=== PATIENT | female | born 1965 | race Caucasian/White ===

== ENCOUNTER → 2017-11-06 09:36 | Outpatient (CLI) | payer OTHER, MEDICAID, SELFPAY ==
--- NOTE | 2017-11-06 09:37 | DI.RAD.S_ITS ---
PROCEDURE: XR HIP W PEL IF DONE LT 2V INDICATIONS: left hip pain TECHNIQUE: 2 views of the hip were acquired. COMPARISON: None. FINDINGS: Bones: No fractures or dislocations. No suspicious bony lesions. The visualized pelvic ring appears intact. Soft tissues: No suspicious soft tissue calcifications or masses. IMPRESSION: Normal for age, source of current symptoms is not seen. Dictated by: Alfie Meza M.D. on 11/06/2017 at 9:53 Approved by: Alfie Meza M.D. on 11/06/2017 at 9:53
== END ==
PROVIDERS: PCP Physician Assistant; Visit Provider Physician Assistant
DX: M25.552 Pain in left hip (principal)
CPT/HCPCS: 73502

== ENCOUNTER → 2017-12-07 09:32 | Outpatient (CLI) | payer OTHER, MEDICAID, SELFPAY ==
--- NOTE | 2017-12-07 09:37 | DI.MRI.S_ITS ---
PROCEDURE: MR LUMBAR SPINE WO CON INDICATIONS: BACK PAIN RADICULAR PAIN OF LEFT LEG TECHNIQUE: Noncontrast sagittal T1 spin echo and T2 fast echo, sagittal STIR, axial T1 and T2 fast spin echo through the lumbar spine. In cases with scoliosis, additional coronal T2 fast spin echo may be performed. COMPARISON: [facility], , L-SPINE 2-3 VIEWS, 08/10/2017, 16:25. FINDINGS: Image quality: Excellent. Alignment and Curvature: There is normal bony alignment. Bone Marrow: Marrow is of normal overall signal. Minimal reactive endplate changes are present at T12-L1. No acute vertebral body compression fractures. Spinal Cord: Conus medullaris terminates at the L1-2 level. Visualized cord demonstrates normal signal and size. Paraspinous Soft Tissues: No paravertebral masses. Discs: Mild desiccation is present at L3-4, minimal throughout the remainder of the lumbar spine. L1-L2: No disc bulge, spinal stenosis or foraminal narrowing. Minimal epidural lipomatosis. Minimal facet and ligamentum flavum hypertrophy. L2-L3: Minimal disc bulge without spinal stenosis or foraminal narrowing. Minimal epidural lipomatosis as well as minimal to mild facet/ligamentum flavum hypertrophy. L3-L4: Mild disc bulge with minimal spinal stenosis. Mild epidural lipmatosis. Mild facet and ligamentum flavum hypertrophy. Moderate left and mild right foraminal narrowing. L4-L5: Mild disc bulge with minimal canal narrowing. [id number] left and mild right foraminal narrowing with mild facet and ligamentum flavum hypertrophy. Minimal epidural lipomatosis is present. L5-S1: Minimal disc bulge without spinal stenosis. Minimal to mild bilateral foraminal narrowing with facet and ligamentum flavum hypertrophy. IMPRESSION: 1. Multilevel disc bulges. 2. Minimal spinal stenosis predominantly secondary to disc bulges with contributing facet/ligamentum flavum arthropathy. 3. Mild to moderate multilevel foraminal narrowing predominantly secondary to facet/ligamentum flavum arthropathy. Most prominent levels are identified at L3-4 and L4-5. Dictated by: Lisa Dupree M.D. on 12/07/2017 at 13:49 Approved by: Lisa Dupree M.D. on 12/07/2017 at 15:26
== END ==
PROVIDERS: Family Provider Physician Assistant; PCP Physician Assistant; Visit Provider Physician Assistant
DX: M54.9 Dorsalgia, unspecified (principal); M79.605 Pain in left leg; M51.26 Other intervertebral disc displacement, lumbar region; M48.061 Spinal stenosis, lumbar region without neurogenic claudication
CPT/HCPCS: 72148

== ENCOUNTER → 2017-12-14 14:58 | Outpatient (CLI) | payer OTHER, MEDICAID, SELFPAY ==
--- NOTE | 2017-12-14 | DI.MG.S_ITS ---
BILATERAL DIGITAL SCREENING MAMMOGRAM 3D/2D WITH CAD: 12/14/2017 CLINICAL: Routine screening. Family history of breast cancer. Comparison is made to exam dated: 12/28/2007 mammogram - [facility]. There are scattered fibroglandular elements in both breasts. Current study was also evaluated with a Computer Aided Detection (CAD) system. There is a focal asymmetry in the left breast middle depth lateral region seen on the craniocaudal view only. No other significant masses, calcifications, or other findings are seen in either breast. IMPRESSION: INCOMPLETE: NEEDS ADDITIONAL IMAGING EVALUATION The focal asymmetry in the left breast is indeterminate. Additional views with possible ultrasound are recommended. This exam was interpreted at Station ID: [id number]. NOTE: For mammograms, a report in lay terms will be sent to the patient. Approximately 15% of breast malignancies will not be visualized mammographically. In the management of a palpable breast mass, a negative mammogram must not discourage biopsy of a clinically suspicious lesion. Electronically Signed By: Jose Martin cali/oli:12/14/2017 17:27:13 letter sent: Additional Imaging Needed ACR BI-RADS Category 0: Incomplete 3340F
== END ==
PROVIDERS: Family Provider Physician Assistant; PCP Physician Assistant; Visit Provider Physician Assistant
DX: Z12.31 Encounter for screening mammogram for malignant neoplasm of breast (principal); Z80.3 Family history of malignant neoplasm of breast
CPT/HCPCS: 77063; 77067

== ENCOUNTER → 2018-01-15 09:24 | Outpatient (CLI) | payer OTHER, MEDICAID, SELFPAY ==
--- NOTE | 2018-01-15 09:26 | DI.MG.S_ITS ---
UNILATERAL LEFT DIGITAL DIAGNOSTIC MAMMOGRAM 3D/2D WITH ADDITIONAL VIEWS: 01/15/2018 CLINICAL: Additional evaluation requested from prior study. Comparison is made to exams dated: 12/14/2017 mammogram - [facility] and 12/28/2007 mammogram - [facility]. There are scattered fibroglandular elements in the left breast. The benign focal asymmetry in the left breast middle depth lateral region seen on the craniocaudal view only is not seen in additional views. No other significant masses or calcifications are seen in the breast. IMPRESSION: BENIGN There is no mammographic evidence of malignancy. A 1 year screening mammogram is recommended. This exam was interpreted at Station ID: [id number]. NOTE: For mammograms, a report in lay terms will be sent to the patient. Approximately 15% of breast malignancies will not be visualized mammographically. In the management of a palpable breast mass, a negative mammogram must not discourage biopsy of a clinically suspicious lesion. Electronically Signed By: Collette Murphy M.D. lk/:01/15/2018 10:12:12 letter sent: Normal Exam ACR BI-RADS Category 2: Benign Finding(s) 3342F
== END ==
PROVIDERS: Family Provider Physician Assistant; PCP Physician Assistant; Visit Provider Physician Assistant
DX: R92.8 Other abnormal and inconclusive findings on diagnostic imaging of breast (principal)
CPT/HCPCS: 77065; G0279

== ENCOUNTER → 2018-03-15 11:37 | Outpatient (CLI) | payer OTHER, MEDICAID, SELFPAY ==
[2018-03-15 12:55] LABS: Alanine Aminotransferase 34 IU/L (9-52); Albumin 4.9 g/dL (3.5-5.0); Albumin Globulin Ratio 1.5 (1.0-2.8); Alkaline Phosphatase 48 U/L (38-126); Aspartate Aminotransferase 32 IU/L (14-36); Bilirubin Total 0.8 mg/dL (0.2-1.3); Blood Urea Nitrogen 15 mg/dL (7-17); Calcium 10.3 mg/dL (8.4-10.2); Carbon Dioxide 29 mmol/L (22-32); Chloride 100 mmol/L (98-107); Cholesterol 263 mg/dL (140-199); Estimated Glomerular Filt Rate > 60.0 mL/min (>60); Globulin 3.3 g/dL (1.7-4.1); Glucose 104 mg/dL (70-100); HDL Cholesterol 84 mg/dL (40-60); HEMOLYSIS < 15 (0-50); LDL Cholesterol Calculated 146 mg/dL (<100); Potassium 4.1 mmol/L (3.4-5.1); Sodium 140 mmol/L (137-145); Total Protein 8.2 g/dL (6.3-8.2); Triglycerides 166 mg/dL (35-150)
[2018-03-15 13:23] LABS: Free T4, Direct Thyroxine 0.89 ng/dL (0.78-2.19)
== END ==
PROVIDERS: PCP Physician Assistant; Visit Provider Physician Assistant
DX: E78.2 Mixed hyperlipidemia (principal); M25.552 Pain in left hip; Z83.49 Family history of other endocrine, nutritional and metabolic diseases
CPT/HCPCS: 36415; 80053; 80061; 84439; 84443; 84481

== ENCOUNTER 2018-06-13 11:05 | Emergency (ER) | payer OTHER, MEDICAID, SELFPAY ==
[2018-06-13 11:27] VITALS: BP 157/87; PULSE 79; RESP 18; TEMP 36.9; O2SAT 98; BMI 27.4
--- NOTE | 2018-06-13 12:17 | ED.URI ---
HPI - URI/Sore Throat <CASSANDRA Castellanos - Last Filed: 06/13/18 22:06> General Chief Complaint: Upper Respiratory Symptoms Stated Complaint: CHEST COLD FOR A WEEK Time Seen by Provider: 06/13/18 12:06 Source: patient Mode of arrival: ambulatory Limitations: no limitations History of Present Illness HPI Narrative: 52-year-old healthy female that is a nonsmoker here for complaint of having a cold-like symptoms for the past week. She states she has had a productive cough. No known fever. Positive p.o. intake. She has been using guaifenesin to help with her congestion. She also reports she has had anterior chest pain over the past couple days she thinks is most likely due to cough. She does state that a couple days ago she felt like she was short of breath but she has no shortness of breath at this time. She reports increased pain to the chest with cough. She denies any relievers of her discomfort. No nausea vomiting. No diaphoresis. MD Complaint: cough Related Data Previous Rx's Medication Instructions Recorded diazepam 5 mg PO TID PRN #15 tab 08/04/17 lorazepam 1 mg tablet 1 mg PO ONCE PRN #1 tab 11/06/17 Allergies Allergy/AdvReac Type Severity Reaction Status Date / Time codeine [CODEINE] Allergy Unknown jittery,hea Verified 06/13/18 11:35 dache pain killers Allergy Unknown severe Uncoded 06/13/18 11:35 headache SULFA Allergy Unknown RASH, DALE, Uncoded 06/13/18 11:35 NAUSEA Review of Systems <CASSANDRA Castellanos - Last Filed: 06/13/18 22:06> Constitutional Denies chills, Denies fatigue, Denies fever(s), Denies lethargy and Denies weakness Eyes Denies change in vision, Denies eye discharge, Denies irritation and Denies loss of vision ENT Ears, Nose, Mouth, and Throat: Denies change in voice, Denies neck pain, Denies sore throat and Denies throat swelling Cardiovascular Reports chest pain Respiratory Reports cough and Denies wheezing Gastrointestinal Gastrointestinal: Denies abdominal pain, Denies change in bowel habits, Denies diarrhea, Denies nausea and Denies vomiting Genitourinary Denies hematuria, Denies flank pain, Denies urinary incontinence and Denies urinary urgency Musculoskeletal Denies neck pain Integumentary/Breasts Denies pruritus, Denies erythema, Denies rash and Denies wounds Neurologic Denies confusion, Denies loss of vision and Denies weakness Psychiatric Denies anxiety, Denies confusion, Denies depression, Denies homicidal ideation and Denies suicidal ideation Endocrine Denies fatigue and Denies flushing Hematologic/Lymphatic Denies easy bruising Allergic/Immunologic Denies urticaria, Denies throat swelling and Denies wheezing Exam <CASSANDRA Castellanos - Last Filed: 06/13/18 22:06> Initial Vital Signs Initial Vital Signs: Vital Signs Temperature 98.4 F 06/13/18 11:27 Pulse Rate 79 06/13/18 11:27 Respiratory Rate 18 06/13/18 11:27 Blood Pressure 157/87 H 06/13/18 11:27 Pulse Oximetry 98 06/13/18 11:27 Const General: cooperative and well developed Nutritional Appearance: well nourished Orientation: alert, awake, oriented x3 and not confused HENMT Mouth: oral mucosae normal and mucous membranes abnormal Eyes Conjunctivae: conjunctivae normal Sclera: sclerae normal Pupils: PERRL EOM: EOM intact bilaterally Chest Chest: normal inspection of the chest Other: Tenderness with palpation to the left anterior chest Resp Effort & Inspection: normal respiratory effort, able to speak in complete sentences, no respiratory distress and no use of accessory muscles Auscultation: clear to auscultation bilaterally, no rales, no rhonchi and no wheezes Cardio Rate: regular rate Rhythm: regular rhythm Heart Sounds: no click, no gallops, no murmurs and no rubs Skin General: no rashes or lesions noted, No jaundice and No petechiae Neuro General: alert, oriented x3, gait normal and no focal motor deficits Speech: speech normal <Danny Ireland DO - Last Filed: 06/16/18 08:35> Initial Vital Signs Initial Vital Signs: Vital Signs Temperature 98.4 F 06/13/18 11:27 Pulse Rate 79 06/13/18 11:27 Respiratory Rate 18 06/13/18 11:27 Blood Pressure 157/87 H 06/13/18 11:27 Pulse Oximetry 98 06/13/18 11:27 Scores <CASSANDRA Castellanos - Last Filed: 06/13/18 22:06> HEART Score Heart Score history: Slightly Suspicious Heart Score EKG: Normal Heart Score Age: 45-64 years old Heart Score risk factors: No known risk factors Heart Score troponin: < or = to normal limit Heart Score Total: 1 Course <CASSANDRA Castellanos - Last Filed: 06/13/18 22:06> Orders Ordered: ED Orders 06/13/18 11:37 EKG-12 Lead Stat 06/13/18 12:24 XR chest 2V Stat 06/13/18 12:38 Complete Blood Count AUTO DIFF Stat Comprehensive Metabolic Panel Stat Lipase Stat Troponin & CK Cardiac Panel Stat Vital Signs - 8 hr 06/13/18 14:41 Pulse Rate 79 Respiratory Rate 18 Blood Pressure [Left Arm] 106/87 Pulse Oximetry 96 <Danny Ireland DO - Last Filed: 06/16/18 08:35> Orders Ordered: ED Orders 06/13/18 11:37 EKG-12 Lead Stat 06/13/18 12:24 XR chest 2V Stat 06/13/18 12:38 Complete Blood Count AUTO DIFF Stat Comprehensive Metabolic Panel Stat Lipase Stat Troponin & CK Cardiac Panel Stat Vital Signs - 8 hr 06/13/18 14:41 Pulse Rate 79 Respiratory Rate 18 Blood Pressure [Left Arm] 106/87 Pulse Oximetry 96 MDM - URI/Sore Throat <CASSANDRA Castellanos - Last Filed: 06/13/18 22:06> Lab Data Result diagrams: 06/13/18 12:38 06/13/18 12:38 Lab Results 06/13/18 06/13/18 Range/Units 12:38 12:38 WBC 6.2 (4.5-11.0) X10^3/uL RBC 3.97 L (4.0-5.2) X10^6/uL Hgb 13.7 (12.0-16.0) g/dL Hct 39.7 (36-46) % MCV 100.2 H (80-100) fL MCH 34.5 H (26-34) PG MCHC 34.4 (30-36) % RDW 13.4 (11.6-14.8) % Plt Count 253 (150-400) X10^3/uL Neut % (Auto) 60.2 (50-75) % Lymph % (Auto) 25.8 (25-40) % Fountain % (Auto) 12.0 (3-14) % Eos % (Auto) 1.4 L (2-4) % Baso % (Auto) 0.6 (0-2) % Neut # (Auto) 3700 (8742-5567) /uL Sodium 137 (137-145) mmol/L Potassium 4.5 (3.4-5.1) mmol/L Chloride 101 (98-107) mmol/L Carbon Dioxide 25 (22-32) mmol/L BUN 17 (7-17) mg/dL Creatinine 0.60 (0.52-1.04) mg/dL Estimated GFR > 60.0 (>60) mL/min BUN/Creatinine Ratio 28.3 H (6-22) Glucose 97 (70-100) mg/dL Calcium 9.9 (8.4-10.2) mg/dL Total Bilirubin 0.5 (0.2-1.3) mg/dL AST 36 (14-36) IU/L ALT 39 (9-52) IU/L Alkaline Phosphatase 49 (38-126) U/L Total Creatine Kinase 52 (30-135) U/L CK-MB (CK-2) TNP CK-MB (CK-2) Rel Index TNP Troponin I < 0.012 (0.01-0.034) ng/mL Total Protein 8.1 (6.3-8.2) g/dL Albumin 4.9 (3.5-5.0) g/dL Globulin 3.2 (1.7-4.1) g/dL Albumin/Globulin Ratio 1.5 (1.0-2.8) Lipase 66 (23-300) U/L Imaging Data Chest x-ray: Radiologist's impression: Launch Image View Report History Print [address] [address] XRay Report Signed Patient: Paige Lamebrt MR#: [id number] : 1965 Acct:[id number] Age/Sex: 52 / F Date of Service: 06/13/18 Loc: ED Accession Number: [id number] Procedure: XR chest 2V Ordering Provider: Chuy Martinez PROCEDURE: XR CHEST 2V INDICATIONS: Cough for the last week with chest pain last couple days TECHNIQUE: 2 views of the chest were acquired. COMPARISON: [facility], CR, CHEST 2 VIEW, 10/19/2011, 19:06. FINDINGS: Surgical changes and devices: None. Lungs and pleura: No pleural effusions or pneumothorax. Lungs are clear. Mediastinum: Mediastinal contours are normal. Heart size is normal. Bones and chest wall: No suspicious bony abnormalities. Soft tissues appear unremarkable. IMPRESSION: No acute cardiopulmonary disease. Dictated by: Andrey Moise M.D. on 06/13/2018 at 14:45 Approved by: Andrey Moise M.D. on 06/13/2018 at 14:46 ECG Data Interpretation: EKG shows normal sinus rhythm with no ST elevation or depression. No ectopy. Ventricular rate is 73. Pr interval of 170. QRS duration 92. QTC of 410 MDM Narrative Medical decision making narrative: EKG shows normal sinus rhythm no ST elevation or depression. No ectopy. CBC and Chem panel were obtained were unremarkable. Cardiac enzymes were obtained and were negative. Chest x-ray shows no acute cardiopulmonary disease. Sinus symptoms presents as a viral upper respiratory infection with anterior chest wall pain secondary to cough. Enit-yfw-qiowpti Tylenol or Motrin as needed for any discomfort. Plenty of fluids. For any worsening symptoms return emergency room. <Danny Ireland, DO - Last Filed: 06/16/18 08:35> Lab Data Lab Results 06/13/18 06/13/18 Range/Units 12:38 12:38 WBC 6.2 (4.5-11.0) X10^3/uL RBC 3.97 L (4.0-5.2) X10^6/uL Hgb 13.7 (12.0-16.0) g/dL Hct 39.7 (36-46) % MCV 100.2 H (80-100) fL MCH 34.5 H (26-34) PG MCHC 34.4 (30-36) % RDW 13.4 (11.6-14.8) % Plt Count 253 (150-400) X10^3/uL Neut % (Auto) 60.2 (50-75) % Lymph % (Auto) 25.8 (25-40) % Fountain % (Auto) 12.0 (3-14) % Eos % (Auto) 1.4 L (2-4) % Baso % (Auto) 0.6 (0-2) % Neut # (Auto) 3700 (9861-3771) /uL Sodium 137 (137-145) mmol/L Potassium 4.5 (3.4-5.1) mmol/L Chloride 101 (98-107) mmol/L Carbon Dioxide 25 (22-32) mmol/L BUN 17 (7-17) mg/dL Creatinine 0.60 (0.52-1.04) mg/dL Estimated GFR > 60.0 (>60) mL/min BUN/Creatinine Ratio 28.3 H (6-22) Glucose 97 (70-100) mg/dL Calcium 9.9 (8.4-10.2) mg/dL Total Bilirubin 0.5 (0.2-1.3) mg/dL AST 36 (14-36) IU/L ALT 39 (9-52) IU/L Alkaline Phosphatase 49 (38-126) U/L Total Creatine Kinase 52 (30-135) U/L CK-MB (CK-2) TNP CK-MB (CK-2) Rel Index TNP Troponin I < 0.012 (0.01-0.034) ng/mL Total Protein 8.1 (6.3-8.2) g/dL Albumin 4.9 (3.5-5.0) g/dL Globulin 3.2 (1.7-4.1) g/dL Albumin/Globulin Ratio 1.5 (1.0-2.8) Lipase 66 (23-300) U/L Discharge Plan Departure Patient Disposition: Home Clinical Impression: Upper respiratory infection Discharge Date/Time: 06/13/18 15:07 Interventions: ED Discharge Assessment Last Done: 06/13/18 15:07 Instructions: DI for Viral Upper Respiratory Infection -- Adult Activity Restrictions/Additional Instructions: EKG today was unremarkable. Chest x-ray was negative for any acute findings. Laboratory results were negative. Cardiac enzymes were negative. Sinus symptoms presents as a viral upper respiratory infection with secondary chest wall pain due to cough. Plenty of fluids and rest. [id number]-dcywihu Tylenol or Motrin as needed for discomfort. Follow up with primary care provider. Return emergency room for any worsening symptoms. Prescriptions: No Action lorazepam 1 mg tablet 1 mg PO ONCE PRN (Reason: pre med for MRI) Qty: 1 RF: 0 diazepam 5 MG tablet 5 mg PO TID PRNQty: 15 RF: 0 Referrals: Yessi Degroot PA-C [Primary Care Provider] - <Danny Ireland DO - Last Filed: 06/16/18 08:35> Cosign ED Attending Steph Attestation: I was available for consultation during this patient's emergency department encounter
--- NOTE | 2018-06-13 12:24 | DI.RAD.S_ITS ---
PROCEDURE: XR CHEST 2V INDICATIONS: Cough for the last week with chest pain last couple days TECHNIQUE: 2 views of the chest were acquired. COMPARISON: [facility], , CHEST 2 VIEW, 10/19/2011, 19:06. FINDINGS: Surgical changes and devices: None. Lungs and pleura: No pleural effusions or pneumothorax. Lungs are clear. Mediastinum: Mediastinal contours are normal. Heart size is normal. Bones and chest wall: No suspicious bony abnormalities. Soft tissues appear unremarkable. IMPRESSION: No acute cardiopulmonary disease. Dictated by: Andrey Moise M.D. on 06/13/2018 at 14:45 Approved by: Andrey Moise M.D. on 06/13/2018 at 14:46
--- NOTE | 2018-06-13 12:41 | ED_ITS ---
HPI - URI/Sore Throat <CASSANDRA Castellanos - Last Filed: 06/13/18 22:06> General Chief Complaint: Upper Respiratory Symptoms Stated Complaint: CHEST COLD FOR A WEEK Time Seen by Provider: 06/13/18 12:06 Source: patient Mode of arrival: ambulatory Limitations: no limitations History of Present Illness HPI Narrative: 52-year-old healthy female that is a nonsmoker here for complaint of having a cold-like symptoms for the past week. She states she has had a productive cough. No known fever. Positive p.o. intake. She has been using guaifenesin to help with her congestion. She also reports she has had anterior chest pain over the past couple days she thinks is most likely due to cough. She does state that a couple days ago she felt like she was short of breath but she has no shortness of breath at this time. She reports increased pain to the chest with cough. She denies any relievers of her discomfort. No nausea vomiting. No diaphoresis. MD Complaint: cough Related Data Previous Rx's Medication Instructions Recorded diazepam 5 mg PO TID PRN #15 tab 08/04/17 lorazepam 1 mg tablet 1 mg PO ONCE PRN #1 tab 11/06/17 Allergies Allergy/AdvReac Type Severity Reaction Status Date / Time codeine [CODEINE] Allergy Unknown jittery,hea Verified 06/13/18 11:35 dache pain killers Allergy Unknown severe Uncoded 06/13/18 11:35 headache SULFA Allergy Unknown RASH, DALE, Uncoded 06/13/18 11:35 NAUSEA Review of Systems <CASSANDRA Castellanos - Last Filed: 06/13/18 22:06> Constitutional Denies chills, Denies fatigue, Denies fever(s), Denies lethargy and Denies weakness Eyes Denies change in vision, Denies eye discharge, Denies irritation and Denies loss of vision ENT Ears, Nose, Mouth, and Throat: Denies change in voice, Denies neck pain, Denies sore throat and Denies throat swelling Cardiovascular Reports chest pain Respiratory Reports cough and Denies wheezing Gastrointestinal Gastrointestinal: Denies abdominal pain, Denies change in bowel habits, Denies diarrhea, Denies nausea and Denies vomiting Genitourinary Denies hematuria, Denies flank pain, Denies urinary incontinence and Denies urinary urgency Musculoskeletal Denies neck pain Integumentary/Breasts Denies pruritus, Denies erythema, Denies rash and Denies wounds Neurologic Denies confusion, Denies loss of vision and Denies weakness Psychiatric Denies anxiety, Denies confusion, Denies depression, Denies homicidal ideation and Denies suicidal ideation Endocrine Denies fatigue and Denies flushing Hematologic/Lymphatic Denies easy bruising Allergic/Immunologic Denies urticaria, Denies throat swelling and Denies wheezing Exam <CASSANDRA Castellanos - Last Filed: 06/13/18 22:06> Initial Vital Signs Initial Vital Signs: Vital Signs Temperature 98.4 F 06/13/18 11:27 Pulse Rate 79 06/13/18 11:27 Respiratory Rate 18 06/13/18 11:27 Blood Pressure 157/87 H 06/13/18 11:27 Pulse Oximetry 98 06/13/18 11:27 Const General: cooperative and well developed Nutritional Appearance: well nourished Orientation: alert, awake, oriented x3 and not confused HENMT Mouth: oral mucosae normal and mucous membranes abnormal Eyes Conjunctivae: conjunctivae normal Sclera: sclerae normal Pupils: PERRL EOM: EOM intact bilaterally Chest Chest: normal inspection of the chest Other: Tenderness with palpation to the left anterior chest Resp Effort & Inspection: normal respiratory effort, able to speak in complete sentences, no respiratory distress and no use of accessory muscles Auscultation: clear to auscultation bilaterally, no rales, no rhonchi and no wheezes Cardio Rate: regular rate Rhythm: regular rhythm Heart Sounds: no click, no gallops, no murmurs and no rubs Skin General: no rashes or lesions noted, No jaundice and No petechiae Neuro General: alert, oriented x3, gait normal and no focal motor deficits Speech: speech normal <Danny Ireland DO - Last Filed: 06/16/18 08:35> Initial Vital Signs Initial Vital Signs: Vital Signs Temperature 98.4 F 06/13/18 11:27 Pulse Rate 79 06/13/18 11:27 Respiratory Rate 18 06/13/18 11:27 Blood Pressure 157/87 H 06/13/18 11:27 Pulse Oximetry 98 06/13/18 11:27 Scores <CASSANDRA Castellanos - Last Filed: 06/13/18 22:06> HEART Score Heart Score history: Slightly Suspicious Heart Score EKG: Normal Heart Score Age: 45-64 years old Heart Score risk factors: No known risk factors Heart Score troponin: < or = to normal limit Heart Score Total: 1 Course <CASSANDRA Castellanos - Last Filed: 06/13/18 22:06> Orders Ordered: ED Orders 06/13/18 11:37 EKG-12 Lead Stat 06/13/18 12:24 XR chest 2V Stat 06/13/18 12:38 Complete Blood Count AUTO DIFF Stat Comprehensive Metabolic Panel Stat Lipase Stat Troponin & CK Cardiac Panel Stat Vital Signs - 8 hr 06/13/18 14:41 Pulse Rate 79 Respiratory Rate 18 Blood Pressure [Left Arm] 106/87 Pulse Oximetry 96 <Danny Ireland DO - Last Filed: 06/16/18 08:35> Orders Ordered: ED Orders 06/13/18 11:37 EKG-12 Lead Stat 06/13/18 12:24 XR chest 2V Stat 06/13/18 12:38 Complete Blood Count AUTO DIFF Stat Comprehensive Metabolic Panel Stat Lipase Stat Troponin & CK Cardiac Panel Stat Vital Signs - 8 hr 06/13/18 14:41 Pulse Rate 79 Respiratory Rate 18 Blood Pressure [Left Arm] 106/87 Pulse Oximetry 96 MDM - URI/Sore Throat <CASSANDRA Castellanos - Last Filed: 06/13/18 22:06> Lab Data Result diagrams: 06/13/18 12:38 06/13/18 12:38 Lab Results 06/13/18 06/13/18 Range/Units 12:38 12:38 WBC 6.2 (4.5-11.0) X10^3/uL RBC 3.97 L (4.0-5.2) X10^6/uL Hgb 13.7 (12.0-16.0) g/dL Hct 39.7 (36-46) % MCV 100.2 H (80-100) fL MCH 34.5 H (26-34) PG MCHC 34.4 (30-36) % RDW 13.4 (11.6-14.8) % Plt Count 253 (150-400) X10^3/uL Neut % (Auto) 60.2 (50-75) % Lymph % (Auto) 25.8 (25-40) % [place] % (Auto) 12.0 (3-14) % Eos % (Auto) 1.4 L (2-4) % Baso % (Auto) 0.6 (0-2) % Neut # (Auto) 3700 (7141-6256) /uL Sodium 137 (137-145) mmol/L Potassium 4.5 (3.4-5.1) mmol/L Chloride 101 (98-107) mmol/L Carbon Dioxide 25 (22-32) mmol/L BUN 17 (7-17) mg/dL Creatinine 0.60 (0.52-1.04) mg/dL Estimated GFR > 60.0 (>60) mL/min BUN/Creatinine Ratio 28.3 H (6-22) Glucose 97 (70-100) mg/dL Calcium 9.9 (8.4-10.2) mg/dL Total Bilirubin 0.5 (0.2-1.3) mg/dL AST 36 (14-36) IU/L ALT 39 (9-52) IU/L Alkaline Phosphatase 49 (38-126) U/L Total Creatine Kinase 52 (30-135) U/L CK-MB (CK-2) TNP CK-MB (CK-2) Rel Index TNP Troponin I < 0.012 (0.01-0.034) ng/mL Total Protein 8.1 (6.3-8.2) g/dL Albumin 4.9 (3.5-5.0) g/dL Globulin 3.2 (1.7-4.1) g/dL Albumin/Globulin Ratio 1.5 (1.0-2.8) Lipase 66 (23-300) U/L Imaging Data Chest x-ray: Radiologist's impression: Launch Image View Report History Print [address] [address] XRay Report Signed Patient: Paige Lambert MR#: [id number] : 1965 Acct:[id number] Age/Sex: 52 / F Date of Service: 06/13/18 Loc: ED Accession Number: [id number] Procedure: XR chest 2V Ordering Provider: Chuy Martinez PROCEDURE: XR CHEST 2V INDICATIONS: Cough for the last week with chest pain last couple days TECHNIQUE: 2 views of the chest were acquired. COMPARISON: [facility], CR, CHEST 2 VIEW, 10/19/2011, 19:06. FINDINGS: Surgical changes and devices: None. Lungs and pleura: No pleural effusions or pneumothorax. Lungs are clear. Mediastinum: Mediastinal contours are normal. Heart size is normal. Bones and chest wall: No suspicious bony abnormalities. Soft tissues appear unremarkable. IMPRESSION: No acute cardiopulmonary disease. Dictated by: Andrey Moise M.D. on 06/13/2018 at 14:45 Approved by: Andrey Moise M.D. on 06/13/2018 at 14:46 ECG Data Interpretation: EKG shows normal sinus rhythm with no ST elevation or depression. No ectopy. Ventricular rate is 73. Pr interval of 170. QRS duration 92. QTC of 410 MDM Narrative Medical decision making narrative: EKG shows normal sinus rhythm no ST elevation or depression. No ectopy. CBC and Chem panel were obtained were unremarkable. Cardiac enzymes were obtained and were negative. Chest x-ray shows no acute cardiopulmonary disease. Sinus symptoms presents as a viral upper respiratory infection with anterior chest wall pain secondary to cough. [id number]-hconmis Tylenol or Motrin as needed for any discomfort. Plenty of fluids. For any worsening symptoms return emergency room. <Danny Ireland, DO - Last Filed: 06/16/18 08:35> Lab Data Lab Results 06/13/18 06/13/18 Range/Units 12:38 12:38 WBC 6.2 (4.5-11.0) X10^3/uL RBC 3.97 L (4.0-5.2) X10^6/uL Hgb 13.7 (12.0-16.0) g/dL Hct 39.7 (36-46) % MCV 100.2 H (80-100) fL MCH 34.5 H (26-34) PG MCHC 34.4 (30-36) % RDW 13.4 (11.6-14.8) % Plt Count 253 (150-400) X10^3/uL Neut % (Auto) 60.2 (50-75) % Lymph % (Auto) 25.8 (25-40) % [place] % (Auto) 12.0 (3-14) % Eos % (Auto) 1.4 L (2-4) % Baso % (Auto) 0.6 (0-2) % Neut # (Auto) 3700 (2128-7211) /uL Sodium 137 (137-145) mmol/L Potassium 4.5 (3.4-5.1) mmol/L Chloride 101 (98-107) mmol/L Carbon Dioxide 25 (22-32) mmol/L BUN 17 (7-17) mg/dL Creatinine 0.60 (0.52-1.04) mg/dL Estimated GFR > 60.0 (>60) mL/min BUN/Creatinine Ratio 28.3 H (6-22) Glucose 97 (70-100) mg/dL Calcium 9.9 (8.4-10.2) mg/dL Total Bilirubin 0.5 (0.2-1.3) mg/dL AST 36 (14-36) IU/L ALT 39 (9-52) IU/L Alkaline Phosphatase 49 (38-126) U/L Total Creatine Kinase 52 (30-135) U/L CK-MB (CK-2) TNP CK-MB (CK-2) Rel Index TNP Troponin I < 0.012 (0.01-0.034) ng/mL Total Protein 8.1 (6.3-8.2) g/dL Albumin 4.9 (3.5-5.0) g/dL Globulin 3.2 (1.7-4.1) g/dL Albumin/Globulin Ratio 1.5 (1.0-2.8) Lipase 66 (23-300) U/L Discharge Plan Departure Patient Disposition: Home Clinical Impression: Upper respiratory infection Discharge Date/Time: 06/13/18 15:07 Interventions: ED Discharge Assessment Last Done: 06/13/18 15:07 Instructions: DI for Viral Upper Respiratory Infection -- Adult Activity Restrictions/Additional Instructions: EKG today was unremarkable. Chest x-ray was negative for any acute findings. Laboratory results were negative. Cardiac enzymes were negative. Sinus symptoms presents as a viral upper respiratory infection with secondary chest wall pain due to cough. Plenty of fluids and rest. [id number]-[id number] Tylenol or Motrin as needed for discomfort. Follow up with primary care provider. Return emergency room for any worsening symptoms. Prescriptions: No Action lorazepam 1 mg tablet 1 mg PO ONCE PRN (Reason: pre med for MRI) Qty: 1 RF: 0 diazepam 5 MG tablet 5 mg PO TID PRNQty: 15 RF: 0 Referrals: Yessi Degroot PA-C [Primary Care Provider] - <Danny Ireland DO - Last Filed: 06/16/18 08:35> Cosign ED Attending Steph Attestation: I was available for consultation during this patient's emergency department encounter
[2018-06-13 12:44] VITALS: PULSE 69; RESP 18; O2SAT 99
[2018-06-13 12:46] LABS: Add Manual Diff / Slide Review NO; Basophils Percent Auto 0.6 % (0-2); Eosinophils Percent Auto 1.4 % (2-4); Hematocrit 39.7 % (36-46); Hemoglobin 13.7 g/dL (12.0-16.0); Lymphocytes Percent Auto 25.8 % (25-40); Mean Corpuscular HGB Conc 34.4 % (30-36); Mean Corpuscular Hemoglobin 34.5 PG (26-34); Mean Corpuscular Volume 100.2 fL (80-100); Neutrophils Absolute Auto 3700 /uL (1500-7000); Neutrophils Percent Auto 60.2 % (50-75); Platelet Count 253 X10^3/uL (150-400); Red Blood Cell Count 3.97 X10^6/uL (4.0-5.2); Red Cell Distribution Width 13.4 % (11.6-14.8); White Blood Cell Count 6.2 X10^3/uL (4.5-11.0)
[2018-06-13 12:55] LABS: Alanine Aminotransferase 39 IU/L (9-52); Albumin 4.9 g/dL (3.5-5.0); Albumin Globulin Ratio 1.5 (1.0-2.8); Alkaline Phosphatase 49 U/L (38-126); Aspartate Aminotransferase 36 IU/L (14-36); BUN Creatinine Ratio 28.3 (6-22); Bilirubin Total 0.5 mg/dL (0.2-1.3); Blood Urea Nitrogen 17 mg/dL (7-17); Calcium 9.9 mg/dL (8.4-10.2); Carbon Dioxide 25 mmol/L (22-32); Chloride 101 mmol/L (98-107); Creatine Kinase 52 U/L (30-135); Estimated Glomerular Filt Rate > 60.0 mL/min (>60); Globulin 3.2 g/dL (1.7-4.1); Glucose 97 mg/dL (70-100); HEMOLYSIS < 15 (0-50); Lipase 66 U/L (23-300); Potassium 4.5 mmol/L (3.4-5.1); Sodium 137 mmol/L (137-145); Total Protein 8.1 g/dL (6.3-8.2)
[2018-06-13 13:07] LABS: Troponin I < 0.012 ng/mL (0.01-0.034)
[2018-06-13 13:50] VITALS: BP 152/89; PULSE 82; RESP 18; O2SAT 100
[2018-06-13 14:41] VITALS: BP 106/87; PULSE 79; RESP 18; O2SAT 96
== END 2018-06-13 15:07 | disposition home or self-care (01) ==
PROVIDERS: Emergency Provider Nurse Practitioner Family; PCP Physician Assistant
DX: J06.9 Acute upper respiratory infection, unspecified (principal)
CPT/HCPCS: 71046; 80053; 82550; 83690; 84484; 85025; 93005; 99283; 99285

== ENCOUNTER → 2018-11-22 15:41 | Outpatient (CLI) | payer OTHER, MEDICAID, SELFPAY ==
[2018-11-22 16:08] LABS: Hematocrit 38.5 % (36-46); Hemoglobin 13.2 g/dL (12.0-16.0); Mean Corpuscular HGB Conc 34.2 % (30-36); Mean Corpuscular Hemoglobin 34.5 PG (26-34); Mean Corpuscular Volume 100.7 fL (80-100); Platelet Count 272 X10^3/uL (150-400); Red Blood Cell Count 3.82 X10^6/uL (4.0-5.2); Red Cell Distribution Width 12.4 % (11.6-14.8); White Blood Cell Count 6.3 X10^3/uL (4.5-11.0)
[2018-11-22 16:51] LABS: Erythrocyte Sedimentation Rate 7 MM/HR (0-20)
[2018-11-22 17:16] LABS: HEMOLYSIS < 15 (0-50); Iron 78 ug/dL (37-170)
[2018-11-22 17:19] LABS: Alanine Aminotransferase 53 IU/L (9-52); Albumin Globulin Ratio 1.7 (1.0-2.8); Alkaline Phosphatase 47 U/L (38-126); Aspartate Aminotransferase 50 IU/L (14-36); BUN Creatinine Ratio 23.3 (6-22); Bilirubin Total 0.7 mg/dL (0.2-1.3); Blood Urea Nitrogen 14 mg/dL (7-17); Calcium 10.8 mg/dL (8.4-10.2); Carbon Dioxide 28 mmol/L (22-32); Chloride 101 mmol/L (98-107); Cholesterol 242 mg/dL (140-199); Estimated Glomerular Filt Rate > 60.0 mL/min (>60); Glucose 90 mg/dL (70-100); HDL Cholesterol 56 mg/dL (40-60); HEMOLYSIS < 15 (0-50); LDL Cholesterol Calculated 158 mg/dL (<100); Potassium 4.7 mmol/L (3.4-5.1); Sodium 137 mmol/L (137-145); Triglycerides 139 mg/dL (35-150)
[2018-11-22 17:22] LABS: Rheumatoid Factor 9.9 IU/mL (<12.0)
[2018-11-22 17:27] LABS: Percent Iron Saturation 19 % (15-50); Total Iron Binding Capacity 408 ug/dL (265-497); Transferrin 316 mg/dL (206-381)
[2018-11-22 17:31] LABS: Neutrophils Absolute Manual 3717 /uL (3000-5900); Total Cells Counted 100
[2018-11-22 17:33] LABS: RBC Morphology Normal Morphology
[2018-11-22 17:34] LABS: Vitamin D 25 Hydroxy (D3) 54.2 ng/mL (30.0-100.0)
[2018-11-22 17:50] LABS: TSH w/ Reflex to FT4 1.12 uIU/mL (0.47-4.68)
[2018-11-22 18:10] LABS: Vitamin B12 680 pg/mL (239-931)
== END ==
PROVIDERS: PCP Physician Assistant; Visit Provider Nurse Practitioner
DX: E78.2 Mixed hyperlipidemia (principal); M79.7 Fibromyalgia; Z83.49 Family history of other endocrine, nutritional and metabolic diseases
CPT/HCPCS: 36415; 80053; 80061; 82306; 82607; 83540; 83550; 83735; 84443; 85025; 85651; 86430

== ENCOUNTER → 2018-11-29 15:39 | Outpatient (CLI) | payer OTHER, MEDICAID, SELFPAY ==
[2018-11-29 17:01] LABS: Alanine Aminotransferase 32 IU/L (9-52); Albumin 4.5 g/dL (3.5-5.0); Albumin Globulin Ratio 1.6 (1.0-2.8); Alkaline Phosphatase 50 U/L (38-126); Aspartate Aminotransferase 27 IU/L (14-36); Bilirubin Total 0.6 mg/dL (0.2-1.3); Bilirubin Unconjugated 0.5 mg/dL (0.0-1.1); Calcium 9.9 mg/dL (8.4-10.2); Globulin 2.8 g/dL (1.7-4.1); HEMOLYSIS < 15 (0-50); Total Protein 7.3 g/dL (6.3-8.2)
[2018-12-02 14:55] LABS: Parathyroid Hormone Int 62 pg/mL (14-64)
== END ==
PROVIDERS: PCP Physician Assistant; Visit Provider Nurse Practitioner
DX: E83.52 Hypercalcemia (principal); R74.8 Abnormal levels of other serum enzymes
CPT/HCPCS: 36415; 80076; 82310; 83970

== ENCOUNTER → 2018-12-27 14:01 | Outpatient (CLI) | payer OTHER, MEDICAID, SELFPAY ==
--- NOTE | 2018-12-27 14:05 | DI.US.S_ITS ---
PROCEDURE: US ABDOMEN COMPLETE INDICATIONS: LUQ PAIN TECHNIQUE: Real-time scanning was performed of the abdominal and retroperitoneal organs, with image documentation. COMPARISON: None. FINDINGS: Liver: Liver is normal in size and homogeneous in echotexture. Gallbladder: Gallbladder is sonographically normal. No gallstones. No gallbladder wall thickening. No pericholecystic fluid. No sonographic Herrera sign. Biliary ducts: Intrahepatic bile ducts are non-dilated. Extrahepatic bile duct caliber measures 4.4 mm. Normal is 6-7 mm or less in diameter, or 10 mm or less post-cholecystectomy. Pancreas: Visualized portions of the pancreas are sonographically normal. Spleen: Spleen is normal in size and homogeneous in echotexture. Kidneys: Kidneys are normal in size and echotexture. Right kidney measures 10.1 cm long; left kidney measures 10.7 cm long. No hydronephrosis or nephrolithiasis. No solid masses. Aorta: Visualized aorta is normal in caliber at less than 3 cm. Iliacs: Proximal common iliac arteries are normal in caliber at less than 2.5 cm. IVC: Intrahepatic inferior vena cava is patent. Miscellaneous: No free abdominal fluid. IMPRESSION: Normal abdominal sonogram. Dictated by: Diandra Brown MD, PhD on 12/27/2018 at 17:21 Approved by: Diandra Brown MD, PhD on 12/27/2018 at 17:22
--- NOTE | 2018-12-27 14:05 | DI.MG.S_ITS ---
BILATERAL DIGITAL SCREENING MAMMOGRAM 3D/2D WITH CAD: 12/27/2018 CLINICAL: Routine screening. Family history of breast cancer. Comparison is made to exams dated: 01/15/2018 mammogram, 12/14/2017 mammogram - [facility], and 12/28/2007 mammogram - [facility]. There are scattered fibroglandular elements in both breasts. Current study was also evaluated with a Computer Aided Detection (CAD) system. No significant masses, calcifications, or other findings are seen in either breast. There has been no significant interval change. IMPRESSION: NEGATIVE There is no mammographic evidence of malignancy. A 1 year screening mammogram is recommended. This exam was interpreted at Station ID: [id number]. NOTE: For mammograms, a report in lay terms will be sent to the patient. Approximately 15% of breast malignancies will not be visualized mammographically. In the management of a palpable breast mass, a negative mammogram must not discourage biopsy of a clinically suspicious lesion. Electronically Signed By: Jarrod benedict/oli:12/27/2018 19:25:21 letter sent: Normal Exam ACR BI-RADS Category 1: Negative [id number]
== END ==
PROVIDERS: PCP Nurse Practitioner; Visit Provider Nurse Practitioner
DX: Z12.31 Encounter for screening mammogram for malignant neoplasm of breast (principal); Z80.3 Family history of malignant neoplasm of breast; R10.12 Left upper quadrant pain
CPT/HCPCS: 76700; 77063; 77067

== ENCOUNTER → 2019-06-27 15:56 | Outpatient (CLI) | payer OTHER, MEDICAID, SELFPAY ==
[2019-06-27 17:55] LABS: Add Manual Diff / Slide Review NO; Basophils Absolute Auto 0 /uL (0-100); Basophils Percent Auto 0.5 % (0-2); Eosinophils Absolute Auto 100 /uL (0-450); Eosinophils Percent Auto 1.6 % (2-4); Hematocrit 40.4 % (36-46); Hemoglobin 13.8 g/dL (12.0-16.0); Lymphocytes Absolute Auto 1600 /uL (1100-4500); Lymphocytes Percent Auto 27.4 % (25-40); Mean Corpuscular HGB Conc 34.2 % (30-36); Mean Corpuscular Hemoglobin 34.3 PG (26-34); Mean Corpuscular Volume 100.4 fL (80-100); Monocytes Absolute Auto 600 /uL (0-900); Monocytes Percent Auto 10.1 % (3-14); Neutrophils Absolute Auto 3500 /uL (1500-7000); Neutrophils Percent Auto 60.4 % (50-75); Platelet Count 290 X10^3/uL (150-400); Red Blood Cell Count 4.02 X10^6/uL (4.0-5.2); Red Cell Distribution Width 13.1 % (11.6-14.8); White Blood Cell Count 5.8 X10^3/uL (4.5-11.0)
[2019-06-27 18:06] LABS: Calcium 10.7 mg/dL (8.4-10.2)
== END ==
PROVIDERS: PCP Family Medicine; Visit Provider Family Medicine
DX: E83.52 Hypercalcemia (principal); E03.9 Hypothyroidism, unspecified; N92.0 Excessive and frequent menstruation with regular cycle; N94.6 Dysmenorrhea, unspecified
CPT/HCPCS: 36415; 82310; 83001; 84443; 85025

== ENCOUNTER → 2019-11-16 15:49 | Outpatient (CLI) | payer OTHER, MEDICAID, SELFPAY ==
[2019-11-16 17:25] LABS: Add Manual Diff / Slide Review NO; Basophils Absolute Auto 0 /uL (0-100); Basophils Percent Auto 0.8 % (0-2); Eosinophils Absolute Auto 100 /uL (0-450); Eosinophils Percent Auto 1.9 % (2-4); Hematocrit 39.1 % (36-46); Hemoglobin 13.4 g/dL (12.0-16.0); Lymphocytes Absolute Auto 1600 /uL (1100-4500); Lymphocytes Percent Auto 27.3 % (25-40); Mean Corpuscular HGB Conc 34.3 % (30-36); Mean Corpuscular Hemoglobin 34.5 PG (26-34); Mean Corpuscular Volume 100.8 fL (80-100); Monocytes Absolute Auto 700 /uL (0-900); Monocytes Percent Auto 11.3 % (3-14); Neutrophils Absolute Auto 3500 /uL (1500-7000); Neutrophils Percent Auto 58.7 % (50-75); Platelet Count 259 X10^3/uL (150-400); Red Blood Cell Count 3.88 X10^6/uL (4.0-5.2)
[2019-11-16 18:34] LABS: Calcium 10.7 mg/dL (8.4-10.2)
[2019-11-16 18:45] LABS: Urine N gonorrhoeae NOT DETECTED
[2019-11-16 19:29] LABS: Urine Chlamydia NOT DETECTED
== END ==
PROVIDERS: PCP Family Medicine; Referring Provider Nurse Practitioner Family; Visit Provider Nurse Practitioner Family
DX: R59.0 Localized enlarged lymph nodes (principal); E83.52 Hypercalcemia; Z20.2 Contact with and (suspected) exposure to infections with a predominantly sexual mode of transmission
CPT/HCPCS: 36415; 82310; 85025; 87491; 87591

== ENCOUNTER → 2019-11-17 11:03 | Outpatient (CLI) | payer OTHER, MEDICAID, SELFPAY ==
[2019-11-18 08:44] LABS: Calcium 9.7 mg/dL (8.7-10.2); Parathyroid Hormone, Intact 48 pg/mL (15-65)
== END ==
PROVIDERS: PCP Nurse Practitioner Family; Referring Provider Nurse Practitioner Family; Visit Provider Nurse Practitioner Family
DX: E83.52 Hypercalcemia (principal)
CPT/HCPCS: 36415; 82310; 83970

== ENCOUNTER → 2019-11-23 15:41 | Outpatient (CLI) | payer OTHER, MEDICAID, SELFPAY ==
--- NOTE | 2019-11-23 15:42 | DI.US.S_ITS ---
PROCEDURE: US PELVIC COMPLETE INDICATIONS: HEAVY PERIODS/INGUINAL LYMPHADENOPATHY TECHNIQUE: Real-time scanning was performed of the pelvic organs, with image documentation. Additional endovaginal scanning was necessary due to incomplete visualization of the adnexal and endometrial structures by transabdominal scanning. COMPARISON: None. FINDINGS: Transabdominal scanning: Limited scanning through the kidneys shows no hydronephrosis. No pathologic free abdominal or pelvic fluid. Endovaginal scanning: Uterus: Uterus is normal in size at the 4.9 x 6.1 x 9.7 cm, anteverted. The endometrium measures 7.5 mm in combined thickness. The myometrium is mildly heterogeneous, likely reflecting interspersed uterine fibroids. Several cervical nabothian cysts are incidentally noted. Ovaries and soft tissues: The right ovary measures 2.4 x 1.9 x 2.0 cm and appears normal. The left also is normal with dimensions of 2.9 x 1.7 x 1.6 cm. The patient reported a palpable lump of the right groin, and in this area a lobulated lymph node measuring 9 x 13 x 30 mm is present with increased vascularity. IMPRESSION: No sign of endometrial mass lesion. No ovarian mass is found. Myometrial echotexture is mildly heterogeneous likely representing interspersed near-isoechoic uterine fibroids. The patient reported a tender right groin palpable abnormality and on sonographic evaluation this appears to represent an inflamed mildly lobulated lymph node. Please correlate clinically for this finding to determine whether any additional followup imaging is warranted. Dictated by: Alfie Meza M.D. on 11/23/2019 at 16:57 Approved by: Alfie Meza M.D. on 11/23/2019 at 17:01
== END ==
PROVIDERS: PCP Nurse Practitioner Family; Referring Provider Nurse Practitioner Family; Visit Provider Nurse Practitioner Family
DX: N92.0 Excessive and frequent menstruation with regular cycle (principal); R59.0 Localized enlarged lymph nodes; N88.8 Other specified noninflammatory disorders of cervix uteri
CPT/HCPCS: 76830; 76856

== ENCOUNTER 2019-12-01 17:08 | Emergency (ER) | payer OTHER, MEDICAID, SELFPAY ==
[2019-12-01 17:11] VITALS: BP 176/88; PULSE 88; RESP 16; TEMP 37.2; O2SAT 97
--- NOTE | 2019-12-01 18:22 | ED.ABDPAIN ---
HPI - Abdominal Pain General Chief Complaint: Abdominal Pain Stated Complaint: Pelvic Pressure, Sent From Dr Time Seen by Provider: 12/01/19 17:36 Source: patient Mode of arrival: Ambulatory Limitations: no limitations History of Present Illness HPI narrative: 54-year-old female nonsmoker with history of cervical cancer presents at the request of her primary care provider for more rapid access to advanced imaging given the progression of her pelvic pain, episodes of vaginal bleeding, and painful groing lymph nodes with history of cervical cancer. She had labs and an US a few weeks ago and there is concern about the possibility of a recurrence of a pelvic cancer. She denies any fever chills. She has minimal current pain. Related Data Previous Rx's Medication Instructions Recorded diazepam 10 mg tablet 10 mg PO DAILY PRN #10 tab 06/27/19 Allergies Allergy/AdvReac Type Severity Reaction Status Date / Time codeine [CODEINE] Allergy Unknown jittery,hea Verified 12/01/19 17:17 dache pain killers Allergy Unknown severe Uncoded 12/01/19 17:17 headache SULFA Allergy Unknown RASH, DALE, Uncoded 12/01/19 17:17 NAUSEA Review of Systems Constitutional Constitutional: Denies chills, Denies fatigue, Denies fever(s), Denies frequent falls, Denies lethargy and Denies weakness Eyes Eyes: Denies change in vision, Denies eye discharge, Denies irritation and Denies loss of vision ENT Ears, Nose, Mouth, and Throat: Denies change in voice, Denies dizziness, Denies neck pain, Denies sore throat and Denies throat swelling Cardiovascular Cardiovascular: Denies chest pain, Denies irregular heart rhythm, Denies lightheadedness, Denies palpitations, Denies dyspnea, Denies dyspnea on exertion and Denies orthopnea Respiratory Respiratory: Denies cough, Denies dyspnea, Denies dyspnea on exertion and Denies wheezing Gastrointestinal Gastrointestinal: Reports abdominal pain, Denies change in bowel habits, Denies diarrhea, Denies nausea and Denies vomiting Musculoskeletal Musculoskeletal: Denies neck pain and Denies numbness Integumentary/Breasts Skin/Breast: Denies pruritus, Denies erythema, Denies rash and Denies wounds Neurologic Neurologic: Denies behavioral changes, Denies confusion, Denies dizziness, Denies frequent falls, Denies loss of vision, Denies numbness and Denies weakness Psychiatric Psychiatric: Denies anxiety, Denies behavioral changes, Denies confusion, Denies depression, Denies homicidal ideation and Denies suicidal ideation Endocrine Endocrine: Denies fatigue, Denies flushing and Denies palpitations Hematologic/Lymphatic Hematologic/Lymphatic: Denies easy bruising Allergic/Immunologic Allergic/Immunologic: Denies urticaria, Denies throat swelling and Denies wheezing Patient History Medical History Abnormal pelvic ultrasound (Acute) Anxiety (Acute) Cervical cancer (Resolved 2002) Chickenpox (Resolved 1976) Chronic low back pain (Chronic ~07/2017) History of recurrent ear infection (Chronic 1974) Kidney disease (Chronic 1979) Muscle twitching (Acute) Surgical History History of loop electrical excision procedure (LEEP) (Resolved 2002) History of tonsillectomy (1977) Hx of tubal ligation (Resolved 1996) Family History Brother Age: 42 Gout Rheumatoid arthritis Brother Age: 49 Cancer of blood vessel Child Age: 22 Ulcerative colitis Father Age: 79 Bladder cancer Hypertension Gout IBS (irritable bowel syndrome) Grandfather Heart disease Grandmother Mental health problem Mother Age: 76 Breast cancer Heart disease Hypertension Sister Age: 59 Fibromyalgia Social History Smoking Status: Never smoker Smoking Status: Never smoker alcohol intake frequency: a few times a month Substance Use Type: does not use Exam Narrative Exam Narrative: GENERAL: [54] year old patient appears stated age. Well-nourished, well-developed patient, in mild distress. HEAD: Atraumatic. Normocephalic. EYES: Pupils equal round and reactive. Extraocular motions intact. No scleral icterus. No injection or drainage. ENT: Nose without bleeding, purulent drainage. Throat without erythema, tonsillar hypertrophy or exudate. Airway patent. NECK: Trachea midline. Non tender CARDIOVASCULAR: Regular rate and rhythm without murmurs, gallops, or rubs. RESPIRATORY: Clear to auscultation. Breath sounds equal bilaterally. No wheezes, rales, or rhonchi. GASTROINTESTINAL: Abdomen soft, mild suprapubic pain on exam, nondistended. EXTREMITIES: No edema or joint tenderness. BACK: Nontender without deformity or crepitance. No flank tenderness. NEURO: AOx3. SKIN: No rash or erythema of visible areas Initial Vital Signs Initial Vital Signs: Vital Signs Temperature 98.9 F 12/01/19 17:11 Pulse Rate 88 12/01/19 17:11 Respiratory Rate 16 12/01/19 17:11 Blood Pressure 176/88 H 12/01/19 17:11 Pulse Oximetry 97 12/01/19 17:11 Course Course Course Narrative: no significant findings on exam, imaging, or labs. Mild leuks on urine, but no WBCs or urinary symptoms. Orders Ordered: Discontinued Medications Sodium Chloride (Normal Saline 0.9%) 1,000 mls @ 1,000 mls/hr IV BOLUS ONE Stop: 12/01/19 19:41 Last Infusion: 12/01/19 20:45 Dose: 0 mls/hr Documented by: Admin: 12/01/19 19:18 Dose: 1,000 mls/hr Documented by: CODY Vital Signs Vital signs: Vital Signs - 8 hr 12/01/19 20:45 Pulse Rate 73 Blood Pressure 170/91 H Pulse Oximetry 98 MDM - Abdominal Pain Lab Data Result diagrams: 12/01/19 19:07 12/01/19 19:07 Labs: Lab Results 12/01/19 12/01/19 12/01/19 Range/Units 19:07 19:07 19:07 WBC 5.8 (4.5-11.0) X10^3/uL RBC 3.64 L (4.0-5.2) X10^6/uL Hgb 12.4 (12.0-16.0) g/dL Hct 36.3 (36-46) % MCV 99.6 (80-100) fL MCH 34.1 H (26-34) PG MCHC 34.2 (30-36) % RDW 12.6 (11.6-14.8) % Plt Count 224 (150-400) X10^3/uL Neut % (Auto) 57.1 (50-75) % Lymph % (Auto) 30.6 (25-40) % [place] % (Auto) 9.7 (3-14) % Eos % (Auto) 1.9 L (2-4) % Baso % (Auto) 0.7 (0-2) % Neut # (Auto) 3300 (9506-0398) /uL Lymph # (Auto) 1800 (6402-4194) /uL [place] # (Auto) 600 (0-900) /uL Eos # (Auto) 100 (0-450) /uL Baso # (Auto) 0 (0-100) /uL PT 10.4 (10.1-12.7) SECONDS INR 0.9 (0.9-1.3) APTT 31 (26.4-36.2) SECONDS Sodium 135 L (137-145) mmol/L Potassium 4.0 (3.4-5.1) mmol/L Chloride 104 (98-107) mmol/L Carbon Dioxide 25 (22-32) mmol/L BUN 20 H (7-17) mg/dL Creatinine 0.72 (0.52-1.04) mg/dL Estimated GFR > 60.0 (>60) mL/min BUN/Creatinine Ratio 27.8 H (6-22) Glucose 93 (70-100) mg/dL Calcium 9.8 (8.4-10.2) mg/dL Total Bilirubin 0.5 (0.2-1.3) mg/dL AST 34 (14-36) IU/L ALT 29 (<35) IU/L Alkaline Phosphatase 44 (38-126) U/L Total Protein 7.4 (6.3-8.2) g/dL Albumin 4.5 (3.5-5.0) g/dL Globulin 2.9 (1.7-4.1) g/dL Albumin/Globulin Ratio 1.6 (1.0-2.8) Lipase 94 (23-300) U/L Urine RBC (0-5/HPF) Urine WBC (0-5/HPF) Ur Squamous Epith Cells (0-5/HPF) Urine Bacteria (None) Ur Culture Indicated? 12/01/19 12/01/19 12/01/19 Range/Units 19:07 19:07 20:00 WBC Cancelled (4.5-11.0) X10^3/uL RBC Cancelled (4.0-5.2) X10^6/uL Hgb Cancelled (12.0-16.0) g/dL Hct Cancelled (36-46) % MCV Cancelled (80-100) fL MCH Cancelled (26-34) PG MCHC Cancelled (30-36) % RDW Cancelled (11.6-14.8) % Plt Count Cancelled (150-400) X10^3/uL Neut % (Auto) Cancelled (50-75) % Lymph % (Auto) Cancelled (25-40) % [place] % (Auto) Cancelled (3-14) % Eos % (Auto) Cancelled (2-4) % Baso % (Auto) Cancelled (0-2) % Neut # (Auto) Cancelled (7493-0950) /uL Lymph # (Auto) Cancelled (1044-6117) /uL [place] # (Auto) Cancelled (0-900) /uL Eos # (Auto) Cancelled (0-450) /uL Baso # (Auto) Cancelled (0-100) /uL PT (10.1-12.7) SECONDS INR (0.9-1.3) APTT (26.4-36.2) SECONDS Sodium Cancelled (137-145) mmol/L Potassium Cancelled (3.4-5.1) mmol/L Chloride Cancelled (98-107) mmol/L Carbon Dioxide Cancelled (22-32) mmol/L BUN Cancelled (7-17) mg/dL Creatinine Cancelled (0.52-1.04) mg/dL Estimated GFR Cancelled (>60) mL/min BUN/Creatinine Ratio Cancelled (6-22) Glucose Cancelled (70-100) mg/dL Calcium Cancelled (8.4-10.2) mg/dL Total Bilirubin (0.2-1.3) mg/dL AST (14-36) IU/L ALT (<35) IU/L Alkaline Phosphatase Cancelled (38-126) U/L Total Protein (6.3-8.2) g/dL Albumin (3.5-5.0) g/dL Globulin (1.7-4.1) g/dL Albumin/Globulin Ratio (1.0-2.8) Lipase (23-300) U/L Urine RBC 0-1/hpf (0-5/HPF) Urine WBC 1-5/hpf (0-5/HPF) Ur Squamous Epith Cells 0-1 /hpf (0-5/HPF) Urine Bacteria Many (>30) H (None) Ur Culture Indicated? Specimen cultured Point of care testing: Point of Care Testing Test Results Negative Urine Dip Bedside Urine Glucose Negative Bedside Urine Bilirubin - Negative Bedside Urine Ketone - Negative Urine Specific [place] 1.010 Bedside Urine Occult Blood - Negative Bedside Urine pH 8.0 Bedside Urine Protein - Negative Bedside Urine Urobilinogen - Negative Bedside Urine Nitrite + Positive Bedside Urine Leukocytes - Negative Esterase Imaging Data CT scan - abdomen/pelvis: Radiologist's Impression: [address] [address] [address] Scan Report Signed Patient: Paige Gu DMR#: [id number] : 1965Acct:[id number] Age/Sex: 54 / FDate of Service: 12/01/19 Loc: ED Accession Number: [id number] Procedure: CT abdomen pelvis w con Ordering Provider: Vick Henderson D.O. PROCEDURE: CT ABDOMEN PELVIS W CON INDICATIONS: pelvic pain, bloating, painful lymph nodes, sent by PCP TECHNIQUE: After the administration of intravenous contrast, 5 mm thick sections acquired from the diaphragm to the symphysis. 5 mm coronal and sagittal reformats were acquired. For radiation dose reduction, the following was used: automated exposure control, adjustment of mA and/or kV according to patient size. COMPARISON: [facility], CT, ABDOMEN/PELVIS WITH CONTRAST, 08/14/2015, 11:44. FINDINGS: Image quality: Excellent. ABDOMEN: Lung bases: Lung bases are clear. Heart size is normal. Solid organs: Liver is normal in size and mildly hypodense suggesting fatty infiltration. Gallbladder is unremarkable. Biliary system is non dilated. Pancreas enhances normally. Spleen is normal in size and enhancement. No adrenal nodules. Kidneys demonstrate normal size and enhancement, without hydronephrosis. Peritoneum and bowel: Bowel loops demonstrate normal wall thickness and caliber. The appendix is not visualized; however there is no discrete right lower quadrant fluid or fat stranding to suggest acute appendicitis. No free fluid or air. Nodes and vessels: No retroperitoneal or mesenteric adenopathy by size criteria. Aorta and inferior vena cava are normal in size. Miscellaneous: No ventral hernias. PELVIS: Genitourinary: Bladder wall thickness is normal. Miscellaneous: No inguinal hernias or adenopathy. Bones: No suspicious bony lesions. No vertebral body compression fractures. Anterior wedging at T12 is unchanged from the study dated 08/14/15. IMPRESSION: 1. No acute intra-abdominal findings. The appendix is not visualized; however there are no ancillary findings to suggest acute appendicitis. 2. No inguinal adenopathy. 3. Mild hepatic steatosis. Dictated by: Collette Murphy M.D. on 12/01/2019 at 19:43 Approved by: Collette Murphy M.D. on 12/01/2019 at 19:48 Discharge Plan Departure Patient Disposition: Home Clinical Impression: Abdominal pain Qualifiers: Abdominal location: lower abdomen, unspecified Qualified Code(s): R10.30 - Lower abdominal pain, unspecified Discharge Date/Time: 12/01/19 20:46 Instructions: DI for Abdominal Pain-Adult Activity Restrictions/Additional Instructions: *You have been diagnosed with [ acute on chronic lower abdominal pain. Your labs, exam, and CT are reassuring. ] *What to do: *Take medications as directed *Follow up with your primary care provider in 2-3 days, call for an appointment. Let them know you were seen in the Emergency Department and that we ask that you be seen in follow up. *Return to ER if you should have any new, worsening or concerning symptoms Prescriptions: No Action diazepam [Valium] 10 mg tablet 10 mg PO DAILY PRN (Reason: anxiety) Qty: 10 RF: 0 Referrals: Saray Hamm ARNP [Primary Care Provider] -
--- NOTE | 2019-12-01 18:42 | DI.CT.S_ITS ---
PROCEDURE: CT ABDOMEN PELVIS W CON INDICATIONS: pelvic pain, bloating, painful lymph nodes, sent by PCP TECHNIQUE: After the administration of intravenous contrast, 5 mm thick sections acquired from the diaphragm to the symphysis. 5 mm coronal and sagittal reformats were acquired. For radiation dose reduction, the following was used: automated exposure control, adjustment of mA and/or kV according to patient size. COMPARISON: [facility], CT, ABDOMEN/PELVIS WITH CONTRAST, 08/14/2015, 11:44. FINDINGS: Image quality: Excellent. ABDOMEN: Lung bases: Lung bases are clear. Heart size is normal. Solid organs: Liver is normal in size and mildly hypodense suggesting fatty infiltration. Gallbladder is unremarkable. Biliary system is non dilated. Pancreas enhances normally. Spleen is normal in size and enhancement. No adrenal nodules. Kidneys demonstrate normal size and enhancement, without hydronephrosis. Peritoneum and bowel: Bowel loops demonstrate normal wall thickness and caliber. The appendix is not visualized; however there is no discrete right lower quadrant fluid or fat stranding to suggest acute appendicitis. No free fluid or air. Nodes and vessels: No retroperitoneal or mesenteric adenopathy by size criteria. Aorta and inferior vena cava are normal in size. Miscellaneous: No ventral hernias. PELVIS: Genitourinary: Bladder wall thickness is normal. Miscellaneous: No inguinal hernias or adenopathy. Bones: No suspicious bony lesions. No vertebral body compression fractures. Anterior wedging at T12 is unchanged from the study dated 08/14/15. IMPRESSION: 1. No acute intra-abdominal findings. The appendix is not visualized; however there are no ancillary findings to suggest acute appendicitis. 2. No inguinal adenopathy. 3. Mild hepatic steatosis. Dictated by: Collette Murphy M.D. on 12/01/2019 at 19:43 Approved by: Collette Murphy M.D. on 12/01/2019 at 19:48
[2019-12-01 19:18] LABS: Add Manual Diff / Slide Review NO; Basophils Absolute Auto 0 /uL (0-100); Basophils Percent Auto 0.7 % (0-2); Eosinophils Absolute Auto 100 /uL (0-450); Eosinophils Percent Auto 1.9 % (2-4); Hematocrit 36.3 % (36-46); Hemoglobin 12.4 g/dL (12.0-16.0); Lymphocytes Absolute Auto 1800 /uL (1100-4500); Lymphocytes Percent Auto 30.6 % (25-40); Mean Corpuscular HGB Conc 34.2 % (30-36); Mean Corpuscular Hemoglobin 34.1 PG (26-34); Mean Corpuscular Volume 99.6 fL (80-100); Monocytes Absolute Auto 600 /uL (0-900); Monocytes Percent Auto 9.7 % (3-14); Neutrophils Absolute Auto 3300 /uL (1500-7000); Neutrophils Percent Auto 57.1 % (50-75); Platelet Count 224 X10^3/uL (150-400); Red Blood Cell Count 3.64 X10^6/uL (4.0-5.2); Red Cell Distribution Width 12.6 % (11.6-14.8); White Blood Cell Count 5.8 X10^3/uL (4.5-11.0)
[2019-12-01] MEDS: SODIUM CHLORIDE 0.9% 1,000 ML 1000 ML IV (19:18)
[2019-12-01 19:25] LABS: INR 0.9 (0.9-1.3); Prothrombin Time 10.4 SECONDS (10.1-12.7)
[2019-12-01 19:28] LABS: PTT Partial Thromboplastin Tim 31 SECONDS (26.4-36.2)
[2019-12-01 19:30] LABS: Alanine Aminotransferase 29 IU/L (<35); Albumin 4.5 g/dL (3.5-5.0); Albumin Globulin Ratio 1.6 (1.0-2.8); Alkaline Phosphatase 44 U/L (38-126); Aspartate Aminotransferase 34 IU/L (14-36); BUN Creatinine Ratio 27.8 (6-22); Bilirubin Total 0.5 mg/dL (0.2-1.3); Blood Urea Nitrogen 20 mg/dL (7-17); Calcium 9.8 mg/dL (8.4-10.2); Carbon Dioxide 25 mmol/L (22-32); Chloride 104 mmol/L (98-107); Estimated Glomerular Filt Rate > 60.0 mL/min (>60); Globulin 2.9 g/dL (1.7-4.1); Glucose 93 mg/dL (70-100); HEMOLYSIS < 15 (0-50); Lipase 94 U/L (23-300); Sodium 135 mmol/L (137-145); Total Protein 7.4 g/dL (6.3-8.2)
[2019-12-01 20:44] LABS: Bacteria Urine Many (>30); Culture Indicated Urine Specimen Cultured; RBC Urine 0-1/HPF (0-5/HPF); Squamous Epithelial Cell Urine 0-1 /HPF (0-5/HPF); WBC Urine 1-5/HPF (0-5/HPF)
[2019-12-01 20:45] VITALS: BP 170/91; PULSE 73; O2SAT 98
== END 2019-12-01 20:46 | disposition home or self-care (01) ==
PROVIDERS: Emergency Medicine; Emergency Provider Emergency Medicine; PCP Nurse Practitioner Family
DX: R10.30 Lower abdominal pain, unspecified (principal); R10.2 Pelvic and perineal pain
CPT/HCPCS: 36415; 74177; 80053; 81003; 81015; 81025; 83690; 85025; 85610; 85730; 87077; 87086; 87186; 96360; 99284

== ENCOUNTER → 2019-12-17 11:27 | Outpatient (CLI) | payer OTHER, MEDICAID, SELFPAY ==
[2019-12-18 08:10] LABS: COVID19 Sendout Not Detected (Not Detect)
== END ==
PROVIDERS: PCP Nurse Practitioner Family; Visit Provider Nurse Practitioner
DX: Z01.812 Encounter for preprocedural laboratory examination (principal)
CPT/HCPCS: 87635

== ENCOUNTER 2019-12-20 12:39 | Day surgery (SDC) | payer OTHER, MEDICAID, SELFPAY ==
[2019-12-13 15:25] VITALS: BMI 29.0
[2019-12-20] VITALS (9 sets, daily range): BP systolic 139–163; BP diastolic 82–99; PULSE 68–81; RESP 12–19; TEMP 36.1–36.7; O2SAT 93–100; BMI 28.7
--- NOTE | 2019-12-20 | PATH_ITS ---
[facility] Accession Number: [id number] . 01 Material submitted: . lymph node - RIGHT GROIN LYMPH NODE , IN FORMALIN . 01 Clinical history: . LYMPHADENOPATHY, RIGHT GROIN- RULE OUT LYMPHOMA, METS . 01 Diagnosis: Right Groin Lymph Node, Excision: Benign, reactive lymph node, see microscopic description. Negative for hematolymphoid malignancy and carcinoma. [facility] 12/27/2019 161 Local . 01 Comment: As part of ongoing quality assurance manager, this case is also reviewed by hematopathologist, Dr. Adelaide Dunne, who agrees with the interpretation. . 01 Electronically signed: . Yong Gentile MD, Pathologist NPI- [id number] . 01 Gross description: . Specimen is received in formalin, labeled with patient identification and right groin lymph node. It consists of two yellow-springer to light brown irregular soft tissue pieces measuring 2.1 x 2.0 x 0.8 cm in aggregate. There are two lymph nodes ranging from 1.5 to 2.0 cm in greatest dimension. Sectioning reveals homogeneously yellow-springer and smooth cut surfaces. The entire lymph nodes are submitted in two cassettes. . Summary of sections: A1 - entire sectioned lymph node #1, four pieces. A2 - the entire sectioned lymph node #2, six pieces. ([id number]) (PK:[id number]) /V 12/27/20191611 Local . 01 Microscopic: . Microscopic examination of the lymph node reveals reactive follicular hyperplasia. The shawn architecture is largely maintained with areas of fibrosis (often seen in inguinal lymph nodes). There is normal distribution of B and T lymphocytes (see below immunohistochemistry) without aberrant antigen expression and without light chain restriction. Plasma cells appear focally increased within the areas of fibrosis, favor a reactive process (polyclonal plasma cells, by kappa and lambda light chain immunostains, see below immunohistochemistry). . To better evaluate the lymphocytes, a panel of immunostains is performed with the following results: . CD3 - T lymphocytes positive. CD5 - T lymphocytes positive (negative for aberrant B lymphocyte co-expression). CD20 and PAX-5 - B lymphocytes positive. CD10 and BCL6 - B lymphocytes positive within the follicles. CD23 - follicular dendritic cells positive within the follicles. Ki-67 - germinal centers positive. BCL2 - T lymphocytes positive (germinal centers negative). Cyclin-D1 - B lymphocytes negative. Fielding light chain immunostain - no restriction on the B lymphocytes and subset of plasma cells positive. Lambda light chain immunostain - no restriction on the B lymphocytes and subset of plasma cells positive. CD15 - granulocytes and histiocytes positive; negative for Hodgkin cells. CD30 - activated lymphocytes positive; negative for Hodgkin cells. . In summary, the morphology and immunohistochemistry support a benign lymph node with reactive changes, including reactive follicular hyperplasia, fibrosis and reactive plasmacytosis. . Concurrent flow cytometry, performed on the lymph node (see report [id number]) showed elevated CD4:CD8 ratio with an otherwise normal immunophenotype on the T lymphocytes, and no evidence of B cell nonHodgkin lymphoma. . Clinical correlation and correlation with imaging studies is recommended. . * This test was developed and its performance characteristics determined by [employer]. It has not been cleared or approved by the U.S. Food and Drug Administration. The FDA has determined that such clearance or approval is not necessary. This test is used for clinical purposes. It should not be regarded as investigational or for research. . 01 Pathologist provided ICD-10: R59.0 . 01 CPT . 264766, L24510, X67652 Performed at: 01 [facility] [address], [place], [place] [id number] MD Jacky Thao MD Phone: [phone]
[2019-12-20] MEDS: LACTATED RINGERS 1,000 ML 100 ML IV (13:27)
--- NOTE | 2019-12-20 14:08 | PM.PREOP ---
Pre-operative Note COVID-19 COVID-19 status: Negative Result date/Date tested (Pos, Neg/Pending): 12/17/19 Interval Note History & Physical reviewed/Exam performed by Physician: Yes Changes to H&P: No
[2019-12-20] MEDS: CEFAZOLIN 2 GM/100 ML FROZ.PIGGY IV (14:15)
--- NOTE | 2019-12-20 14:36 | SUR.OPER ---
Supine on padded OR bed, head on pillow, arms secured on padded arm boards at <90 degrees abduction, legs uncrossed, safety belt at thigh, tape over blanket over lower legs.
[2019-12-20] MEDS: BUPIVACAINE 0.25% W/ EPI 30 ML VIAL INJ (14:41)
--- NOTE | 2019-12-20 15:20 | PM.OP.1 ---
Operative Date/Time/Diagnoses Date of procedure: 12/20/19 Time of procedure: 15:21 Pre-op diagnosis: right groin lymphadenopathy Post-op diagnosis: other (Enlarged right groin lymph node) Procedure & Clinicians Procedure: excisional biopsy of deep right inguinal lymph node Same procedure as scheduled: Yes Indications: enlarged painful right groin mass, consistent with enlarged lymph node on US Surgeon: Theresa Tavera Anesthesia Type: General Operative Notes Findings: 3cm x 1cm x 2cm right inguinal lymph node Specimen(s): other (lymph node sent for permanent and flow cytometry) Estimated Blood Loss (mL): 1 Blood products transfused: none Procedure in detail: The patient was brought into the OR, placed supine on the OR table, and appropriate preoperative antibiotics were given. Sequential compression devices were placed on both legs and turned on. General anesthesia was induced and the patient was intubated with an LMA by the anesthesiologist. The right groin was prepped and draped in sterile fashion for inguinal incision. A surgical time out was conducted. Local anesthetic was infiltrated into the skin and a 15 blade was used to make an oblique 10cm incision overlying the palpable mass in the right groin. Dissection was carried down to through the dermis and subcutaneous fat. A large palpable lymph node was identified, and dissected out carefully from the surrounding structures. I tied off several vessels and lymphatic channels attached to the lymph node. Once lymph node was finally dissected free was passed off the table. I cut into 4 pieces, and put each into an appropriate container for pathology and flow cytometry. The subcutaneous tissue was then closed in layers using 3 0 Vicryl suture. The skin was then closed with a running subcuticular 4 Monocryl suture, and sealed with Dermabond. The patient was awakened from anesthesia and extubated. She tolerated the procedure well. Needle, sponge and instrument counts were correct x 2. The patient was transferred to PACU in stable condition. Complications: none Post-operative Condition: stable Disposition: PACU
[2019-12-20] MEDS: fentaNYL 100 MCG/2 ML INJ IV (15:38)
[2019-12-20] MEDS: HYDROCODONE/ACET 5/325 TABLET 1 TAB PO (16:08)
== END 2019-12-20 16:31 | disposition home or self-care (01) ==
PROVIDERS: PCP Nurse Practitioner Family; Referring Provider Surgery; Visit Provider Surgery
PROC: (CPT 38531; principal; 2019-12-20 13:45)
DX: R59.0 Localized enlarged lymph nodes (principal); F41.9 Anxiety disorder, unspecified
CPT/HCPCS: 38531; J0690; J1100; J2250; J2405; J2704; J3010

== ENCOUNTER → 2020-08-24 17:59 | Outpatient (CLI) | payer OTHER, MEDICAID, SELFPAY ==
--- NOTE | 2020-08-24 18:03 | DI.RAD.S_ITS ---
PROCEDURE: XR ANKLE LT MIN 3V INDICATIONS: contusion w/ hematoma medial ankle x5 wks r/o fx TECHNIQUE: 3 views of the ankle were acquired. COMPARISON: None. FINDINGS: Bones: No fractures or dislocations. Ankle mortise is normally aligned. No suspicious bony lesions. Soft tissues: No tibiotalar joint effusion. Achilles tendon appears normal. IMPRESSION: No visualized acute fracture or dislocation. However, if clinical concern and/or pain persist, short interval imaging followup in 7-10 days is recommended, as occult injury cannot be definitively excluded. Dictated by: Lisa Dupree M.D. on 08/24/2020 at 18:55 Approved by: Lisa Dupree M.D. on 08/24/2020 at 18:56
== END ==
PROVIDERS: PCP Nurse Practitioner Family; Referring Provider Nurse Practitioner Family; Visit Provider Nurse Practitioner Family
DX: S90.02XA Contusion of left ankle, initial encounter (principal); X58.XXXA Exposure to other specified factors, initial encounter
CPT/HCPCS: 73610

== ENCOUNTER → 2020-10-11 15:29 | Outpatient (CLI) | payer OTHER, MEDICAID, SELFPAY ==
[2020-10-11 16:14] LABS: COVID19 -Nasal RAPID Negative (Negative)
== END ==
PROVIDERS: PCP Nurse Practitioner Family; Visit Provider Obstetrics & Gynecology
DX: Z01.812 Encounter for preprocedural laboratory examination (principal); Z20.822 Contact with and (suspected) exposure to COVID-19
CPT/HCPCS: 87635

== ENCOUNTER 2020-10-12 07:58 | Day surgery (SDC) | payer OTHER, MEDICAID, SELFPAY ==
[2020-10-10 12:43] VITALS: BMI 30.2
[2020-10-12] VITALS (14 sets, daily range): BP systolic 104–146; BP diastolic 56–84; PULSE 60–73; RESP 12–18; TEMP 36.6–37.1; O2SAT 91–98; BMI 29.5
[2020-10-12] MEDS: GABAPENTIN 300 MG CAPSULE PO (08:21)
[2020-10-12] MEDS: SCOPOLAMINE 1 PATCH TOP (08:21)
[2020-10-12] MEDS: ACETAMINOPHEN 325 MG TABLET 975 MG PO (08:21)
[2020-10-12] MEDS: LACTATED RINGERS 1,000 ML 42 ML IV (08:21)
--- NOTE | 2020-10-12 08:54 | PM.PREOP ---
Pre-operative Note COVID-19 COVID-19 status: Negative Result date/Date tested (Pos, Neg/Pending): 10/11/20 Interval Note History & Physical reviewed/Exam performed by Physician: Yes Changes to H&P: No
--- NOTE | 2020-10-12 09:13 | SUR.OPER ---
Lithotomy on padded OR bed, head on pillow, arms secured on padded arm boards at <90 degrees abduction. Legs secured in padded yellow fins stirrups.
--- NOTE | 2020-10-12 15:53 | SUR.OPER ---
Lithotomy on padded OR bed, head on pillow, arms secured on padded arm boards at <90 degrees abduction. Legs secured in padded yellow fins stirrups.
[2020-10-12] MEDS: fentaNYL 100 MCG/2 ML INJ IV ×2 (16:28→16:34)
[2020-10-12] MEDS: ONDANSETRON 4 MG/2 ML INJ IV (16:31)
--- NOTE | 2020-10-12 17:18 | PM.OP.1 ---
Operative Date/Time/Diagnoses Date of procedure: 10/12/20 Time of procedure: 15:30 Pre-op diagnosis: Abnormal uterine bleeding Post-op diagnosis: same Procedure & Clinicians Procedure: IUD removal, endometrial ablation Same procedure as scheduled: Yes Indications: Desire for more definitive management of abnormal uterine bleeding Surgeon: Radha Greenberg Air Antisubmarine Officer: Bonnie Mcallister Anesthesia Type: Sedation Operative Notes Findings: Normal vulva, vagina. Uterus measuring 9.5 cm by sound. Uterus mildly anteverted. Specimen(s): none sent Estimated Blood Loss (mL): 0 Procedure in detail: After informed consent was obtained, the patient was transferred to the operating room. She was placed under IV sedation and prepped and draped in the usual sterile fashion in the dorsal lithotomy position, including straight catheterization of the bladder. A speculum was placed in the patient's vagina, the cervix easily visualized. IUD strings were visible, grasped with a ring forceps, and the IUD was removed with gentle traction. A single-tooth tenaculum was used to grasp the anterior lip of the cervix, and the cervix was measured with the sound and the uterus then measured with the sound for a cavity length of 5 cm. The cervix was dilated to 8 [place] with serial Hegar dilators. The NovaSure device was gently entered the fundus, withdrawn, and the device deployed and rotated to properly seat. The cavity width was noted to be 4.5 cm. A cavity assessment was performed and was passed, the NovaSure device was used to ablate the endometrium. Power was 124 w, time was 105 seconds. The patient tolerated the procedure well. The NovaSure device was removed from the uterus, the speculum and tenaculum removed, and the patient transferred to PACU. IVF 600ccs. Complications: none Post-operative Condition: stable Disposition: PACU Plan for aftercare: Routine postoperative care. Precautions discussed with patient and spouse prior to and after procedure.
== END 2020-10-12 17:12 | disposition home or self-care (01) ==
PROVIDERS: PCP Nurse Practitioner Family; Referring Provider Obstetrics & Gynecology; Visit Provider Obstetrics & Gynecology
PROC: 0U5B8ZZ Destruction of Endometrium, Via Natural or Artificial Opening Endoscopic (ICD-10-PCS; CPT 58563; principal; 2020-10-12 09:15)
DX: N93.9 Abnormal uterine and vaginal bleeding, unspecified (principal); Z30.432 Encounter for removal of intrauterine contraceptive device; F41.9 Anxiety disorder, unspecified; E66.9 Obesity, unspecified; Z68.30 Body mass index [BMI] 30.0-30.9, adult
CPT/HCPCS: 58353; 58301; 81025; 82962; J1885; J2405; J2704; J3010

== ENCOUNTER → 2020-11-09 10:05 | Outpatient (CLI) | payer OTHER, MEDICAID, SELFPAY | PROVIDERS: PCP Nurse Practitioner Family; Referring Provider Obstetrics & Gynecology; Visit Provider Obstetrics & Gynecology | DX: N92.0 Excessive and frequent menstruation with regular cycle (principal); N95.1 Menopausal and female climacteric states | CPT/HCPCS: 36415; 83001 ==

== ENCOUNTER → 2020-11-20 08:30 | Outpatient (CLI) | payer OTHER, MEDICAID, SELFPAY ==
[2020-11-20 11:24] LABS: Cortisol AM (Before 10AM) 21.6 ug/dL (4.46-22.7)
== END ==
PROVIDERS: PCP Nurse Practitioner Family; Referring Provider Obstetrics & Gynecology; Visit Provider Obstetrics & Gynecology
DX: N92.0 Excessive and frequent menstruation with regular cycle (principal); N95.1 Menopausal and female climacteric states
CPT/HCPCS: 36415; 82533

== ENCOUNTER → 2021-01-11 09:36 | Outpatient (CLI) | payer OTHER, MEDICAID, SELFPAY ==
[2021-01-11 10:47] LABS: Add Manual Diff / Slide Review NO; Basophils Absolute Auto 0 /uL (0-100); Basophils Percent Auto 0.5 % (0-2); Eosinophils Absolute Auto 100 /uL (0-450); Eosinophils Percent Auto 1.5 % (2-4); Hematocrit 42.2 % (36-46); Hemoglobin 13.8 g/dL (12.0-16.0); Lymphocytes Absolute Auto 1300 /uL (1100-4500); Lymphocytes Percent Auto 23.3 % (25-40); Mean Corpuscular HGB Conc 32.6 % (30-36); Mean Corpuscular Volume 101.2 fL (80-100); Monocytes Absolute Auto 600 /uL (0-900); Monocytes Percent Auto 10.7 % (3-14); Neutrophils Absolute Auto 3500 /uL (1500-7000); Platelet Count 232 X10^3/uL (150-400); Red Blood Cell Count 4.17 X10^6/uL (4.0-5.2); Red Cell Distribution Width 14.2 % (11.6-14.8); White Blood Cell Count 5.5 X10^3/uL (4.5-11.0)
[2021-01-11 10:51] LABS: Alanine Aminotransferase 40 IU/L (<35); Albumin 4.7 g/dL (3.5-5.0); Albumin Globulin Ratio 1.4 (1.0-2.8); Alkaline Phosphatase 46 U/L (38-126); Aspartate Aminotransferase 45 IU/L (14-36); BUN Creatinine Ratio 29.9 (6-22); Bilirubin Total 0.5 mg/dL (0.2-1.3); Blood Urea Nitrogen 20 mg/dL (7-17); Calcium 10.3 mg/dL (8.4-10.2); Carbon Dioxide 23 mmol/L (22-32); Chloride 106 mmol/L (98-107); Cholesterol 260 mg/dL (140-199); Estimated Glomerular Filt Rate > 60.0 mL/min (>60); Globulin 3.4 g/dL (1.7-4.1); Glucose 109 mg/dL (70-100); HDL Cholesterol 67 mg/dL (40-60); HEMOLYSIS < 15 (0-50); LDL Cholesterol Calculated 168 mg/dL (<100); Potassium 4.7 mmol/L (3.4-5.1); Sodium 138 mmol/L (137-145); Total Protein 8.1 g/dL (6.3-8.2); Triglycerides 127 mg/dL (35-150)
[2021-01-11 11:07] LABS: Vitamin D 25 Hydroxy (D3) 63.8 ng/mL (30.0-100.0)
[2021-01-11 11:56] LABS: Folate 7.4 ng/mL (2.76-20.0); Vitamin B12 591 pg/mL (239-931)
[2021-01-11 11:57] LABS: TSH w/ Reflex to FT4 1.14 uIU/mL (0.47-4.68)
[2021-01-12 11:21] LABS: Calcium 9.8 mg/dL (8.7-10.2); Insulin Level Total 20.5 uIU/mL (2.6-24.9); Parathyroid Hormone, Intact 57 pg/mL (15-65); SARS CoV19 IgG Negative (Negative)
== END ==
PROVIDERS: PCP Registered Nurse Diabetes Educator; Referring Provider Registered Nurse Diabetes Educator; Visit Provider Registered Nurse Diabetes Educator
DX: D75.89 Other specified diseases of blood and blood-forming organs (principal); E78.5 Hyperlipidemia, unspecified; E83.52 Hypercalcemia; R74.8 Abnormal levels of other serum enzymes; Z68.29 Body mass index [BMI] 29.0-29.9, adult; Z20.822 Contact with and (suspected) exposure to COVID-19
CPT/HCPCS: 36415; 80053; 80061; 82306; 82310; 82607; 82746; 83036; 83525; 83970; 84443; 85025; 86769

== ENCOUNTER → 2021-02-22 09:03 | Outpatient (CLI) | payer OTHER, MEDICAID, SELFPAY ==
--- NOTE | 2021-02-22 09:04 | DI.US.S_ITS ---
PROCEDURE: US ABDOMEN LIMITED INDICATIONS: ELEVATED LIVER ENZYMES TECHNIQUE: Real-time focused scanning was performed of the abdomen, with image documentation. COMPARISON: [facility], [place], US ABDOMEN COMPLETE, 12/27/2018, 14:44. FINDINGS: The liver is normal in size and demonstrates no focal lesions. The main portal vein demonstrates normal size and demonstrates normal appearing, hepatopetal flow. No findings of gallstones or sludge are seen. The gallbladder wall is not thickened, measuring 3 mm or less. No specific pericholecystic fluid is seen. The sonographic Herrera sign is negative. There is no biliary dilatation, the common bile duct measures 4 mm. No significant pancreatic abnormality is seen on these images. IMPRESSION: Normal appearing liver by ultrasound. The gallbladder demonstrates a normal sonographic appearance. No biliary dilatation is seen. Dictated by: Andrés Rothman M.D. on 02/22/2021 at 8:42 Approved by: Andrés Rothman M.D. on 02/22/2021 at 8:43
== END ==
PROVIDERS: PCP Registered Nurse Diabetes Educator; Referring Provider Registered Nurse Diabetes Educator; Visit Provider Registered Nurse Diabetes Educator
DX: D75.89 Other specified diseases of blood and blood-forming organs (principal); R74.8 Abnormal levels of other serum enzymes
CPT/HCPCS: 76705

== ENCOUNTER → 2021-04-22 16:53 | Outpatient (CLI) | payer OTHER, MEDICAID, SELFPAY ==
--- NOTE | 2021-04-22 | DI.MG.S_ITS ---
BILATERAL DIGITAL SCREENING MAMMOGRAM 3D/2D WITH CAD: 04/22/2021 CLINICAL: Routine screening. Family history of breast cancer. Comparison is made to exams dated: 12/27/2018 mammogram, 01/15/2018 mammogram, and 12/14/2017 mammogram - [facility]. There are scattered fibroglandular elements in both breasts. Current study was also evaluated with a Computer Aided Detection (CAD) system. There is an oval equal density focal asymmetry with a circumscribed margin in the right breast at 8 o'clock anterior depth. No other significant masses, calcifications, or other findings are seen in either breast. IMPRESSION: INCOMPLETE: NEEDS ADDITIONAL IMAGING EVALUATION The oval equal density focal asymmetry in the right breast is indeterminate. Mediolateral and spot compression views as well as additional views with possible ultrasound are recommended. This exam was interpreted at Station ID: [id number]. NOTE: For mammograms, a report in lay terms will be sent to the patient. Approximately 15% of breast malignancies will not be visualized mammographically. In the management of a palpable breast mass, a negative mammogram must not discourage biopsy of a clinically suspicious lesion. Electronically Signed By: Jacky hidalgo/oli:04/23/2021 08:30:18 letter sent: Additional Imaging Needed ACR BI-RADS Category 0: Incomplete 3340F
== END ==
PROVIDERS: PCP Registered Nurse Diabetes Educator; Referring Provider Registered Nurse Diabetes Educator; Visit Provider Registered Nurse Diabetes Educator
DX: Z12.31 Encounter for screening mammogram for malignant neoplasm of breast (principal); Z80.3 Family history of malignant neoplasm of breast
CPT/HCPCS: 77063; 77067

== ENCOUNTER → 2021-05-25 11:12 | Outpatient (CLI) | payer OTHER, MEDICAID, SELFPAY ==
[2021-05-25 12:51] LABS: Ferritin 111 ng/mL (11-264)
[2021-05-27 00:40] LABS: Hepatitis B Core AB w/Reflex Negative (Negative)
[2021-05-27 18:50] LABS: Hepatitis B Surface Antigen NEGATIVE s/c (NEGATIVE)
[2021-05-27 18:53] LABS: Hep C Virus Ab w/Reflex Quant NEGATIVE s/c (NEGATIVE)
[2021-05-28 08:11] LABS: Alanine Aminotransferase 27 IU/L (<35); Albumin 4.8 g/dL (3.5-5.0); Albumin Globulin Ratio 1.5 (1.0-2.8); Alkaline Phosphatase 50 U/L (38-126); Aspartate Aminotransferase 41 IU/L (14-36); Bilirubin Total 0.8 mg/dL (0.2-1.3); Bilirubin Unconjugated 0.6 mg/dL (0.0-1.1); Globulin 3.2 g/dL (1.7-4.1); HEMOLYSIS 33 (0-50)
== END ==
PROVIDERS: PCP Registered Nurse Diabetes Educator; Referring Provider Registered Nurse Diabetes Educator; Visit Provider Registered Nurse Diabetes Educator
DX: D75.89 Other specified diseases of blood and blood-forming organs (principal); R74.8 Abnormal levels of other serum enzymes
CPT/HCPCS: 36415; 80076; 82728; 86704; 86803; 87340

== ENCOUNTER → 2021-05-28 08:58 | Outpatient (CLI) | payer OTHER, MEDICAID, SELFPAY ==
--- NOTE | 2021-05-28 | DI.US.S_ITS ---
LIMITED ULTRASOUND OF RIGHT BREAST: 05/28/2021 CLINICAL: Patient returns today to evaluate a focal asymmetry in the right breast. Comparison is made to exams dated: 05/28/2021 mammogram, 04/22/2021 mammogram, and 12/27/2018 mammogram - [facility]. Real-time ultrasound of the right breast 9 o'clock region was performed. Blackman scale images of the real-time examination were reviewed. There is an area of fibrocystic tissue in the right breast at 9 o'clock anterior depth. This correlates with mammography findings and probably accounts for the focal round 0.3 cm asymmetry seen on mammogram. Color flow imaging demonstrates that there is no vascularity present. IMPRESSION: PROBABLY BENIGN The area of fibrocystic tissue in the right breast probably accounts for the mammographic finding, and is probably benign. No other abnormalities were seen sonographically. A follow-up right mammogram and an ultrasound in 6 months is recommended to demonstrate stability. Findings and recommendations were conveyed to the patient at time of exam. This exam was interpreted at Station ID: [id number]. Electronically Signed By: Flores resendez/:05/28/2021 10:05:53 letter sent: Followup Recommended Ultrasound BI-RADS: 3 Probably benign
--- NOTE | 2021-05-28 | DI.MG.S_ITS ---
UNILATERAL RIGHT DIGITAL DIAGNOSTIC MAMMOGRAM 3D/2D WITH ADDITIONAL VIEWS: 05/28/2021 CLINICAL: Additional evaluation requested from prior study. Comparison is made to exams dated: 04/22/2021 mammogram, 12/27/2018 mammogram, and 01/15/2018 mammogram - [facility]. There are scattered fibroglandular elements in right breast. There is a 3 mm oval low density focal asymmetry with a circumscribed margin in the right breast at 9 o'clock anterior depth. This is seen in additional views. No other significant masses or calcifications are seen in the breast. IMPRESSION: INCOMPLETE: NEEDS ADDITIONAL IMAGING EVALUATION The 3 mm oval low density focal asymmetry in the right breast is indeterminate. An ultrasound is recommended. This was performed immediately following this exam. This exam was interpreted at Station ID: [id number]. NOTE: For mammograms, a report in lay terms will be sent to the patient. Approximately 15% of breast malignancies will not be visualized mammographically. In the management of a palpable breast mass, a negative mammogram must not discourage biopsy of a clinically suspicious lesion. Electronically Signed By: Flores resendez/:05/28/2021 09:47:41 ACR BI-RADS Category 0: Incomplete 3340F
== END ==
PROVIDERS: PCP Registered Nurse Diabetes Educator; Referring Provider Registered Nurse Diabetes Educator; Visit Provider Registered Nurse Diabetes Educator
DX: R92.8 Other abnormal and inconclusive findings on diagnostic imaging of breast (principal); N64.89 Other specified disorders of breast
CPT/HCPCS: 76642; 77065; G0279

== ENCOUNTER → 2021-06-28 09:16 | Outpatient (CLI) | payer OTHER, MEDICAID, SELFPAY ==
[2021-06-28 11:36] LABS: COVID19 -Nasal RAPID Negative (Negative)
== END ==
PROVIDERS: PCP Registered Nurse Diabetes Educator; Visit Provider Surgery
DX: Z01.812 Encounter for preprocedural laboratory examination (principal); Z20.822 Contact with and (suspected) exposure to COVID-19
CPT/HCPCS: 87635; C9803

== ENCOUNTER 2021-07-01 08:18 | Day surgery (SDC) | payer OTHER, MEDICAID, SELFPAY ==
[2021-07-01] VITALS (10 sets, daily range): BP systolic 84–118; BP diastolic 54–77; PULSE 60–75; RESP 10–19; TEMP 36.4–37; O2SAT 96–100; BMI 28.3
--- NOTE | 2021-07-01 09:16 | PM.HP.1 ---
History of Present Illness History of Present Illness Date Patient Seen: 07/01/21 Time Patient Seen: 09:16 Chief complaint: SDC Narrative: The patient presents for colorectal sreening. They have never had any previous examination for such. No personal or family history of colon cancer. On further history denies any recent gastrointestinal symptoms. No nausea, vomiting, abdominal pain, loss of appetite, unexplained weight loss, change in bowel habits, diarrhea, constipation, melena, hematochezia, or bright red blood per rectum. Patient History Medical History Abnormal pelvic ultrasound Adjustment disorder with anxiety Anxiety Arthritis Cervical cancer (2002) Chickenpox (1976) Chronic low back pain (~07/2017) Eczema Family history of hypothyroidism History of recurrent ear infection (1974) HTN (hypertension) Kidney disease (1979) Left ankle injury Muscle twitching Sinus drainage Walking pneumonia Surgical History History of loop electrical excision procedure (LEEP) (2002) History of tonsillectomy (1977) Hx of lymph node biopsy (12/20/19) Hx of tubal ligation (1996) Family & Social History Family History Brother Age: 44 Gout Rheumatoid arthritis Brother Age: 51 Cancer of blood vessel Child Age: 24 Ulcerative colitis Father Age: 81 Bladder cancer Hypertension Gout IBS (irritable bowel syndrome) Grandfather Heart disease Grandmother Mental health problem Mother Age: 78 Breast cancer Heart disease Hypertension Sister Age: 61 Fibromyalgia Social History: household members spouse Tobacco & Substance use: Smoking Status Never smoker alcohol intake current alcohol intake frequency a few times a week Substance Use Type does not use Meds Home Medications and Allergies Allergies Allergy/AdvReac Type Severity Reaction Status Date / Time codeine [CODEINE] Allergy Unknown jittery,hea Verified 07/01/21 08:43 dache Sulfa (Sulfonamide Allergy Unknown Rash Verified 07/01/21 08:43 Antibiotics) pain killers Allergy Unknown severe Uncoded 05/28/21 13:28 headache Exam Vital Signs (past 8 hours): - 07/01/21 09:08 Temperature 98.6 F Pulse Rate 73 Respiratory Rate 16 Blood Pressure 118/76 Pulse Oximetry 100 Oxygen Delivery Method Room Air Narrative Exam Narrative: GENERAL: Adult woman in no apparent distress HEENT: No scleral icterus CV: Regular rate, no peripheral edema LUNGS: No increased work of breathing. Patient speaks in full sentences without oxygen support. ABDOMEN: Soft, non-tender, non-distended NEURO: Nonfocal, normal strength throughout SKIN: Warm and dry Assessment & Plan Assessment and plan (1) Screening for colon cancer: Status: Acute Assessment & Plan narrative: The patient requires colorectal screening and colonoscopy is recommended. Technical details were discussed. Risks, benefits, alternatives explained. Risks including but not limited to myocardial infarction, aspiration, bleeding, pain, missed lesion, incomplete examination, need for further radiographic studies, colonic perforation, and need for major abdominal surgery were discussed. All questions were answered to their satisfaction, and they are in agreement with this plan. Time Spent With Patient Critical Care time: I spent a total of [] minutes of critical care time on this patient's care today; this time is exclusive of procedural time.
[2021-07-01] MEDS: LACTATED RINGERS 1,000 ML 42 ML IV (09:18)
[2021-07-01] MEDS: fentaNYL 250 MCG/5 ML INJ IV (09:36)
[2021-07-01] MEDS: MIDAZOLAM 5 MG/5 ML VIAL IV (09:44)
--- NOTE | 2021-07-01 09:54 | PM.OP.COLON ---
Operative Date/Time/Diagnoses Date of procedure: 07/01/21 Time of procedure: 09:54 Pre-op diagnosis: Screening colonoscopy Post-op diagnosis: same Procedure & Clinicians Study performed: Colonoscopy Same procedure as scheduled: Yes Indications: Screening Surgeon: Ben Mcgarry Procedure Notes Procedure in detail: Medications: Conscious sedation using 6 mg IV midazolam and 150 mcg IV of fentanyl The history and physical was performed/updated and the patient is ASA class is 2. The procedure was discussed in detail with the patient. Potential risks complications including infection, bleeding, missed diagnosis, perforation, need for surgery, and were explained. Their questions were answered and informed consent was obtained. Patient was brought to the procedure room and placed standard monitoring equipment. The patient's vital signs were monitored continuously throughout the entire procedure. Prior to starting time-out was performed. The patient was placed in the left lateral recumbent position. Procedural sedation was administered. Examination began with a thorough inspection of the perianal area there was no evidence of fissures, fistulae, external hemorrhoids or cutaneous malignancy. The colonoscopy scope was then placed into the anal canal and was advanced to the cecum, which was identified by the ileocecal valve, the appendiceal orifice and the confluence of the taenia. The scope was then slowly withdrawn examining colon thoroughly in all directions, irrigating it of any residual stool. FINDINGS 1. No masses or polyps 2. Sigmoid diverticulosis The patient tolerated the procedure well. They will be discharged once criteria are met. The prep was of good/excellent quality. The withdrawl time was 6 minutes. The sedation time was 22minutes. Specimen(s): none sent Complications: none Impression: Normal colonoscopy Post-procedure Recommendations: Colonoscopy in 10 years and High fiber diet Disposition: same day surgery
== END 2021-07-01 11:01 | disposition home or self-care (01) ==
PROVIDERS: PCP Registered Nurse Diabetes Educator; Referring Provider Surgery; Visit Provider Surgery
PROC: 0DJD8ZZ Inspection of Lower Intestinal Tract, Via Natural or Artificial Opening Endoscopic (ICD-10-PCS; CPT 45378; principal; 2021-07-01 09:15)
DX: Z12.11 Encounter for screening for malignant neoplasm of colon (principal); I10 Essential (primary) hypertension; K57.30 Diverticulosis of large intestine without perforation or abscess without bleeding
CPT/HCPCS: 45378; 99152; J2250; J3010

== ENCOUNTER → 2021-07-04 10:50 | Outpatient (CLI) | payer OTHER, MEDICAID, SELFPAY ==
[2021-07-04 11:47] LABS: Add Manual Diff / Slide Review NO; Basophils Absolute Auto 0 /uL (0-100); Basophils Percent Auto 0.7 % (0-2); Eosinophils Absolute Auto 100 /uL (0-450); Eosinophils Percent Auto 2.5 % (2-4); Hematocrit 39.7 % (36-46); Hemoglobin 13.7 g/dL (12.0-16.0); Lymphocytes Absolute Auto 1600 /uL (1100-4500); Lymphocytes Percent Auto 37.4 % (25-40); Mean Corpuscular HGB Conc 34.4 % (30-36); Mean Corpuscular Volume 98.9 fL (80-100); Monocytes Absolute Auto 400 /uL (0-900); Monocytes Percent Auto 9.2 % (3-14); Neutrophils Absolute Auto 2200 /uL (1500-7000); Neutrophils Percent Auto 50.2 % (50-75); Platelet Count 234 X10^3/uL (150-400); Red Blood Cell Count 4.02 X10^6/uL (4.0-5.2); Red Cell Distribution Width 12.3 % (11.6-14.8); White Blood Cell Count 4.4 X10^3/uL (4.5-11.0)
[2021-07-04 12:46] LABS: Alanine Aminotransferase 45 IU/L (<35); Albumin 4.9 g/dL (3.5-5.0); Albumin Globulin Ratio 1.5 (1.0-2.8); Alkaline Phosphatase 33 U/L (38-126); Aspartate Aminotransferase 38 IU/L (14-36); Bilirubin Total 0.5 mg/dL (0.2-1.3); Bilirubin Unconjugated 0.5 mg/dL (0.0-1.1); Globulin 3.3 g/dL (1.7-4.1); HEMOLYSIS 31 (0-50); Total Protein 8.2 g/dL (6.3-8.2)
== END ==
PROVIDERS: PCP Registered Nurse Diabetes Educator; Referring Provider Registered Nurse Diabetes Educator; Visit Provider Registered Nurse Diabetes Educator
DX: D75.89 Other specified diseases of blood and blood-forming organs (principal); R74.8 Abnormal levels of other serum enzymes
CPT/HCPCS: 36415; 80076; 85025

== ENCOUNTER → 2021-11-14 13:24 | Outpatient (CLI) | payer OTHER, MEDICAID, SELFPAY ==
[2021-11-14 14:01] LABS: Hematocrit 35.5 % (36-46); Hemoglobin 12.4 g/dL (12.0-16.0); Mean Corpuscular HGB Conc 34.9 % (30-36); Mean Corpuscular Hemoglobin 33.9 PG (26-34); Mean Corpuscular Volume 96.9 fL (80-100); Red Blood Cell Count 3.66 X10^6/uL (4.0-5.2); Red Cell Distribution Width 13.7 % (11.6-14.8); White Blood Cell Count 6.6 X10^3/uL (4.5-11.0)
[2021-11-14 14:12] LABS: Alanine Aminotransferase 26 IU/L (<35); Albumin 4.6 g/dL (3.5-5.0); Albumin Globulin Ratio 1.6 (1.0-2.8); Alkaline Phosphatase 52 U/L (38-126); Aspartate Aminotransferase 29 IU/L (14-36); BUN Creatinine Ratio 30.6 (6-22); Bilirubin Total 0.6 mg/dL (0.2-1.3); Blood Urea Nitrogen 19 mg/dL (7-17); Calcium 9.5 mg/dL (8.4-10.2); Carbon Dioxide 24 mmol/L (22-32); Chloride 100 mmol/L (98-107); Cholesterol 209 mg/dL (140-199); Estimated Glomerular Filt Rate > 60 mL/min (>60); Globulin 2.8 g/dL (1.7-4.1); Glucose 76 mg/dL (70-100); HDL Cholesterol 75 mg/dL (40-60); HEMOLYSIS 16 (0-50); LDL Cholesterol Calculated 112 mg/dL (<100); Potassium 4.2 mmol/L (3.4-5.1); Sodium 132 mmol/L (137-145); Total Protein 7.4 g/dL (6.3-8.2); Triglycerides 108 mg/dL (35-150)
== END ==
PROVIDERS: PCP Registered Nurse Diabetes Educator; Referring Provider Registered Nurse Diabetes Educator; Visit Provider Registered Nurse Diabetes Educator
DX: R73.01 Impaired fasting glucose (principal); E78.5 Hyperlipidemia, unspecified; E83.52 Hypercalcemia; R74.8 Abnormal levels of other serum enzymes
CPT/HCPCS: 36415; 80053; 80061; 83036; 84443; 85027

== ENCOUNTER → 2021-11-18 11:12 | Outpatient (CLI) | payer OTHER, MEDICAID, SELFPAY ==
--- NOTE | 2021-11-18 11:13 | DI.RAD.S_ITS ---
PROCEDURE: XR LUMBAR SPINE 2-3V INDICATIONS: eval pain and TTP L side L2 level. TECHNIQUE: 3 views of the lumbar spine were acquired. COMPARISON: None. FINDINGS: Bones: 5 [id number] vertebrae are present. There is normal bony alignment. Mild convex right curvature of the lumbar spine. No vertebral body compression fractures. No suspicious bony lesions. Mild L1-L2, L2-L3, L3-L4, L4-L5 and L5-S1 degenerative disc disease. Mild L3-L4, L4-L5 and L5-S1 facet arthropathy. Soft tissues: Overlying bowel gas pattern is normal. No suspicious soft tissue calcifications. IMPRESSION: 1. Multilevel degenerative disc disease. 2. Multilevel facet arthropathy. 3. No fracture. No acute osseous lesion. If symptoms and/or clinical suspicion for pathology persists, evaluation with MRI should be considered for further assessment. Dictated by: Diandra Brown MD, PhD on 11/18/2021 at 14:33 Approved by: Diandra Brown MD, PhD on 11/18/2021 at 14:34
--- NOTE | 2021-11-18 11:13 | DI.US.S_ITS ---
LIMITED ULTRASOUND OF RIGHT BREAST: 11/18/2021 CLINICAL: Patient returns today to evaluate a focal asymmetry in the right breast. Comparison is made to exams dated: 11/18/2021 mammogram, 05/28/2021 ultrasound, 05/28/2021 mammogram, 04/22/2021 mammogram, and 12/27/2018 mammogram - [facility]. Color flow ultrasound of the right breast 9 o'clock region was performed. Blackman scale images of the real-time examination were reviewed. Fibroglandular tissue but no mass is identifed in the area of the mammographic focal asymmetry in the right breast 9 o'clock position approximately 2-4 cm from the nipple. IMPRESSION: PROBABLY BENIGN No sonographic abnormality is seen corresponding to the mammographic focal asymmetry in the right breast 9 o'clock position. Follow up right breast mammogram and possible ultrasound in 6 months is recommended to demonstrate stability. Patient will be due for left breast mammogram at the time of the follow up exam. A follow-up mammogram and an ultrasound in 6 months is recommended to demonstrate stability. This exam was interpreted at Station ID: [id number]. Electronically Signed By: David mcadams/oli:11/18/2021 13:28:43 letter sent: Followup Recommended Ultrasound BI-RADS: 3 Probably benign
--- NOTE | 2021-11-18 11:13 | DI.MG.S_ITS ---
UNILATERAL RIGHT DIGITAL DIAGNOSTIC MAMMOGRAM 3D/2D SHORT-TERM FOLLOW-UP: 11/18/2021 CLINICAL: Short term follow up of the right breast. Comparison is made to exams dated: 05/28/2021 mammogram, 04/22/2021 mammogram, 12/27/2018 mammogram, and 05/28/2021 [facility] [place]. There are scattered fibroglandular elements in right breast. There is a 3 mm oval low density focal asymmetry with a circumscribed margin in the right breast at 9 o'clock anterior depth. This is not significantly changed. No other significant masses or calcifications are seen in the breast. IMPRESSION: INCOMPLETE: NEEDS ADDITIONAL IMAGING EVALUATION The 3 mm oval low density focal asymmetry in the right breast is indeterminate. An ultrasound is recommended. This exam was interpreted at Station ID: [id number]. NOTE: For mammograms, a report in lay terms will be sent to the patient. Approximately 15% of breast malignancies will not be visualized mammographically. In the management of a palpable breast mass, a negative mammogram must not discourage biopsy of a clinically suspicious lesion. Electronically Signed By: David mcadams/oli:11/18/2021 13:21:27 ACR BI-RADS Category 0: Incomplete 3340F
== END ==
PROVIDERS: PCP Registered Nurse Diabetes Educator; Referring Provider Registered Nurse Diabetes Educator; Visit Provider Registered Nurse Diabetes Educator
DX: R92.8 Other abnormal and inconclusive findings on diagnostic imaging of breast (principal); N64.89 Other specified disorders of breast; M51.36 Other intervertebral disc degeneration, lumbar region; M51.37 Other intervertebral disc degeneration, lumbosacral region; M47.816 Spondylosis without myelopathy or radiculopathy, lumbar region; M47.817 Spondylosis without myelopathy or radiculopathy, lumbosacral region; M54.50 Low back pain, unspecified; G89.29 Other chronic pain
CPT/HCPCS: 72100; 76642; 77065; G0279

== ENCOUNTER 2022-02-18 12:29 | Emergency (ER) | payer OTHER, MEDICAID, SELFPAY ==
[2022-02-18 12:59] VITALS: BP 189/96; PULSE 84; RESP 16; TEMP 36.9; O2SAT 97; BMI 28.3
[2022-02-18 13:08] LABS: Add Manual Diff / Slide Review NO; Basophils Absolute Auto 100 /uL (0-100); Eosinophils Absolute Auto 100 /uL (0-450); Eosinophils Percent Auto 1.4 % (2-4); Hematocrit 37.7 % (36-46); Hemoglobin 12.8 g/dL (12.0-16.0); Lymphocytes Absolute Auto 1900 /uL (1100-4500); Mean Corpuscular HGB Conc 33.9 % (30-36); Mean Corpuscular Hemoglobin 34.4 PG (26-34); Mean Corpuscular Volume 101.4 fL (80-100); Monocytes Absolute Auto 600 /uL (0-900); Monocytes Percent Auto 8.3 % (3-14); Neutrophils Absolute Auto 4200 /uL (1500-7000); Neutrophils Percent Auto 61.3 % (50-75); Platelet Count 226 X10^3/uL (150-400); Red Blood Cell Count 3.72 X10^6/uL (4.0-5.2); Red Cell Distribution Width 13.5 % (11.6-14.8); White Blood Cell Count 6.9 X10^3/uL (4.5-11.0)
[2022-02-18 13:11] LABS: INR 0.9 (0.9-1.3); Prothrombin Time 10.3 SECONDS (10.1-12.7)
[2022-02-18 13:14] LABS: PTT Partial Thromboplastin Tim 31 SECONDS (26-36)
[2022-02-18 13:18] LABS: Alanine Aminotransferase 20 IU/L (<35); Albumin 4.6 g/dL (3.5-5.0); Albumin Globulin Ratio 1.2 (1.0-2.8); Alkaline Phosphatase 60 U/L (38-126); Aspartate Aminotransferase 26 IU/L (14-36); BUN Creatinine Ratio 24.6 (6-22); Bilirubin Total 0.7 mg/dL (0.2-1.3); Blood Urea Nitrogen 16 mg/dL (7-17); Calcium 9.6 mg/dL (8.4-10.2); Carbon Dioxide 25 mmol/L (22-32); Chloride 102 mmol/L (98-107); Estimated Glomerular Filt Rate > 60 mL/min (>60); Globulin 3.7 g/dL (1.7-4.1); Glucose 90 mg/dL (70-100); HEMOLYSIS < 15 (0-50); Lipase 69 U/L (23-300); Potassium 4.1 mmol/L (3.4-5.1); Sodium 135 mmol/L (137-145); Total Protein 8.3 g/dL (6.3-8.2)
--- NOTE | 2022-02-18 13:24 | DI.CT.S_ITS ---
PROCEDURE: CT ABDOMEN PELVIS W CON INDICATIONS: Epigastric pain TECHNIQUE: After the administration of oral and IV contrast, axial sections were acquired from the lung bases to the pubic symphysis. Coronal and sagittal reformats were performed. For radiation dose reduction, the following was used: automated exposure control, adjustment of mA and/or kV according to patient size. COMPARISON: [facility], [place], US PELVIC COMPLETE, 01/04/2020, 10:04. Located [facility], US, US ABDOMEN LIMITED, 02/22/2021, 9:22. [facility], US, US PELVIC COMPLETE, 09/07/2020, 13:24. Located Within [facility], CT, ABDOMEN/PELVIS WITH CONTRAST, 08/14/2015, 11:44. Located [facility], CT, ABDOMEN/PELVIS WITH CONTRAST, 10/19/2011, 20:25. Located Within [facility], CT, CT ABDOMEN PELVIS W CON, 12/01/2019, 19:04. FINDINGS: Image quality: Excellent. Lung bases: Right basilar scars and atelectasis posterior medially. Small hiatal hernia. Heart: No significant findings. ABDOMEN: Liver: Normal size. Mild hepatic steatosis. Gallbladder: Unremarkable. Biliary ducts: Unremarkable. Pancreas: Unremarkable. Spleen: Unremarkable. Adrenal Glands: Unremarkable. Kidneys and Ureters: Normal size and symmetrical enhancement. There is a cortical scar in the posterior cortex of the left upper pole. A 0.9 cm nodule is seen in the area of the scar, which is new. No stones or hydronephrosis. Stomach and Bowel: Stomach, small bowel loops, and colon are unremarkable. Peritoneum: No abnormal intraperitoneal fluid. No free air. Ventral Wall: No hernia. Abdominal Nodes: No retroperitoneal or mesenteric adenopathy by size criteria. Vessels: Aorta and inferior vena cava are normal in size. PELVIS: Pelvic Organs: There is a 3.1 x 3.7 cm enhancing nodule in the anterior wall of the uterus, likely a uterine fibroid. Ovaries are grossly normal. No free fluid in pelvis. Bladder: Unremarkable. Pelvic Nodes: No enlarged lymph nodes. Miscellaneous: No inguinal hernias are seen. Bones: Mild chronic T12 compression fracture. IMPRESSION: 1. No acute abnormalities in abdomen or pelvis. 2. Mild hepatic steatosis. 3. A cortical scar in the superior pole with a new 0.9 cm nodule. Recommend nonurgent ultrasound follow-up. 4. Uterine fibroid. 5. Mild chronic compression fracture of T12. Dictated by: Fany Ibarra M.D. on 02/18/2022 at 14:04 Approved by: Fany Ibarra M.D. on 02/18/2022 at 14:15
[2022-02-18 13:40] LABS: COVID19 -Nasal RAPID Negative (Negative)
--- NOTE | 2022-02-18 13:50 | DI.RAD.S_ITS ---
PROCEDURE: XR CHEST 2V INDICATIONS: epigastric pain TECHNIQUE: 2 views of the chest were acquired. COMPARISON: [facility], CR, XR CHEST 2V, 06/13/2018, 13:21. FINDINGS: Surgical changes and devices: None. Lungs and pleura: Lungs are clear. No pleural effusions or pneumothorax. Mediastinum: Mediastinal contours are normal. Heart size is normal. Bones and chest wall: No suspicious bony abnormalities. Soft tissues appear unremarkable. IMPRESSION: No acute pulmonary process. Dictated by: Lisa Dupree M.D. on 02/18/2022 at 14:41 Approved by: Lisa Dupree M.D. on 02/18/2022 at 14:42
--- NOTE | 2022-02-18 13:52 | ED_ITS ---
HPI - Abdominal Pain <Seven Alonzo PA-C - Last Filed: 02/18/22 20:24> General Chief Complaint: Abdominal Pain Stated Complaint: ABD PAIN Time Seen by Provider: 02/18/22 12:46 History of Present Illness HPI narrative: 56-year-old female with no reported past medical history cervical cancer presents to the ED with 1 week of left upper quadrant pain. Patient states that she has never had this type of pain before. Patient states that she awakened with this pain a week ago, has been worsening. Patient localizes the pain slightly left of the epigastrium and in the epigastrium. Describes the pain as dull, bruised. Pain does not radiate. Pain is worsened with eating, sitting up. Patient denies fever, chills, chest pain, shortness of breath, cough, URI symptoms, nausea, vomiting, dysuria, flank pain, diarrhea, constipation. Patient denies hematochezia, melena. Patient endorses increased alcohol consumption over the last couple months, about you once again a bottle of wine over the the weekend. Patient denies smoking, other drug use. Related Data Home Medications Medication Instructions Recorded Confirmed No Known Home Medications 11/18/21 11/18/21 Allergies Allergy/AdvReac Type Severity Reaction Status Date / Time codeine [CODEINE] Allergy Unknown maria fernanda siu Verified 11/18/21 10:10 dache Sulfa (Sulfonamide Allergy Unknown Rash Verified 11/18/21 10:10 Antibiotics) pain killers Allergy Unknown severe Uncoded 11/18/21 10:10 headache Review of Systems <Seven Alonzo PA-C - Last Filed: 02/18/22 20:24> Review of Systems ROS Unobtainable: All systems reviewed & are unremarkable except as noted in HPI and below Constitutional Constitutional: Denies chills, Denies fatigue, Denies fever(s), Denies frequent falls, Denies lethargy and Denies weakness Eyes Eyes: Denies change in vision, Denies eye discharge, Denies irritation and Denies loss of vision ENT Ears, Nose, Mouth, and Throat: Denies change in voice, Denies dizziness, Denies neck pain, Denies sore throat and Denies throat swelling Cardiovascular Cardiovascular: Denies chest pain, Denies irregular heart rhythm, Denies lightheadedness, Denies palpitations, Denies dyspnea, Denies dyspnea on exertion and Denies orthopnea Respiratory Respiratory: Denies cough, Denies dyspnea, Denies dyspnea on exertion and Denies wheezing Gastrointestinal Gastrointestinal: Reports abdominal pain, Denies change in bowel habits, Denies diarrhea, Denies nausea and Denies vomiting Genitourinary Genitourinary: Denies hematuria, Denies flank pain, Denies urinary incontinence and Denies urinary urgency Musculoskeletal Musculoskeletal: Denies back pain, Denies muscle weakness, Denies neck pain, Denies numbness and Denies tingling Integumentary/Breasts Skin/Breast: Denies pruritus, Denies erythema, Denies rash and Denies wounds Neurologic Neurologic: Denies behavioral changes, Denies confusion, Denies dizziness, Denies frequent falls, Denies loss of vision, Denies numbness, Denies tingling and Denies weakness Psychiatric Psychiatric: Denies anxiety, Denies behavioral changes, Denies confusion, Denies depression, Denies homicidal ideation and Denies suicidal ideation Endocrine Endocrine: Denies fatigue, Denies flushing and Denies palpitations Hematologic/Lymphatic Hematologic/Lymphatic: Denies easy bruising Allergic/Immunologic Allergic/Immunologic: Denies urticaria, Denies throat swelling and Denies wheezing Patient History <Seven Alonzo PA-C - Last Filed: 02/18/22 20:24> Medical History Abnormal pelvic ultrasound Adjustment disorder with anxiety Anxiety Arthritis Cervical cancer (2002) Chickenpox (1976) Chronic low back pain (~07/2017) Eczema Family history of hypothyroidism History of recurrent ear infection (1974) HTN (hypertension) Impaired fasting blood sugar Kidney disease (1979) Left ankle injury Muscle twitching Sinus drainage Walking pneumonia Surgical History History of loop electrical excision procedure (LEEP) (2002) History of tonsillectomy (1977) Hx of lymph node biopsy (12/20/19) Hx of tubal ligation (1996) Family History Brother Age: 44 Gout Rheumatoid arthritis Brother Age: 51 Cancer of blood vessel Child Age: 24 Ulcerative colitis Father Age: 81 Bladder cancer Hypertension Gout IBS (irritable bowel syndrome) Grandfather Heart disease Grandmother Mental health problem Mother Age: 78 Breast cancer Heart disease Hypertension Sister Age: 61 Fibromyalgia Social History household members: spouse Smoking Status: Never smoker alcohol intake: current Smoking Status: Never smoker alcohol intake frequency: a few times a week Substance Use Type: does not use Exam <Seven Alonzo PA-C - Last Filed: 02/18/22 20:24> Narrative Exam Narrative: Const General:?cooperative, healthy appearing and comfortable [facility] Head:?normal to inspection Ears:?hearing grossly normal bilaterally Nose:?external nose normal Face and sinus:?normal facial exam and sinuses nontender Mouth:?oral mucosae normal Throat:?posterior oropharynx normal Eyes General:?appearance normal, both eyes and all related structures Neck Neck:?normal visual inspection and no lymphadenopathy noted Resp Effort & Inspection:?normal respiratory effort Auscultation:?clear to auscultation bilaterally Cardio Rate:?regular rate Rhythm:?regular rhythm GI Abdomen is soft, nondistended. Abdomen is tender to palpation in the epigastric region. No CVA tenderness. Neuro General:?patient alert, patient awake and patient oriented x3 Initial Vital Signs Initial Vital Signs: Vital Signs Temperature 98.4 F 02/18/22 12:59 Pulse Rate 84 02/18/22 12:59 Respiratory Rate 16 02/18/22 12:59 Blood Pressure 189/96 H 02/18/22 12:59 Pulse Oximetry 97 02/18/22 12:59 Oxygen Delivery Method 02/18/22 12:59 <Dylan Butt MD - Last Filed: 04/01/22 08:51> Initial Vital Signs Initial Vital Signs: Vital Signs Temperature 98.4 F 02/18/22 12:59 Pulse Rate 84 02/18/22 12:59 Respiratory Rate 16 02/18/22 12:59 Blood Pressure 189/96 H 02/18/22 12:59 Pulse Oximetry 97 02/18/22 12:59 Oxygen Delivery Method 02/18/22 12:59 Course <Seven Alonzo PA-C - Last Filed: 02/18/22 20:24> Orders Ordered: Discontinued Medications Al Hydrox/Mg Hydrox/Simethicone 20 ml/ Lidocaine HCl 15 ml 0 ml PO NOW ONE Stop: 02/18/22 13:46 Last Admin: 02/18/22 14:06 Dose: 35 ml Documented By: NR Famotidine (Famotidine 20 Mg/2 Ml Vial) 20 mg IV NOW [facility] Last Admin: 02/18/22 14:06 Dose: 20 mg Documented By: NR Ketorolac Tromethamine (Ketorolac 30 Mg/Ml Vial) 15 mg IV NOW ONE Stop: 02/18/22 14:27 Last Admin: 02/18/22 14:35 Dose: 15 mg Documented By: NR Vital Signs Vital signs: Vital Signs - 8 hr 02/18/22 12:59 02/18/22 16:06 Temperature 98.4 F Pulse Rate 84 73 Respiratory Rate 16 22 Blood Pressure 189/96 H 186/95 H Pulse Oximetry 97 100 Oxygen Delivery Method Room Air Room Air <Dylan Butt MD - Last Filed: 04/01/22 08:51> Orders Ordered: Discontinued Medications Al Hydrox/Mg Hydrox/Simethicone 20 ml/ Lidocaine HCl 15 ml 0 ml PO NOW ONE Stop: 02/18/22 13:46 Last Admin: 02/18/22 14:06 Dose: 35 ml Documented By: NR Famotidine (Famotidine 20 Mg/2 Ml Vial) 20 mg IV NOW [facility] Last Admin: 02/18/22 14:06 Dose: 20 mg Documented By: NR Ketorolac Tromethamine (Ketorolac 30 Mg/Ml Vial) 15 mg IV NOW ONE Stop: 02/18/22 14:27 Last Admin: 02/18/22 14:35 Dose: 15 mg Documented By: NR Vital Signs Vital signs: Vital Signs - 8 hr 02/18/22 12:59 02/18/22 16:06 Temperature 98.4 F Pulse Rate 84 73 Respiratory Rate 16 22 Blood Pressure 189/96 H 186/95 H Pulse Oximetry 97 100 Oxygen Delivery Method Room Air Room Air MDM - Abdominal Pain <Seven Alonzo PA-C - Last Filed: 02/18/22 20:24> Medical Records Attestation: I reviewed the patient's medical records. Lab Data Attestation: I reviewed the patient's lab results. Lab results narrative: Labs within normal limits. Result diagrams: 02/18/22 12:55 02/18/22 12:55 Labs: Lab Results 09/06/22 09/06/22 09/06/22 Range/Units 12:55 12:55 12:55 WBC 6.9 (4.5-11.0) X10^3/uL RBC 3.72 L (4.0-5.2) X10^6/uL Hgb 12.8 (12.0-16.0) g/dL Hct 37.7 (36-46) % MCV 101.4 H (80-100) fL MCH 34.4 H (26-34) PG MCHC 33.9 (30-36) % RDW 13.5 (11.6-14.8) % Plt Count 226 (150-400) X10^3/uL Neut % (Auto) 61.3 (50-75) % Lymph % (Auto) 28.0 (25-40) % Stokes % (Auto) 8.3 (3-14) % Eos % (Auto) 1.4 L (2-4) % Baso % (Auto) 1.0 (0-2) % Neut # (Auto) 4200 (3045-2629) /uL Lymph # (Auto) 1900 (1177-6685) /uL Stokes # (Auto) 600 (0-900) /uL Eos # (Auto) 100 (0-450) /uL Baso # (Auto) 100 (0-100) /uL PT 10.3 (10.1-12.7) SECONDS INR 0.9 (0.9-1.3) APTT 31 (26-36) SECONDS Sodium (137-145) mmol/L Potassium (3.4-5.1) mmol/L Chloride (98-107) mmol/L Carbon Dioxide (22-32) mmol/L BUN (7-17) mg/dL Creatinine (0.52-1.04) mg/dL Estimated GFR (>60) mL/min BUN/Creatinine Ratio (6-22) Glucose (70-100) mg/dL Lactate (0.7-2.1) mmol/L Calcium (8.4-10.2) mg/dL Total Bilirubin (0.2-1.3) mg/dL AST (14-36) IU/L ALT (<35) IU/L Alkaline Phosphatase (38-126) U/L Troponin I (0.01-0.034) ng/mL Total Protein (6.3-8.2) g/dL Albumin (3.5-5.0) g/dL Globulin (1.7-4.1) g/dL Albumin/Globulin Ratio (1.0-2.8) Lipase (23-300) U/L SARS-CoV-2 (PCR) Negative (Negative) 02/18/22 02/18/22 02/18/22 Range/Units 12:55 12:55 12:55 WBC (4.5-11.0) X10^3/uL RBC (4.0-5.2) X10^6/uL Hgb (12.0-16.0) g/dL Hct (36-46) % MCV (80-100) fL MCH (26-34) PG MCHC (30-36) % RDW (11.6-14.8) % Plt Count (150-400) X10^3/uL Neut % (Auto) (50-75) % Lymph % (Auto) (25-40) % Stokes % (Auto) (3-14) % Eos % (Auto) (2-4) % Baso % (Auto) (0-2) % Neut # (Auto) (7219-9878) /uL Lymph # (Auto) (8451-6600) /uL Stokes # (Auto) (0-900) /uL Eos # (Auto) (0-450) /uL Baso # (Auto) (0-100) /uL PT (10.1-12.7) SECONDS INR (0.9-1.3) APTT (26-36) SECONDS Sodium 135 L (137-145) mmol/L Potassium 4.1 (3.4-5.1) mmol/L Chloride 102 (98-107) mmol/L Carbon Dioxide 25 (22-32) mmol/L BUN 16 (7-17) mg/dL Creatinine 0.65 (0.52-1.04) mg/dL Estimated GFR > 60 (>60) mL/min BUN/Creatinine Ratio 24.6 H (6-22) Glucose 90 (70-100) mg/dL Lactate 1.0 (0.7-2.1) mmol/L Calcium 9.6 (8.4-10.2) mg/dL Total Bilirubin 0.7 (0.2-1.3) mg/dL AST 26 (14-36) IU/L ALT 20 (<35) IU/L Alkaline Phosphatase 60 (38-126) U/L Troponin I < 0.012 (0.01-0.034) ng/mL Total Protein 8.3 H (6.3-8.2) g/dL Albumin 4.6 (3.5-5.0) g/dL Globulin 3.7 (1.7-4.1) g/dL Albumin/Globulin Ratio 1.2 (1.0-2.8) Lipase 69 (23-300) U/L SARS-CoV-2 (PCR) (Negative) Point of care testing: Urine Dip Bedside Urine Glucose Negative Bedside Urine Bilirubin - Negative Bedside Urine Ketone - Negative Urine Specific Carlton 1.015 Bedside Urine Occult Blood - Negative Bedside Urine pH 6.0 Bedside Urine Protein - Negative Bedside Urine Urobilinogen - Negative Bedside Urine Nitrite - Negative Bedside Urine Leukocytes - Negative Esterase Imaging Data CT scan - abdomen/pelvis: Radiologist's Impression: PROCEDURE:? CT ABDOMEN PELVIS W CON ? INDICATIONS:? Epigastric pain ? TECHNIQUE:? After the administration of oral and IV contrast, axial sections were acquired from the lung bases to the pubic symphysis.? Coronal and sagittal reformats were performed.? For radiation dose reduction, the following was used:? automated exposure control, adjustment of mA and/or kV according to patient size. ? COMPARISON:? [facility], , US PELVIC COMPLETE, 01/04/2020, 10:04.? [facility], , US ABDOMEN LIMITED, 02/22/2021, 9:22.? [facility], , US PELVIC COMPLETE, 09/07/2020, 13:24.? [facility], CT, ABDOMEN/PELVIS WITH CONTRAST, 08/14/2015, 11:44.? [facility], CT, ABDOMEN/PELVIS WITH CONTRAST, 10/19/2011, 20:25.? [facility], CT, CT ABDOMEN PELVIS W CON, 12/01/2019, 19:04. ? FINDINGS:? Image quality:? Excellent.? ? Lung bases:? Right basilar scars and atelectasis posterior medially.? Small hiatal hernia.? Heart:? No significant findings. ? ? ABDOMEN: Liver:? Normal size.? Mild hepatic steatosis.? ? Gallbladder:? Unremarkable.? ? Biliary ducts:? Unremarkable.? ? Pancreas:? Unremarkable.? ? Spleen:? Unremarkable.? ? Adrenal Glands:? Unremarkable.? ? Kidneys and Ureters:? Normal size and symmetrical enhancement.? There is a cortical scar in the posterior cortex of the left upper pole.? A 0.9 cm nodule is seen in the area of the scar, which is new.? No stones or hydronephrosis.? ? Stomach and Bowel:? Stomach, small bowel loops, and colon are unremarkable. Peritoneum:? No abnormal intraperitoneal fluid.? No free air.? ? Ventral Wall: ? No hernia.? Abdominal Nodes:? No retroperitoneal or mesenteric adenopathy by size criteria.? Vessels:? Aorta and inferior vena cava are normal in size.? ? PELVIS: Pelvic Organs:? There is a 3.1 x 3.7 cm enhancing nodule in the anterior wall of the uterus, likely a uterine fibroid.? Ovaries are grossly normal.? No free fluid in pelvis. Bladder:? Unremarkable.? ? Pelvic Nodes: No enlarged lymph nodes.? Miscellaneous: No inguinal hernias are seen. ? ? ? Bones:? Mild chronic T12 compression fracture. ? ? IMPRESSION:? ? 1.? No acute abnormalities in abdomen or pelvis. 2.? Mild hepatic steatosis. 3.? A cortical scar in the superior pole with a new 0.9 cm nodule.? Recommend nonurgent ultrasound follow-up. 4. Uterine fibroid. 5. Mild chronic compression fracture of T12.? Dictated by: Fany Ibarra M.D. on 02/18/2022 at 14:04 ? ? Approved by: Fany Ibarra M.D. on 02/18/2022 at 14:15 ? Chest x-ray: Radiologist's Impression: PROCEDURE:? XR CHEST 2V ? INDICATIONS:? epigastric pain ? TECHNIQUE:? 2 views of the chest were acquired.? ? COMPARISON:? [facility], , XR CHEST 2V, 06/13/2018, 13:21. ? FINDINGS:? ? Surgical changes and devices:? None.? ? Lungs and pleura:? Lungs are clear.? No pleural effusions or pneumothorax.? ? Mediastinum:? Mediastinal contours are normal.? Heart size is normal.? ? Bones and chest wall:? No suspicious bony abnormalities.? Soft tissues appear unremarkable.? ? IMPRESSION:? No acute pulmonary process. ? ? Dictated by: Lisa Dupree M.D. on 02/18/2022 at 14:41 ? ? Approved by: Lisa Dupree M.D. on 02/18/2022 at 14:42 ? [facility] Narrative Medical decision making narrative: 56-year-old female with no reported past medical history cervical cancer presents to the ED with 1 week of left upper quadrant pain. Concern for pancreatitis versus PUD versus gastritis versus cholecystitis versus cholelithiasis versus bowel obstruction ACS versus pneumonia versus UTI versus malignancy versus other. Will obtain labs, lactate, lipase, UA, chest x-ray, troponin, CTAP. Will consider ultrasound gallbladder as well. Will give GI cocktail, Pepcid AC, ketorolac for symptoms. Will reassess. Workup largely unremarkable. Patient's symptoms likely due to PUD versus gastritis versus acid reflux. Patient advised to trial Pepcid AC, Prilosec. Patient agrees to follow-up with PCP and GI for further evaluation treatment. ED return precautions were discussed with patient. Patient verbalized understanding. <Dylan Butt MD - Last Filed: 04/01/22 08:51> Lab Data Labs: Lab Results 02/18/22 02/18/22 02/18/22 Range/Units 12:55 12:55 12:55 WBC 6.9 (4.5-11.0) X10^3/uL RBC 3.72 L (4.0-5.2) X10^6/uL Hgb 12.8 (12.0-16.0) g/dL Hct 37.7 (36-46) % MCV 101.4 H (80-100) fL MCH 34.4 H (26-34) PG MCHC 33.9 (30-36) % RDW 13.5 (11.6-14.8) % Plt Count 226 (150-400) X10^3/uL Neut % (Auto) 61.3 (50-75) % Lymph % (Auto) 28.0 (25-40) % Stokes % (Auto) 8.3 (3-14) % Eos % (Auto) 1.4 L (2-4) % Baso % (Auto) 1.0 (0-2) % Neut # (Auto) 4200 (2053-8129) /uL Lymph # (Auto) 1900 (9622-6104) /uL Stokes # (Auto) 600 (0-900) /uL Eos # (Auto) 100 (0-450) /uL Baso # (Auto) 100 (0-100) /uL PT 10.3 (10.1-12.7) SECONDS INR 0.9 (0.9-1.3) APTT 31 (26-36) SECONDS Sodium (137-145) mmol/L Potassium (3.4-5.1) mmol/L Chloride (98-107) mmol/L Carbon Dioxide (22-32) mmol/L BUN (7-17) mg/dL Creatinine (0.52-1.04) mg/dL Estimated GFR (>60) mL/min BUN/Creatinine Ratio (6-22) Glucose (70-100) mg/dL Lactate (0.7-2.1) mmol/L Calcium (8.4-10.2) mg/dL Total Bilirubin (0.2-1.3) mg/dL AST (14-36) IU/L ALT (<35) IU/L Alkaline Phosphatase (38-126) U/L Troponin I (0.01-0.034) ng/mL Total Protein (6.3-8.2) g/dL Albumin (3.5-5.0) g/dL Globulin (1.7-4.1) g/dL Albumin/Globulin Ratio (1.0-2.8) Lipase (23-300) U/L SARS-CoV-2 (PCR) Negative (Negative) 02/18/22 02/18/22 02/18/22 Range/Units 12:55 12:55 12:55 WBC (4.5-11.0) X10^3/uL RBC (4.0-5.2) X10^6/uL Hgb (12.0-16.0) g/dL Hct (36-46) % MCV (80-100) fL MCH (26-34) PG MCHC (30-36) % RDW (11.6-14.8) % Plt Count (150-400) X10^3/uL Neut % (Auto) (50-75) % Lymph % (Auto) (25-40) % Stokes % (Auto) (3-14) % Eos % (Auto) (2-4) % Baso % (Auto) (0-2) % Neut # (Auto) (8958-9793) /uL Lymph # (Auto) (3800-5194) /uL Stokes # (Auto) (0-900) /uL Eos # (Auto) (0-450) /uL Baso # (Auto) (0-100) /uL PT (10.1-12.7) SECONDS INR (0.9-1.3) APTT (26-36) SECONDS Sodium 135 L (137-145) mmol/L Potassium 4.1 (3.4-5.1) mmol/L Chloride 102 (98-107) mmol/L Carbon Dioxide 25 (22-32) mmol/L BUN 16 (7-17) mg/dL Creatinine 0.65 (0.52-1.04) mg/dL Estimated GFR > 60 (>60) mL/min BUN/Creatinine Ratio 24.6 H (6-22) Glucose 90 (70-100) mg/dL Lactate 1.0 (0.7-2.1) mmol/L Calcium 9.6 (8.4-10.2) mg/dL Total Bilirubin 0.7 (0.2-1.3) mg/dL AST 26 (14-36) IU/L ALT 20 (<35) IU/L Alkaline Phosphatase 60 (38-126) U/L Troponin I < 0.012 (0.01-0.034) ng/mL Total Protein 8.3 H (6.3-8.2) g/dL Albumin 4.6 (3.5-5.0) g/dL Globulin 3.7 (1.7-4.1) g/dL Albumin/Globulin Ratio 1.2 (1.0-2.8) Lipase 69 (23-300) U/L SARS-CoV-2 (PCR) (Negative) Point of care testing: Urine Dip Bedside Urine Glucose Negative Bedside Urine Bilirubin - Negative Bedside Urine Ketone - Negative Urine Specific Carlton 1.015 Bedside Urine Occult Blood - Negative Bedside Urine pH 6.0 Bedside Urine Protein - Negative Bedside Urine Urobilinogen - Negative Bedside Urine Nitrite - Negative Bedside Urine Leukocytes - Negative Esterase Discharge Plan Departure Patient Disposition: Home Clinical Impression: Abdominal pain Instructions: DI for Abdominal Pain-Adult Activity Restrictions/Additional Instructions: You were evaluated in the ED today for abdominal pain. Your labs, EKG, chest x- ray, ultrasound, CT were normal. Your symptoms are likely due to gastritis or a peptic ulcer or acid reflux. You may take Prilosec and Pepcid AC for the next 2 weeks. Please avoid alcohol, NSAIDs such as ibuprofen or Aleve, spicy foods. Please follow-up with the PCP and electrical appliance preparer for further evaluation and treatment. Return to the ED if your symptoms worsen, you experience fever, chills, uncontrollable vomiting. Prescriptions: No Action No Known Home Medications Referrals: Klever Beltran ARNP [Primary Care Provider] - Visit Report Forms: Patient Portal/API <Dylan Butt MD - Last Filed: 04/01/22 08:51> Cosign ED Attending Cosignature Attestation: I was immediately available for consultation of this patient was seen and evaluated by the APC in the department.
[2022-02-18] MEDS: MAG HYDROX/ALUMINUM/SIMETH SUS 20 ML, LIDOCAINE VISCOUS 2% 15 ML PO (14:06)
[2022-02-18] MEDS: FAMOTIDINE 20 MG/2 ML VIAL IV (14:06)
[2022-02-18 14:23] LABS: Troponin I < 0.012 ng/mL (0.01-0.034)
--- NOTE | 2022-02-18 14:26 | DI.US.S_ITS ---
PROCEDURE: US ABDOMEN LIMITED INDICATIONS: EPIGASTRIC PAIN TECHNIQUE: Real-time scanning was performed of the abdominal and retroperitoneal organs, with image documentation. COMPARISON: [facility], CT, CT ABDOMEN PELVIS W CON, 02/18/2022, 13:30. [facility], US, US ABDOMEN LIMITED, 02/22/2021, 9:22. FINDINGS: Liver: Liver is normal in size and homogeneous in echotexture. Gallbladder: Gallbladder is normal in sonographic appearance without gallstones, gallbladder wall thickening, pericholecystic fluid, or abnormal sonographic Herrera's. Biliary ducts: Intrahepatic bile ducts are non-dilated. Extrahepatic bile duct caliber measures 5 mm. Normal is 6-7 mm or less in diameter, or 10 mm or less post-cholecystectomy. Pancreas: Visualized portions of the pancreas are sonographically normal. Kidneys: Limited evaluation of the left kidney demonstrates no sonographic correlate for 0.9 cm superior pole renal lesion seen on comparison CT from earlier same day. No hydronephrosis or nephrolithiasis. Miscellaneous: No free abdominal fluid. Incidental note of prominent hypoechoic bowel noted in the area of patient's pain within the left upper quadrant and left lumbar region. Overall, study limited by patient body habitus and bowel gas. IMPRESSION: 1. Multiple nonspecific, prominent hypoechoic bowel noted in the left upper quadrant/left lumbar region. 2. Recently described 0.9 cm left upper pole renal lesion is not seen on sonographic evaluation. Considered dedicated outpatient CT/MRI of the abdomen using renal mass protocol for further characterization. 3. Otherwise, no acute sonographic abnormalities identified in the abdomen to explain patient's symptoms. Dictated by: Jarrod Bernstein M.D. on 02/18/2022 at 15:06 Approved by: Jarrod Bernstein M.D. on 02/18/2022 at 15:11
[2022-02-18] MEDS: KETOROLAC 30 MG/ML VIAL 15 MG IV (14:35)
[2022-02-18 16:06] VITALS: BP 186/95; PULSE 73; RESP 22; O2SAT 100
== END 2022-02-18 16:07 | disposition home or self-care (01) ==
PROVIDERS: Emergency Provider Student in an Organized Health Care Education/Training Program; PCP Registered Nurse Diabetes Educator
DX: R10.12 Left upper quadrant pain (principal); Z20.822 Contact with and (suspected) exposure to COVID-19
CPT/HCPCS: 36415; 71046; 74177; 76705; 80053; 81003; 83605; 83690; 84484; 85025; 85610; 85730; 87635; 93005; 93010; 96374; 96375; 99284; C9803; J1885; Q9967

== ENCOUNTER → 2022-07-07 12:26 | Outpatient (CLI) | payer OTHER, MEDICAID, SELFPAY ==
--- NOTE | 2022-07-07 12:31 | DI.MG.S_ITS ---
BILATERAL DIGITAL DIAGNOSTIC MAMMOGRAM 3D/2D SHORT-TERM FOLLOW-UP: 07/07/2022 CLINICAL: Short term follow up of the right breast, due for bilateral imaging. Comparison is made to exams dated: 11/18/2021 mammogram, 05/28/2021 mammogram, and 04/22/2021 mammogram - [facility]. There are scattered areas of fibroglandular density in both breasts (category b / 25%-50% glandular tissue). There is a focal asymmetry in the right breast at 9 o'clock anterior depth. This is not significantly changed. No other significant masses, calcifications, or other findings are seen in either breast. IMPRESSION: PROBABLY BENIGN The focal asymmetry in the right breast is probably benign. A follow-up mammogram in 6 months is recommended to demonstrate stability. Please refer to 04/22/21 mammogram when it was first detected. No sonographic abnormality was seen in 11/18/21. Based on the Tyrer Cuzick model (a risk assessment model) the patient's lifetime risk is 10.8% and her 10 year risk is 3.3%. According to the ACR, ACS, and NCCN guidelines, an annual breast MRI exam along with mammogram is recommended if the patient's lifetime risk is 20% or greater. This exam was interpreted at Station ID: [id number]. NOTE: For mammograms, a report in lay terms will be sent to the patient. Approximately 15% of breast malignancies will not be visualized mammographically. In the management of a palpable breast mass, a negative mammogram must not discourage biopsy of a clinically suspicious lesion. Electronically Signed By: Arturo Nash M.D. /:07/07/2022 13:14:48 letter sent: Followup Recommended ACR BI-RADS Category 3: Probably benign [id number]
== END ==
PROVIDERS: PCP Registered Nurse Diabetes Educator; Referring Provider Registered Nurse Diabetes Educator; Visit Provider Registered Nurse Diabetes Educator
DX: R92.8 Other abnormal and inconclusive findings on diagnostic imaging of breast (principal); N64.89 Other specified disorders of breast
CPT/HCPCS: 77066; G0279

== ENCOUNTER 2023-02-04 14:34 | Emergency (ER) | payer OTHER, MEDICAID, SELFPAY ==
[2023-02-04 14:48] VITALS: BP 177/84; PULSE 80; RESP 18; TEMP 37; O2SAT 99; BMI 28.8
--- NOTE | 2023-02-04 14:54 | DI.RAD.S_ITS ---
PROCEDURE: XR CHEST 1V INDICATIONS: chest pain TECHNIQUE: One view of the chest was acquired. COMPARISON: [facility], CR, XR CHEST 2V, 02/18/2022, 13:58. [facility], CR, XR CHEST 2V, 06/13/2018, 13:21. FINDINGS: Surgical changes and devices: None. Lungs and pleura: Lungs are clear. No pleural effusions or pneumothorax. Mediastinum: Mediastinal contours appear normal. Heart size is normal. Bones and chest wall: No suspicious bony lesions. Overlying soft tissues appear unremarkable. IMPRESSION: No acute cardiopulmonary process. Dictated by: Luís Timmons M.D. on 02/04/2023 at 16:03 Approved by: Luís Timmons M.D. on 02/04/2023 at 16:04
[2023-02-04] MEDS: ASPIRIN 81 MG CHEW TAB 324 MG PO (14:57)
[2023-02-04 15:22] LABS: Add Manual Diff / Slide Review NO; Basophils Absolute Auto 0 /uL (0-100); Basophils Percent Auto 0.6 % (0-2); Eosinophils Absolute Auto 100 /uL (0-450); Eosinophils Percent Auto 1.3 % (2-4); Hematocrit 38.9 % (36-46); Hemoglobin 13.3 g/dL (12.0-16.0); Lymphocytes Absolute Auto 1800 /uL (1100-4500); Mean Corpuscular HGB Conc 34.1 % (30-36); Mean Corpuscular Hemoglobin 34.2 PG (26-34); Mean Corpuscular Volume 100.2 fL (80-100); Monocytes Absolute Auto 500 /uL (0-900); Monocytes Percent Auto 9.5 % (3-14); Neutrophils Absolute Auto 2900 /uL (1500-7000); Neutrophils Percent Auto 54.6 % (50-75); Platelet Count 245 X10^3/uL (150-400); Red Blood Cell Count 3.88 X10^6/uL (4.0-5.2); White Blood Cell Count 5.2 X10^3/uL (4.5-11.0)
[2023-02-04 15:26] LABS: INR 0.9 (0.9-1.3); Prothrombin Time 10.6 SECONDS (10.1-12.7)
[2023-02-04 15:29] LABS: PTT Partial Thromboplastin Tim 28 SECONDS (26-36)
[2023-02-04 15:30] LABS: Alanine Aminotransferase 44 IU/L (<35); Albumin 4.9 g/dL (3.5-5.0); Albumin Globulin Ratio 1.4 (1.0-2.8); Alkaline Phosphatase 50 U/L (38-126); Aspartate Aminotransferase 47 IU/L (14-36); BUN Creatinine Ratio 19.5 (6-22); Bilirubin Total 0.6 mg/dL (0.2-1.3); Blood Urea Nitrogen 16 mg/dL (7-17); Calcium 10.9 mg/dL (8.4-10.2); Carbon Dioxide 28 mmol/L (22-32); Chloride 101 mmol/L (98-107); Creatine Kinase 97 U/L (30-135); Estimated Glomerular Filt Rate > 60 mL/min (>60); Globulin 3.6 g/dL (1.7-4.1); Glucose 94 mg/dL (70-100); HEMOLYSIS 25 (0-50); Lipase 102 U/L (23-300); Magnesium 2.1 mg/dL (1.6-2.3); Potassium 4.3 mmol/L (3.4-5.1); Sodium 137 mmol/L (137-145); Total Protein 8.5 g/dL (6.3-8.2)
[2023-02-04 15:42] LABS: Troponin I < 0.012 ng/mL (0.01-0.034)
[2023-02-04 17:03] VITALS: BP 183/88; PULSE 74; O2SAT 92
[2023-02-04 17:05] VITALS: BP 183/88; PULSE 72; RESP 12; O2SAT 99
--- NOTE | 2023-02-04 17:06 | PC.NURSE ---
Patient reports generalized fatigue. Started losartan for elevated BP 01/10. Denies chest pain at present or SOB.
[2023-02-04 17:30] VITALS: BP 175/89; PULSE 70; RESP 22; O2SAT 100
--- NOTE | 2023-02-04 17:37 | ED_ITS ---
HPI - General Adult General Chief complaint: Hypertension Stated complaint: HBP 180/108 CHEST TIGHT/TIRED Time Seen by Provider: 02/04/23 17:23 Source: patient Mode of arrival: Ambulatory History of Present Illness HPI narrative: 57-year-old female nonsmoker with history of hypertension presents with a chief complaint of elevated blood pressure for the past few weeks. She was relatively recently started on losartan 25 mg. She states that she had been having some chest tightness and back pain as well as generalized fatigue. She denies any exertional symptoms, no radiation, provocation or palliation of her discomfort. She states that it was notably worse yesterday when her pressure was in the 190s or so. She is not having much in the way of discomfort today. She denies fever or chills. She has no nausea, vomiting or diarrhea. She denies headache or blurred vision or neurologic symptoms such as numbness, tingling or weakness Related Data Previous Rx's Medication Instructions Recorded losartan 25 mg tablet 25 mg PO BID #60 tabs 02/04/23 Allergies Allergy/AdvReac Type Severity Reaction Status Date / Time codeine [CODEINE] Allergy Unknown jittery,hea Verified 11/18/21 10:10 dache Sulfa (Sulfonamide Allergy Unknown Rash Verified 11/18/21 10:10 Antibiotics) pain killers Allergy Unknown severe Uncoded 11/18/21 10:10 headache Review of Systems Review of Systems Narrative: GENERAL: Denies chills, fatigue, malaise, fever, sweats. HEENT: Denies sinus pain, ear pain, sore throat, difficulty swallowing, dizziness. RESPIRATORY: Denies dyspnea, cough, wheezing, hemoptysis, sputum. CARDIOVASCULAR: see HPI GASTROINTESTINAL: Denies nausea, vomiting, abdominal pain, diarrhea, constipation, melena. : Denies dysuria, frequency, incontinence, hematuria, urinary retention. MUSCULOSKELETAL: denies weakness, joint pain, or bony pain SKIN: Denies rash, skin lesions, or other NEUROLOGIC: Denies weakness, headache, numbness, change in speech, confusion, seizures, incoordination. PSYCHIATRIC: No concerning psychosocial issues. 12 point review of systems is negative except for those stated above Patient History Medical History Abnormal pelvic ultrasound Adjustment disorder with anxiety Anxiety Arthritis Cervical cancer (2002) Chickenpox (1976) Chronic low back pain (~07/2017) Eczema Family history of hypothyroidism History of recurrent ear infection (1974) HTN (hypertension) Impaired fasting blood sugar Kidney disease (1979) Left ankle injury Muscle twitching Sinus drainage Walking pneumonia Surgical History History of loop electrical excision procedure (LEEP) (2002) History of tonsillectomy (1977) Hx of lymph node biopsy (12/20/19) Hx of tubal ligation (1996) Family History Brother Age: 45 Gout Rheumatoid arthritis Brother Age: 52 Cancer of blood vessel Child Age: 25 Ulcerative colitis Father Age: 82 Bladder cancer Hypertension Gout IBS (irritable bowel syndrome) Grandfather Heart disease Grandmother Mental health problem Mother Age: 79 Breast cancer Heart disease Hypertension Sister Age: 62 Fibromyalgia Social History household members: spouse Smoking Status: Never smoker alcohol intake: current Smoking Status: Never smoker alcohol intake frequency: a few times a week Substance Use Type: does not use Exam Narrative Exam Narrative: GENERAL: [57] year old patient appears stated age. Well-developed patient, in mild distress. HEAD: Atraumatic. Normocephalic. EYES: Pupils equal round and reactive. Extraocular motions intact. No scleral icterus. No injection or drainage. ENT: Nose without bleeding, purulent drainage. Throat without erythema, tonsillar hypertrophy or exudate. Airway patent. NECK: Trachea midline. Non tender CARDIOVASCULAR: Regular rate and rhythm without murmurs, gallops, or rubs. RESPIRATORY: Clear to auscultation. Breath sounds equal bilaterally. No wheezes, rales, or rhonchi. GASTROINTESTINAL: Abdomen soft, non-tender, nondistended. EXTREMITIES: No edema or joint tenderness. BACK: Nontender without deformity or crepitance. No flank tenderness. NEURO: AOx3. SKIN: No rash or erythema of visible areas Initial Vital Signs Initial Vital Signs: Vital Signs Temperature 98.6 F 02/04/23 14:48 Pulse Rate 80 02/04/23 14:48 Respiratory Rate 18 02/04/23 14:48 Blood Pressure 177/84 H 02/04/23 14:48 Pulse Oximetry 99 08/23/23 14:48 Oxygen Delivery Method Room Air 02/04/23 14:48 Course Orders Ordered: Discontinued Medications Aspirin (Aspirin 81 Mg Chew Tab) 324 mg PO NOW ONE Stop: 02/04/23 14:55 Last Admin: 02/04/23 14:57 Dose: 324 mg Documented By: JOSEPH Vital Signs Vital signs: Vital Signs - 8 hr 02/04/23 14:48 02/04/23 17:05 Temperature 98.6 F Pulse Rate 80 72 Respiratory Rate 18 12 Blood Pressure 177/84 H 183/88 H Pulse Oximetry 99 99 Oxygen Delivery Method Room Air Room Air Medical Decision Making Lab Data 02/04/23 15:12 02/04/23 15:12 Labs: Lab Results 02/04/23 02/04/23 02/04/23 Range/Units 15:12 15:12 15:12 WBC 5.2 (4.5-11.0) X10^3/uL RBC 3.88 L (4.0-5.2) X10^6/uL Hgb 13.3 (12.0-16.0) g/dL Hct 38.9 (36-46) % MCV 100.2 H (80-100) fL MCH 34.2 H (26-34) PG MCHC 34.1 (30-36) % RDW 13.0 (11.6-14.8) % Plt Count 245 (150-400) X10^3/uL Neut % (Auto) 54.6 (50-75) % Lymph % (Auto) 34.0 (25-40) % [place] % (Auto) 9.5 (3-14) % Eos % (Auto) 1.3 L (2-4) % Baso % (Auto) 0.6 (0-2) % Neut # (Auto) 2900 (7575-2023) /uL Lymph # (Auto) 1800 (5978-4194) /uL [place] # (Auto) 500 (0-900) /uL Eos # (Auto) 100 (0-450) /uL Baso # (Auto) 0 (0-100) /uL PT 10.6 (10.1-12.7) SECONDS INR 0.9 (0.9-1.3) APTT 28 (26-36) SECONDS Sodium 137 (137-145) mmol/L Potassium 4.3 (3.4-5.1) mmol/L Chloride 101 (98-107) mmol/L Carbon Dioxide 28 (22-32) mmol/L BUN 16 (7-17) mg/dL Creatinine 0.82 (0.52-1.04) mg/dL Estimated GFR > 60 (>60) mL/min BUN/Creatinine Ratio 19.5 (6-22) Glucose 94 (70-100) mg/dL Calcium 10.9 H (8.4-10.2) mg/dL Magnesium 2.1 (1.6-2.3) mg/dL Total Bilirubin 0.6 (0.2-1.3) mg/dL AST 47 H (14-36) IU/L ALT 44 H (<35) IU/L Alkaline Phosphatase 50 (38-126) U/L Total Creatine Kinase 97 (30-135) U/L Troponin I < 0.012 (0.01-0.034) ng/mL Total Protein 8.5 H (6.3-8.2) g/dL Albumin 4.9 (3.5-5.0) g/dL Globulin 3.6 (1.7-4.1) g/dL Albumin/Globulin Ratio 1.4 (1.0-2.8) Lipase 102 (23-300) U/L Urine Dip Bedside Urine Glucose Negative Bedside Urine Bilirubin - Negative Bedside Urine Ketone - Negative Urine Specific [place] 1.005 Bedside Urine Occult Blood - Negative Bedside Urine pH 6.0 Bedside Urine Protein - Negative Bedside Urine Urobilinogen - Negative Bedside Urine Nitrite - Negative Bedside Urine Leukocytes - Negative Esterase Point of care testing: Urine Dip Bedside Urine Glucose Negative Bedside Urine Bilirubin - Negative Bedside Urine Ketone - Negative Urine Specific [place] 1.005 Bedside Urine Occult Blood - Negative Bedside Urine pH 6.0 Bedside Urine Protein - Negative Bedside Urine Urobilinogen - Negative Bedside Urine Nitrite - Negative Bedside Urine Leukocytes - Negative Esterase MDM Narrative Medical decision making narrative: [57] year old patient presents withElevated blood pressure more so yesterday and today, chest tightness and back pain along with fatigue Multiple etiologies for patient's symptoms considered including, but not limited to: [ hypertension versus cardiac ischemia versus other] Prior Charts reviewed in our EMR Primary Historian: patient Labs reviewed and interpreted by myself: no leukocytosis or left shift, no signs of anemia, electrolytes and kidney function as well as troponin in the normal range Imaging reviewed: chest x-ray without acute findings history and physical exam are reassuring, symptoms improved with blood pressure control. Labs, EKG and imaging unremarkable Patient's symptoms improved over duration of stay with above-stated therapies. multiple diagnoses considered as noted above, cardiac ischemia thought unlikely given negative troponin, nonischemic EKG, lack of associated symptoms. Findings and discharge diagnosis discussed with patient/family followed by verbalization of understanding Return precautions discussed with patient/family whom verbalize understanding of diagnosis and plan Discharge Plan Departure Patient Disposition: Home Clinical Impression: Hypertension Instructions: DI for High Blood Pressure Activity Restrictions/Additional Instructions: *You have been diagnosed with [hypertension] *What to do: *Please continue to take your regular medications as directed. [x ] New medication prescriptions sent to your pharmacy: [[facility] ] [ ] New medication written as a paper prescription [ ] No new medications given *Please follow up with your primary care provider in 2-3 days, call for an appointment. Let them know you were seen in the Emergency Department and that we ask that you be seen in follow up. We will electronically transmit a record of today's note if your PCP is in our system *Return to Emergency Department if you should have any new, worsening or concerning symptoms, such as [fever greater than 101 F, shaking chills, worsening pain, persistent vomiting or other bothersome symptoms] Prescriptions: New losartan 25 mg tablet 25 mg PO BID Qty: 60 0RF Referrals: Klever Beltran ARNP [Primary Care Provider] - Stand Alone Forms: Patient Portal/API
== END 2023-02-04 17:59 | disposition home or self-care (01) ==
PROVIDERS: Emergency Provider Emergency Medicine; PCP Registered Nurse Diabetes Educator
DX: I10 Essential (primary) hypertension (principal); R07.9 Chest pain, unspecified
CPT/HCPCS: 36415; 71045; 80053; 81003; 82550; 83690; 83735; 84484; 85025; 85610; 85730; 93005; 99284

== ENCOUNTER → 2023-03-02 17:19 | Outpatient (CLI) | payer OTHER, MEDICAID, SELFPAY ==
[2023-03-02 18:02] LABS: Hematocrit 35.9 % (36-46); Hemoglobin 12.5 g/dL (12.0-16.0); Mean Corpuscular HGB Conc 34.7 % (30-36); Mean Corpuscular Hemoglobin 34.2 PG (26-34); Mean Corpuscular Volume 98.7 fL (80-100); Platelet Count 222 X10^3/uL (150-400); Red Blood Cell Count 3.64 X10^6/uL (4.0-5.2); Red Cell Distribution Width 12.9 % (11.6-14.8); White Blood Cell Count 5.3 X10^3/uL (4.5-11.0)
[2023-03-02 18:24] LABS: Alanine Aminotransferase 38 IU/L (<35); Albumin 4.6 g/dL (3.5-5.0); Albumin Globulin Ratio 1.4 (1.0-2.8); Alkaline Phosphatase 52 U/L (38-126); Aspartate Aminotransferase 36 IU/L (14-36); BUN Creatinine Ratio 26.4 (6-22); Bilirubin Total 0.6 mg/dL (0.2-1.3); Blood Urea Nitrogen 14 mg/dL (7-17); Calcium 10.3 mg/dL (8.4-10.2); Carbon Dioxide 23 mmol/L (22-32); Chloride 102 mmol/L (98-107); Cholesterol 266 mg/dL (140-199); Estimated Glomerular Filt Rate > 60 mL/min (>60); Globulin 3.2 g/dL (1.7-4.1); Glucose 94 mg/dL (70-100); HDL Cholesterol 70 mg/dL (40-60); HEMOLYSIS < 15 (0-50); LDL Cholesterol Calculated 168 mg/dL (<100); Potassium 3.8 mmol/L (3.4-5.1); Sodium 133 mmol/L (137-145); Total Protein 7.8 g/dL (6.3-8.2); Triglycerides 141 mg/dL (35-150)
[2023-03-02 18:52] LABS: TSH w/ Reflex to FT4 1.78 uIU/mL (0.47-4.68)
== END ==
PROVIDERS: PCP Registered Nurse Diabetes Educator; Referring Provider Registered Nurse Diabetes Educator; Visit Provider Registered Nurse Diabetes Educator
DX: E78.2 Mixed hyperlipidemia (principal); F41.9 Anxiety disorder, unspecified; Z79.899 Other long term (current) drug therapy; Z13.29 Encounter for screening for other suspected endocrine disorder
CPT/HCPCS: 36415; 80053; 80061; 84443; 85027

== ENCOUNTER → 2023-03-05 09:16 | Outpatient (CLI) | payer OTHER, MEDICAID, SELFPAY ==
--- NOTE | 2023-03-05 09:17 | DI.MG.S_ITS ---
UNILATERAL RIGHT DIGITAL DIAGNOSTIC MAMMOGRAM 3D/2D SHORT-TERM FOLLOW-UP: 03/05/2023 CLINICAL: Short term follow up of the right breast. Comparison is made to exams dated: 07/07/2022 mammogram, 11/18/2021 mammogram, and 05/28/2021 mammogram - [facility]. There are scattered areas of fibroglandular density in the right breast (category b / 25%-50% glandular tissue). There is a focal asymmetry in the right breast at 9 o'clock anterior depth, not significantly changed since 05/28/2021. No other significant masses or calcifications are seen in the breast. IMPRESSION: INCOMPLETE: NEEDS ADDITIONAL IMAGING EVALUATION Right breast focal asymmetry at 9 o'clock anterior depth, stable since 05/28/2021. Recommend further evaluation with targeted breast ultrasound, which will immediately follow this exam. Based on the Tyrer Cuzick model (a risk assessment model) the patient's lifetime risk is 10.7% and her 10 year risk is 3.5%. According to the ACR, ACS, and NCCN guidelines, an annual breast MRI exam along with mammogram is recommended if the patient's lifetime risk is 20% or greater. This exam was interpreted at Station ID: [id number]. NOTE: For mammograms, a report in lay terms will be sent to the patient. Approximately 15% of breast malignancies will not be visualized mammographically. In the management of a palpable breast mass, a negative mammogram must not discourage biopsy of a clinically suspicious lesion. Electronically Signed By: Hannah Morrison M.D. esb/:03/06/2023 00:26:08 ACR BI-RADS Category 0: Incomplete 3340F
--- NOTE | 2023-03-05 09:17 | DI.US.S_ITS ---
LIMITED ULTRASOUND OF RIGHT BREAST: 03/05/2023 CLINICAL: Patient returns for a 6 month follow up of the right breast. Comparison is made to exams dated: 03/05/2023 mammogram, 07/07/2022 mammogram, 11/18/2021 ultrasound, 11/18/2021 mammogram, 05/28/2021 ultrasound, and 05/28/2021 mammogram - [facility]. Color flow and real-time ultrasound of the right breast 9 o'clock region were performed. No sonographic correlate for focal asymmetry seen on mammogram at 9 o'clock position. IMPRESSION: PROBABLY BENIGN Right breast focal asymmetry at 9 o'clock anterior depth without sonographic correlate, stable since 05/28/2021. Finding is probably benign. Recommend follow-up mammogram in 3 months (June 2023) to demonstrate 2 year stability when patient will be due for bilateral exam. Findings and recommendations were conveyed to the patient during today's evaluation. This exam was interpreted at Station ID: [id number]. Electronically Signed By: Hannah sharma/:03/06/2023 00:31:52 letter sent: Followup Recommended Ultrasound BI-RADS: 3 Probably benign
== END ==
PROVIDERS: PCP Registered Nurse Diabetes Educator; Referring Provider Registered Nurse Diabetes Educator; Visit Provider Registered Nurse Diabetes Educator
DX: R92.8 Other abnormal and inconclusive findings on diagnostic imaging of breast (principal); N63.10 Unspecified lump in the right breast, unspecified quadrant; N64.89 Other specified disorders of breast
CPT/HCPCS: 76642; 77065; G0279

== ENCOUNTER → 2023-07-06 10:01 | Outpatient (CLI) | payer OTHER, MEDICAID, SELFPAY ==
--- NOTE | 2023-07-06 10:03 | DI.MG.S_ITS ---
BILATERAL DIGITAL DIAGNOSTIC MAMMOGRAM 3D/2D SHORT-TERM FOLLOW-UP: 07/06/2023 CLINICAL: Short term follow up of the right breast, due for bilateral imaging. Comparison is made to exams dated: 03/05/2023 mammogram, 07/07/2022 mammogram, 11/18/2021 mammogram, 05/28/2021 mammogram, and 04/22/2021 mammogram - [facility]. There are scattered areas of fibroglandular density in both breasts (category b / 25%-50% glandular tissue). Redemonstration of previously described 3 mm focal asymmetry in the right breast at 10 o'clock anterior depth. This is not significantly changed and was not seen on the prior ultrasound. No other significant masses, calcifications, or other findings are seen in either breast. IMPRESSION: BENIGN The 3 mm focal asymmetry in the right breast at 10 o'clock anterior depth has demonstrated two years of stability and is consistent with a benign process. There is no mammographic evidence of malignancy. A 1 year screening mammogram is recommended. Findings and recommendations were conveyed to the patient during today's evaluation. Based on the Tyrer Cuzick model (a risk assessment model) the patient's lifetime risk is 10.7% and her 10 year risk is 3.5%. According to the ACR, ACS, and NCCN guidelines, an annual breast MRI exam along with mammogram is recommended if the patient's lifetime risk is 20% or greater. This exam was interpreted at Station ID: [id number]. NOTE: For mammograms, a report in lay terms will be sent to the patient. Approximately 15% of breast malignancies will not be visualized mammographically. In the management of a palpable breast mass, a negative mammogram must not discourage biopsy of a clinically suspicious lesion. Electronically Signed By: Jarrod Bernstein M.D. aty/:07/06/2023 10:33:21 letter sent: Normal Exam ACR BI-RADS Category 2: Benign Finding(s) 3342F
== END ==
PROVIDERS: PCP Registered Nurse Diabetes Educator; Referring Provider Registered Nurse Diabetes Educator; Visit Provider Registered Nurse Diabetes Educator
DX: R92.8 Other abnormal and inconclusive findings on diagnostic imaging of breast (principal)
CPT/HCPCS: 77066; G0279

== ENCOUNTER 2023-08-31 17:31 | Emergency (ER) | payer OTHER, MEDICAID, SELFPAY ==
[2023-08-31 17:46] VITALS: BP 164/83; PULSE 88; RESP 18; TEMP 37.2; O2SAT 98; BMI 30.1
--- NOTE | 2023-08-31 17:52 | DI.RAD.S_ITS ---
PROCEDURE: XR CHEST 1V INDICATIONS: chest pain TECHNIQUE: One view of the chest was acquired. COMPARISON: [facility], CR, XR CHEST 1V, 02/04/2023, 15:02. [facility], CR, XR CHEST 2V, 02/18/2022, 13:58. FINDINGS: Surgical changes and devices: None. Lungs and pleura: Lungs are clear. No pleural effusions or pneumothorax. Mediastinum: Mediastinal contours appear normal. Heart size is normal. Bones and chest wall: No suspicious bony lesions. Overlying soft tissues appear unremarkable. IMPRESSION: No acute cardiopulmonary abnormality is seen. Approved by: David Smith M.D. on 08/31/2023 at 18:37
[2023-08-31 19:09] VITALS: BP 132/78; PULSE 82; RESP 14
[2023-08-31 19:39] LABS: Add Manual Diff / Slide Review NO; Basophils Absolute Auto 0 /uL (0-100); Basophils Percent Auto 0.8 % (0-2); Eosinophils Absolute Auto 100 /uL (0-450); Eosinophils Percent Auto 1.4 % (2-4); Hematocrit 33.8 % (36-46); Hemoglobin 11.7 g/dL (12.0-16.0); Lymphocytes Absolute Auto 2000 /uL (1100-4500); Lymphocytes Percent Auto 33.2 % (25-40); Mean Corpuscular HGB Conc 34.5 % (30-36); Mean Corpuscular Hemoglobin 34.7 PG (26-34); Mean Corpuscular Volume 100.5 fL (80-100); Monocytes Absolute Auto 700 /uL (0-900); Monocytes Percent Auto 11.3 % (3-14); Neutrophils Absolute Auto 3300 /uL (1500-7000); Neutrophils Percent Auto 53.3 % (50-75); Platelet Count 226 X10^3/uL (150-400); Red Blood Cell Count 3.36 X10^6/uL (4.0-5.2); Red Cell Distribution Width 13.6 % (11.6-14.8); White Blood Cell Count 6.1 X10^3/uL (4.5-11.0)
[2023-08-31 19:48] LABS: INR 0.9 (0.9-1.3); Prothrombin Time 10.2 SECONDS (9.4-12.5)
[2023-08-31 19:51] LABS: PTT Partial Thromboplastin Tim 32 SECONDS (25.1-36.5)
[2023-08-31 19:53] LABS: Alanine Aminotransferase 42 IU/L (<35); Albumin 4.4 g/dL (3.5-5.0); Albumin Globulin Ratio 1.5 (1.0-2.8); Alkaline Phosphatase 58 U/L (38-126); Aspartate Aminotransferase 33 IU/L (14-36); BUN Creatinine Ratio 26.4 (6-22); Bilirubin Total 0.4 mg/dL (0.2-1.3); Blood Urea Nitrogen 24 mg/dL (7-17); Calcium 10.2 mg/dL (8.4-10.2); Carbon Dioxide 29 mmol/L (22-32); Chloride 104 mmol/L (98-107); Creatine Kinase 82 U/L (30-135); Estimated Glomerular Filt Rate > 60 mL/min (>60); Glucose 88 mg/dL (70-100); HEMOLYSIS 32 (0-50); Lipase 134 U/L (23-300); Magnesium 1.7 mg/dL (1.6-2.3); Potassium 4.4 mmol/L (3.4-5.1); Sodium 137 mmol/L (137-145); Total Protein 7.4 g/dL (6.3-8.2)
[2023-08-31 20:05] LABS: Troponin I < 0.012 ng/mL (0.01-0.034)
--- NOTE | 2023-08-31 20:34 | PC.NURSE ---
to Rm 3 pt aao x 3 ambulatory, resp even and unlabored, no chest pain at present, cp has been intermittent for several months, pt has been given medications that have provided no relief
--- NOTE | 2023-08-31 20:37 | ED.CHESTPAIN ---
HPI - Chest Pain General Chief Complaint: Chest Pain Stated Complaint: sent by [facility] for partial heart attack Time Seen by Provider: 08/31/23 17:56 Source: patient Mode of arrival: Ambulatory Limitations: no limitations History of Present Illness HPI narrative: 58-year-old female was sent to the emergency department for evaluation from walk-in clinic. She went to the walk-in clinic because of shortness of breath and left-sided chest discomfort. Per report had an EKG which showed sinus tachycardia. Here in the emergency department her EKG is relatively unremarkable with a heart rate of 89. She denies any fevers. States the pain is on the left side of her chest. Not worse with palpation or movement. No abdominal pain nausea vomiting. No sore throat. She did receive aspirin prior to arrival Related Data Previous Rx's Medication Instructions Recorded losartan 50 mg tablet 50 mg PO BID #180 tabs 07/06/23 tirzepatide 2.5 mg/0.5 mL 2.5 mg (0.5 mL) SUBCUT QWEEK #2 mL 07/06/23 subcutaneous pen injector tirzepatide 5 mg/0.5 mL 5 mg (0.5 mL) SUBCUT QWEEK #2 mL 07/06/23 subcutaneous pen injector Allergies Allergy/AdvReac Type Severity Reaction Status Date / Time codeine [CODEINE] Allergy Unknown jittery,hea Verified 07/06/23 09:08 dache Sulfa (Sulfonamide Allergy Unknown Rash Verified 07/06/23 09:08 Antibiotics) pain killers Allergy Unknown severe Uncoded 07/06/23 09:08 headache Review of Systems Review of Systems ROS Unobtainable: All systems reviewed & are unremarkable except as noted in HPI and below Patient History Medical History Dyslipidemia Impaired fasting blood sugar Adjustment disorder with anxiety Left ankle injury Eczema Arthritis Sinus drainage Walking pneumonia HTN (hypertension) Abnormal pelvic ultrasound Muscle twitching Anxiety Family history of hypothyroidism Chickenpox (1976) History of recurrent ear infection (1974) Chronic low back pain (~07/2017) Kidney disease (1979) Cervical cancer (2002) Surgical History (Updated 07/06/23 @ 18:46 by CASSANDRA Swenson) Hx of lymph node biopsy (12/20/19) History of loop electrical excision procedure (LEEP) (2002) Hx of tubal ligation (1996) History of tonsillectomy (1977) Family History Brother Age: 46 Gout Rheumatoid arthritis Brother Age: 53 Cancer of blood vessel Child Age: 26 Ulcerative colitis Father Age: 83 Bladder cancer Hypertension Gout IBS (irritable bowel syndrome) Grandfather Heart disease Grandmother Mental health problem Mother Age: 80 Breast cancer Heart disease Hypertension Sister Age: 63 Fibromyalgia Social History household members: spouse Smoking Status: Never smoker alcohol intake: current Smoking Status: Never smoker alcohol intake frequency: a few times a week Alcohol type: wine Substance Use Type: does not use Exam Initial Vital Signs Initial Vital Signs: Vital Signs Temperature 98.9 F 08/31/23 17:46 Pulse Rate 88 08/31/23 17:46 Respiratory Rate 18 08/31/23 17:46 Blood Pressure 164/83 H 08/31/23 17:46 Pulse Oximetry 98 08/31/23 17:46 Oxygen Delivery Method Room Air 08/31/23 17:46 Const General: cooperative, comfortable and No ill appearing HENMT Head: normal to inspection and normocephalic Resp Effort & Inspection: normal respiratory effort Auscultation: clear to auscultation bilaterally Cardio Rate: regular rate Rhythm: regular rhythm Skin General: no rashes or lesions noted Neuro General: patient alert, patient awake, patient oriented x3 and moves all extremities Extrem General: capillary refill normal Scores HEART Score Heart Score history: Slightly Suspicious Heart Score EKG: Non-Specific repolarization disturbance Heart Score Age: 45-64 years old Heart Score risk factors: 1-2 risk factors Heart Score troponin: < or = to normal limit Heart Score Total: 3 Course Orders Ordered: ED Orders 08/31/23 19:23 Complete Blood Count AUTO DIFF Stat Comprehensive Metabolic Panel Stat Lipase Stat Magnesium Stat PTT Partial Thromboplastin Anam Stat Prothrombin Time INR Stat Troponin & CK Cardiac Panel Stat 08/31/23 22:12 Troponin & CK Cardiac Panel Stat Vital Signs Vital signs: Vital Signs - 8 hr 08/31/23 19:09 08/31/23 20:41 08/31/23 23:07 Temperature 98.9 F Pulse Rate 82 84 84 Respiratory Rate 14 20 18 Blood Pressure 132/78 187/94 H 174/87 H Pulse Oximetry 97 96 Oxygen Delivery Method Room Air MDM - Chest Pain Lab Data Attestation: I reviewed the patient's lab results. 08/31/23 19:23 08/31/23 19:23 Labs: Lab Results 08/31/23 08/31/23 Range/Units 19:23 22:12 WBC 6.1 (4.5-11.0) X10^3/uL RBC 3.36 L (4.0-5.2) X10^6/uL Hgb 11.7 L (12.0-16.0) g/dL Hct 33.8 L (36-46) % MCV 100.5 H (80-100) fL MCH 34.7 H (26-34) PG MCHC 34.5 (30-36) % RDW 13.6 (11.6-14.8) % Plt Count 226 (150-400) X10^3/uL Neut % (Auto) 53.3 (50-75) % Lymph % (Auto) 33.2 (25-40) % [place] % (Auto) 11.3 (3-14) % Eos % (Auto) 1.4 L (2-4) % Baso % (Auto) 0.8 (0-2) % Neut # (Auto) 3300 (1867-9264) /uL Lymph # (Auto) 2000 (3642-8276) /uL [place] # (Auto) 700 (0-900) /uL Eos # (Auto) 100 (0-450) /uL Baso # (Auto) 0 (0-100) /uL PT 10.2 (9.4-12.5) SECONDS INR 0.9 (0.9-1.3) APTT 32 (25.1-36.5) SECONDS Sodium 137 (137-145) mmol/L Potassium 4.4 (3.4-5.1) mmol/L Chloride 104 (98-107) mmol/L Carbon Dioxide 29 (22-32) mmol/L BUN 24 H (7-17) mg/dL Creatinine 0.91 (0.52-1.04) mg/dL Estimated GFR > 60 (>60) mL/min BUN/Creatinine Ratio 26.4 H (6-22) Glucose 88 (70-100) mg/dL Calcium 10.2 (8.4-10.2) mg/dL Magnesium 1.7 (1.6-2.3) mg/dL Total Bilirubin 0.4 (0.2-1.3) mg/dL AST 33 (14-36) IU/L ALT 42 H (<35) IU/L Alkaline Phosphatase 58 (38-126) U/L Total Creatine Kinase 82 81 (30-135) U/L Troponin I < 0.012 < 0.012 (0.01-0.034) ng/mL Total Protein 7.4 (6.3-8.2) g/dL Albumin 4.4 (3.5-5.0) g/dL Globulin 3.0 (1.7-4.1) g/dL Albumin/Globulin Ratio 1.5 (1.0-2.8) Lipase 134 (23-300) U/L Imaging Data Chest x-ray: Radiologist's Impression: PROCEDURE: XR CHEST 1V INDICATIONS: chest pain TECHNIQUE: One view of the chest was acquired. COMPARISON: [facility], , XR CHEST 1V, 02/04/2023, 15:02. [facility], , XR CHEST 2V, 02/18/2022, 13:58. FINDINGS: Surgical changes and devices: None. Lungs and pleura: Lungs are clear. No pleural effusions or pneumothorax. Mediastinum: Mediastinal contours appear normal. Heart size is normal. Bones and chest wall: No suspicious bony lesions. Overlying soft tissues appear unremarkable. IMPRESSION: No acute cardiopulmonary abnormality is seen ECG Data Attestation: I personally reviewed and interpreted this ECG as follows: Interpretation: Sinus rhythm Ventricular rate 89 Normal axis Normal QRS Nonspecific ST T wave changes MDM Narrative Medical decision making narrative: Nonischemic EKG, not tachycardic on EKG here at this facility. Chest x-ray is unremarkable. Not hypoxic. Not tachypneic. Troponins are negative x2. Low suspicion for ACS. Low suspicion for pneumonia. Low suspicion for pulmonary embolism patient does history of hypertension. Recommend that she continue to take her blood pressure at home and talk with her primary doctor about a follow-up to discuss stress test. She was given return precautions. She expressed understanding and agreement. Discharge Plan Departure Patient Disposition: Home Clinical Impression: Atypical chest pain Instructions: DI for Atypical Chest Pain Activity Restrictions/Additional Instructions: Recommend that you continue to take all of your medications as directed. Continue to take your blood pressure at home like we discussed. Contact your primary doctor to discuss the indications for referral to see Cardiology and also to discuss the indications for a stress test. Return to the emergency department for new symptoms. Prescriptions: No Action losartan 50 mg tablet 50 mg PO BID Qty: 180 0RF tirzepatide 2.5 mg/0.5 mL pen injector 2.5 mg SUBCUT QWEEK Qty: 2 0RF tirzepatide 5 mg/0.5 mL pen injector 5 mg SUBCUT QWEEK Qty: 2 0RF Rx Instructions: Take after completing 4 weeks at 2.5mg dose. Referrals: Klever Beltran ARNP [Primary Care Provider] - Stand Alone Forms: Patient Portal/API
[2023-08-31 20:41] VITALS: BP 187/94; PULSE 84; RESP 20; TEMP 37.2; O2SAT 97
[2023-08-31 22:35] LABS: Creatine Kinase 81 U/L (30-135)
[2023-08-31 22:48] LABS: Troponin I < 0.012 ng/mL (0.01-0.034)
[2023-08-31 23:07] VITALS: BP 174/87; PULSE 84; RESP 18; O2SAT 96
== END 2023-08-31 23:09 | disposition home or self-care (01) ==
PROVIDERS: Emergency Medicine; Emergency Provider Emergency Medicine; PCP Registered Nurse Diabetes Educator
DX: R07.89 Other chest pain (principal); R06.02 Shortness of breath
CPT/HCPCS: 36415; 71045; 80053; 82550; 83690; 83735; 84484; 85025; 85610; 85730; 93005; 99283; 99284

== ENCOUNTER → 2023-09-30 15:03 | Outpatient (CLI) | payer OTHER, MEDICAID, SELFPAY ==
--- NOTE | 2023-09-30 15:04 | DI.NM.S_ITS ---
PROCEDURE: NM EXERCISE TREADMILL NON NUC COMPARISON: None INDICATIONS: Atypical Chest Pain FINDINGS: Rest ECG sinus rhythm. Herve protocol 7:00, maximum heart rate 155 bpm (95% peak predicted), maximum blood pressure 178/100, 10.1 METS, GIGI 0%. Exercise ECG sinus tachycardia no ST segment changes or arrhythmia. The patient complained of 1 out of 10 substernal chest tightness at peak exercise that resolved in recovery. IMPRESSION: Low risk study. No evidence of exercise-induced ischemia or arrhythmia. Normal hemodynamic response. Fair exercise capacity. Dictated by: Niya Suárez D.O. on 10/01/2023 at 16:22 Approved by: Niya Suárez D.O. on 10/01/2023 at 16:24
== END ==
LOC: RAD 15:04
PROVIDERS: PCP Registered Nurse Diabetes Educator; Referring Provider Nurse Practitioner Family; Visit Provider Nurse Practitioner Family
DX: R07.89 Other chest pain (principal)
CPT/HCPCS: 93017

== ENCOUNTER → 2023-10-26 11:15 | Outpatient (CLI) | payer OTHER, MEDICAID, SELFPAY ==
--- NOTE | 2023-10-26 11:16 | DI.RAD.S_ITS ---
PROCEDURE: XR KNEE RT 3V INDICATIONS: bilateral knee pain TECHNIQUE: 3 views of the knee were acquired. COMPARISON: [facility], CR, XR KNEE LT 3V, 10/26/2023, 11:20. FINDINGS: Bones: No fractures or dislocations. No suspicious bony lesions. Mild degenerative joint disease. Soft tissues: No joint effusion. No suspicious soft tissue calcifications. IMPRESSION: Mild degenerative joint disease. Dictated by: Fany Ibarra M.D. on 10/26/2023 at 14:28 Approved by: Fany Ibarra M.D. on 10/26/2023 at 14:29
--- NOTE | 2023-10-26 11:16 | DI.RAD.S_ITS ---
PROCEDURE: XR KNEE LT 3V INDICATIONS: bilateral knee pain TECHNIQUE: 3 views of the knee were acquired. COMPARISON: [facility], CR, XR KNEE RT 3V, 10/26/2023, 11:20. FINDINGS: Bones: No fractures or dislocations. No suspicious bony lesions. Mild degenerative joint disease. Soft tissues: No joint effusion. No suspicious soft tissue calcifications. IMPRESSION: Mild degenerative joint disease. Dictated by: Fany Ibarra M.D. on 10/26/2023 at 14:12 Approved by: Fany Ibarra M.D. on 10/26/2023 at 14:28
== END ==
PROVIDERS: PCP Registered Nurse Diabetes Educator; Referring Provider Registered Nurse Diabetes Educator; Visit Provider Registered Nurse Diabetes Educator
DX: M17.0 Bilateral primary osteoarthritis of knee (principal); M25.561 Pain in right knee; M25.562 Pain in left knee
CPT/HCPCS: 73562

== ENCOUNTER → 2024-07-13 09:59 | Outpatient (CLI) | payer OTHER, SELFPAY ==
--- NOTE | 2024-07-13 10:01 | DI.MG.S_ITS ---
BILATERAL DIGITAL SCREENING MAMMOGRAM 3D/2D WITH CAD: 07/13/2024 CLINICAL: Routine screening. Family history of breast cancer. Comparison is made to exams dated: 07/06/2023 mammogram, 07/07/2022 mammogram, 04/22/2021 mammogram, and 12/14/2017 mammogram - [facility]. There are scattered areas of fibroglandular density (category b / 25%-50% glandular tissue). Current study was also evaluated with a Computer Aided Detection (CAD) system. No significant masses, calcifications, or other findings are seen in either breast. There has been no significant interval change. IMPRESSION: NEGATIVE There is no mammographic evidence of malignancy. A 1 year screening mammogram is recommended. Based on the Tyrer Cuzick model (a risk assessment model) the patient's lifetime risk is 13.1% and her 10 year risk is 4.6%. According to the ACR, ACS, and NCCN guidelines, an annual breast MRI exam along with mammogram is recommended if the patient's lifetime risk is 20% or greater. This exam was interpreted at Station ID: [id number]. NOTE: For mammograms, a report in lay terms will be sent to the patient. Approximately 15% of breast malignancies will not be visualized mammographically. In the management of a palpable breast mass, a negative mammogram must not discourage biopsy of a clinically suspicious lesion. Electronically Signed By: Sarath cuellar/oli:07/13/2024 18:00:34 letter sent: Normal Exam ACR BI-RADS Category 1: Negative
== END ==
PROVIDERS: PCP Registered Nurse Diabetes Educator; Referring Provider Registered Nurse Diabetes Educator; Visit Provider Registered Nurse Diabetes Educator
DX: Z12.31 Encounter for screening mammogram for malignant neoplasm of breast (principal); Z80.3 Family history of malignant neoplasm of breast
CPT/HCPCS: 77063; 77067

== ENCOUNTER → 2024-09-13 08:36 | Outpatient (CLI) | payer OTHER, SELFPAY ==
--- NOTE | 2024-09-13 08:38 | DI.US.S_ITS ---
PROCEDURE: US PELVIC COMPLETE INDICATIONS: Left pelvic pain TECHNIQUE: Real-time scanning was performed of the pelvic organs, with image documentation. Additional endovaginal scanning was necessary due to incomplete visualization of the adnexal and endometrial structures by transabdominal scanning. COMPARISON: [facility], CR, XR LUMBAR SPINE 2-3V, 11/18/2021, 11:10. [facility], US, US PELVIC COMPLETE, 09/07/2020, 13:24. FINDINGS: Uterus: Uterus is anteverted and normal in size at 6.9 x 3.7 x 5.1 cm. The myometrium is heterogeneous. The endometrium measures 3.1 mm combined thickness. Ovaries: The right ovary measures 1.3 x 1.8 x 1.5 cm, with a calculated ovarian volume of 1.8 cc. The left ovary measures 1.4 x 2.1 x 1.5 cm, with a calculated ovarian volume of 2.3 cc. The ovaries have a normal sonographic appearance. Less than 12 follicles can be seen in each ovary. No adnexal masses are seen. Other: No pathologic free abdominal or pelvic fluid. IMPRESSION: 1. Heterogeneous myometrium which can be associated with adenomyosis in the appropriate clinical setting. 2. No source for left pelvic pain identified. If pain persists, consider cross-sectional imaging such as CT or MRI. We strive to produce accurate, complete, and clear reports of imaging services. To assist us in improving patient care, this report was composed using standard report templates and voice recognition software. Therefore, it may contain abnormal punctuation, insertions and/or omissions. Occasional wrong-word or sound-alike substitutions may occur. Though we review the report and make efforts to correct it, we do recommend that the report be read carefully in proper context to recognize any text inaccuracies. Dictated by: Bernardino Sheppard [facility] Interpreted: Jasen Medeiros MD on 09/13/2024 at 9:19 Approved by: Jasen Medeiros M.D. on 09/13/2024 at 15:02
== END ==
LOC: US 08:36
PROVIDERS: PCP Registered Nurse Diabetes Educator; Referring Provider Obstetrics & Gynecology; Visit Provider Obstetrics & Gynecology
DX: R10.2 Pelvic and perineal pain (principal)
CPT/HCPCS: 76830; 76856; 93976

== ENCOUNTER → 2024-12-30 10:21 | Outpatient (CLI) | payer OTHER, SELFPAY ==
[2024-12-30 15:10] LABS: Follicle Stimulating Hormone 14.2 mIU/mL
== END ==
PROVIDERS: Obstetrics & Gynecology; PCP Registered Nurse Diabetes Educator; Referring Provider Registered Nurse Diabetes Educator; Visit Provider Registered Nurse Diabetes Educator
DX: N95.1 Menopausal and female climacteric states (principal)
CPT/HCPCS: 36415; 82627; 82670; 82677; 82679; 83001; 83002; 84270; 84402; 84403

== ENCOUNTER → 2025-01-12 07:54 | Outpatient (CLI) | payer OTHER, SELFPAY ==
[2025-01-12 08:42] LABS: Hematocrit 38.9 % (36-46); Hemoglobin 13.2 g/dL (12.0-16.0); Mean Corpuscular HGB Conc 34.0 % (30-36); Mean Corpuscular Hemoglobin 33.3 PG (26-34); Mean Corpuscular Volume 97.9 fL (80-100); Platelet Count 252 X10^3/uL (150-400)
[2025-01-12 08:59] LABS: Alanine Aminotransferase 32 IU/L (<35); Albumin 4.7 g/dL (3.5-5.0); Albumin Globulin Ratio 1.6 (1.0-2.8); Alkaline Phosphatase 59 U/L (38-126); Blood Urea Nitrogen 24 mg/dL (7-17); Calcium 10.4 mg/dL (8.4-10.2); Carbon Dioxide 26 mmol/L (22-32); Chloride 102 mmol/L (98-107); Cholesterol 247 mg/dL (140-199); Estimated Glomerular Filt Rate > 60 mL/min (>60); Globulin 2.9 g/dL (1.7-4.1); Glucose 98 mg/dL (70-99); HDL Cholesterol 58 mg/dL (40-60); HEMOLYSIS < 15 (0-50); Potassium 5.1 mmol/L (3.4-5.1); Sodium 136 mmol/L (137-145); Total Protein 7.6 g/dL (6.3-8.2); Triglycerides 171 mg/dL (35-150)
[2025-01-12 09:31] LABS: TSH w/ Reflex to FT4 1.16 uIU/mL (0.47-4.68)
== END ==
PROVIDERS: PCP Registered Nurse Diabetes Educator; Referring Provider Registered Nurse Diabetes Educator; Visit Provider Obstetrics & Gynecology
DX: I10 Essential (primary) hypertension (principal); E78.2 Mixed hyperlipidemia; E88.819 Insulin resistance, unspecified
CPT/HCPCS: 36415; 80053; 80061; 84443; 85027

== ENCOUNTER → 2025-01-16 10:01 | Outpatient (CLI) | payer OTHER, SELFPAY ==
--- NOTE | 2025-01-16 10:03 | DI.RAD.S_ITS ---
PROCEDURE: XR DEXA AXIAL SKELETON INDICATIONS: HYPERCALCEMIA COMPARISON: None. FINDINGS: Lumbar Spine: Bone mineral density 0.941 g/cm2, T score -1.0. Left Femoral Neck: Bone mineral density 0.690 g/cm2, T score -1.4. Left Hip: Bone mineral density 0.876 g/cm2, T score -0.5. Fracture Risk Calculation (when applicable): 10-year fracture risk of a major osteoporotic fracture 7.3 percent and of a hip fracture 0.5 percent. IMPRESSION: Osteopenia Follow-up guidelines as follows: Osteoporosis: Consider a repeat DEXA and Vertebral Fracture Assessment (VFA) exam in 2 years or sooner if medically necessary, to reassess this patient's status. Osteopenia: Consider a repeat DEXA in 2-3 years to reassess this patient's status, or if there is a new clinical indication. Normal: Consider a repeat DEXA in 5 years or sooner, or if there is a new clinical indication. All treatment decisions require clinical judgment and consideration of individual patient factors, including patient preferences, comorbidities, previous drug use, risk factors not captured in the FRAX model (e.g., frailty, falls, vitamin D deficiency, increased bone turnover, interval significant decline in bone density ) and possible under- or over-estimation of fracture risk by FRAX. In addition, the NOF Guide recommends that FDA-approved medical therapies be considered in postmenopausal women and men age >= 50 years with a: * Hip or vertebral (clinical or morphometric) fracture * T-score of <=-2.5 at the spine or hip * Ten-year fracture probability by FRAX of >= 3% for hip fracture or >=20% for major osteoporotic fracture. Dictated by: Joe Welsh M.D. on 01/17/2025 at 17:50 Approved by: Joe Welsh M.D. on 01/17/2025 at 17:51
[2025-01-16 11:55] LABS: Free T4, Direct Thyroxine 0.76 ng/dL (0.78-2.19)
[2025-01-16 12:05] LABS: Vitamin D 25 Hydroxy (D3) 76.2 ng/mL (30.0-100.0)
[2025-01-18 10:12] LABS: Calcium 10.4 mg/dL (8.7-10.2); Parathyroid Hormone, Intact 52 pg/mL (15-65)
== END ==
PROVIDERS: Registered Nurse Diabetes Educator; PCP Obstetrics & Gynecology; Referring Provider Obstetrics & Gynecology; Visit Provider Obstetrics & Gynecology
DX: M85.852 Other specified disorders of bone density and structure, left thigh (principal); E83.52 Hypercalcemia; E88.819 Insulin resistance, unspecified; R73.01 Impaired fasting glucose; I10 Essential (primary) hypertension
CPT/HCPCS: 36415; 77080; 82306; 82310; 83970; 84439; 84681

== ENCOUNTER → 2025-04-09 10:47 | Outpatient (CLI) | payer OTHER, SELFPAY ==
[2025-04-09 11:53] LABS: Creatinine 24 Hour Urine 1453 mg/day (800-1800); Total Volume Urine 4000 mL
[2025-04-09 13:50] LABS: Calcium 24 Hour Urine 532 mg/day (100-300); Total Volume Urine 4000 mL
== END ==
PROVIDERS: PCP Registered Nurse Diabetes Educator; Referring Provider Registered Nurse Diabetes Educator; Visit Provider Student in an Organized Health Care Education/Training Program
DX: E21.3 Hyperparathyroidism, unspecified (principal)
CPT/HCPCS: 82340; 82570

== ENCOUNTER 2025-04-27 23:27 | Emergency (ER) | payer OTHER, SELFPAY ==
[2025-04-27 23:36] VITALS: BP 122/60; PULSE 94; RESP 16; TEMP 36.3; O2SAT 97; BMI 26.0
--- NOTE | 2025-04-27 23:44 | ED.FALL ---
HPI - Fall General Chief Complaint: Fall Stated Complaint: Fall, head laceration Time Seen by Provider: 04/27/25 23:37 History of Present Illness HPI Narrative: Patient is a 51-year-old female history of hypertension presenting today after ground level fall. She reports that she slipped in the hallway in hit her head on the corner. There was quite a lot of blood. She is not on any antiplatelet or anticoagulation medication. She did not lose consciousness she has no nausea or vomiting. But does have a small cut on her head. She washed it out prior to coming. Denies any neck pain no other injuries. Related Data Home Medications ?Medication ?Instructions ?Recorded ?Confirmed triamcinolone acetonide 0.1 % 1 applic topical 10/26/23 01/16/25 topical cream ondansetron HCl 4 mg tablet 4 mg PO .QWK 01/16/25 01/16/25 tirzepatide 5 mg/0.5 mL 5 mg SUBCUT QWEEK Weightloss 01/16/25 01/16/25 subcutaneous pen injector Previous Rx's ?Medication ?Instructions ?Recorded amlodipine 2.5 mg tablet 2.5 mg PO DAILY #90 tabs 02/07/25 losartan 100 mg tablet 100 mg PO BEDTIME #90 tabs 02/28/25 Allergies Allergy/AdvReac Type Severity Reaction Status Date / Time Sulfa (Sulfonamide Allergy Unknown Rash Verified 04/27/25 23:36 Antibiotics) codeine (CODEINE) AdvReac Unknown jittery,hea Verified 04/27/25 23:36 dache Opioids - Morphine Analogues AdvReac Headache Verified 04/27/25 23:36 Patient History Medical History Dyslipidemia Impaired fasting blood sugar Adjustment disorder with anxiety Left ankle injury Eczema Arthritis Sinus drainage Walking pneumonia HTN (hypertension) Abnormal pelvic ultrasound Muscle twitching Anxiety Family history of hypothyroidism Chickenpox (1976) History of recurrent ear infection (1974) Chronic low back pain (~07/2017) Kidney disease (1979) Cervical cancer (2002) Surgical History Hx of lymph node biopsy (12/20/19) History of loop electrical excision procedure (LEEP) (2002) Hx of tubal ligation (1996) History of tonsillectomy (1977) Family History Brother Age: 47 Rheumatoid arthritis Brother Age: 54 Cancer of blood vessel Child Age: 27 Ulcerative colitis Father Age: 84 Bladder cancer Kidney disease Diverticula of colon Grandfather Heart disease Grandmother Breast cancer Mother Age: 81 Breast cancer Heart disease Grandmother Breast cancer Grandfather Multiple sclerosis Sister Fibromyalgia Rheumatoid arthritis Lupus Social History household members: spouse Smoking Status: Never smoker alcohol intake: current alcohol intake frequency: a few times a week Alcohol type: wine Exam Initial Vital Signs Initial Vital Signs: Vital Signs Temperature 97.4 F L 04/27/25 23:36 Pulse Rate 94 H 04/27/25 23:36 Respiratory Rate 16 04/27/25 23:36 Blood Pressure 122/60 04/27/25 23:36 Pulse Oximetry 97 04/27/25 23:36 Oxygen Delivery Method Room Air 04/27/25 23:36 GENERAL: Well-appearing, well-nourished and in no acute distress. HEAD: Small 1 cm laceration left parietal side no depression no crepitation no active bleeding good skin approximation CARDIOVASCULAR: peripheral pulses in tact, cap refill <2 sec RESPIRATORY: No respiratory distress, speaks in full sentences without difficulty [ABDOMEN: Soft, nontender, no guarding or rebound] EXTREMITIES: Normal range of motion, no clubbing or edema. Neurovascularly intact NEUROLOGICAL: Cranial nerves II through XII grossly intact. Normal gait and speech. SKIN: Warm, dry, no petechiae, no rashes or lesions. Procedures Laceration Repair Laceration 1: Site: scalp Side (If applicable): left Size (cm): 1 Description: linear Depth: simple, single layer Skin layer closed with: kam (1) Scores [place] Citizen CT Head Rule Age <16 years old: No Patient on blood thinners: No Seizure after injury: No Exclusion: Patient NOT Excluded, Proceed to next steps GCS < 15 at 2 hr post trauma: No Suspected open or depressed skull fracture: No Any sign of basilar skull fracture (hemotympanum, raccoon eyes, Pena's sign, CSF neil-/rhinorrhea): No Two or more episodes of vomiting: No Age greater or equal to 65 years: No Retrograde amnesia to the event greater or equal to 30 min: No Dangerous Mechanism (pedestrian vs. mv, occupant ejected from mv, fall from >3 ft or > 5 stairs): No Recommendation: CT unnecessary GCS [place] coma scale eye opening: Spontaneous Terrie coma scale verbal response: Orientated Terrie coma scale motor response: Obey commands Terrie coma scale total score: 15 Course Vital Signs Vital signs: Vital Signs - 8 hr 04/27/25 23:36 Temperature 97.4 F L Pulse Rate 94 H Respiratory Rate 16 Blood Pressure 122/60 Pulse Oximetry 97 Oxygen Delivery Method Room Air MDM - Fall MDM Narrative Medical decision making narrative: Patient healthy 59 year old female presenting today with mechanical ground level fall. She did fall her head on the corner. She did have bleeding but bleeding has now stopped and well-controlled. She has a small area of open skin. Not on any antiplatelet anticoagulation medication. No concern for skull fracture. Her neck is supple moving it freely no concern for cervical fracture either. We discussed staple versus no staple at this time agree that she would benefit from 1 staple. She tolerated the procedure well. At this time supportive care Discharge Plan Departure Patient Disposition: Home Clinical Impression: Laceration of head, Closed head injury Instructions: DI for Laceration Repair -- [place], Closed Head Injury Activity Restrictions/Additional Instructions: *You have been diagnosed with closed head injury, head laceration *What to do: At this time have staple removed in about 5-7 days. Okay to wash and bathe as normal. No soaking or swimming *Continue to take medications as directed Tylenol 1000 mg every 6 hours if needed for [id number] pain Motrin 600 mg every 6 hours if needed for [id number] *Follow up with your primary care provider in 2-3 days or call [phone] *Return to ER if you should have increasing pain redness swelling persistent vomiting or any new, worsening or concerning symptoms Prescriptions: No Action amlodipine 2.5 mg tablet 2.5 mg PO DAILY Qty: 90 0RF losartan 100 mg tablet 100 mg PO BEDTIME Qty: 90 1RF triamcinolone acetonide 0.1 % cream 1 applic topical ondansetron HCl 4 mg tablet 4 mg PO .QWK tirzepatide 5 mg/0.5 mL pen injector 5 mg SUBCUT QWEEK Patient Comments: Telehealth prescribed Referrals: Klever Beltran ARNP [Primary Care Provider, Medical] Stand Alone Forms: Patient Portal/API
== END 2025-04-27 23:58 | disposition home or self-care (01) ==
LOC: ED 23:51
PROVIDERS: Emergency Provider Emergency Medicine; PCP Registered Nurse Diabetes Educator
DX: S01.01XA Laceration without foreign body of scalp, initial encounter (principal); S09.90XA Unspecified injury of head, initial encounter; I10 Essential (primary) hypertension; W01.198A Fall on same level from slipping, tripping and stumbling with subsequent striking against other object, initial encounter
CPT/HCPCS: 12001; 99281; 99282

== ENCOUNTER → 2025-05-24 16:20 | Outpatient (CLI) | payer OTHER, SELFPAY ==
--- NOTE | 2025-05-24 16:21 | DI.RAD.S_ITS ---
PROCEDURE: XR KNEE RT 3V INDICATIONS: reeval chronic bilat knee pain TECHNIQUE: 3 views of the knee were acquired. COMPARISON: [facility], CR, XR KNEE LT 3V, 10/26/2023, 11:20. FINDINGS: Bones: No fractures or dislocations. No suspicious bony lesions. Soft tissues: No joint effusion. No suspicious soft tissue calcifications. IMPRESSION: No acute bony abnormality or significant effusion. Dictated by: Chuy Louise M.D. on 05/25/2025 at 21:15 Approved by: Chuy Louise M.D. on 05/25/2025 at 21:15
--- NOTE | 2025-05-24 16:21 | DI.RAD.S_ITS ---
PROCEDURE: XR KNEE LT 3V INDICATIONS: reeval chronic bilat knee pain TECHNIQUE: 3 views of the knee were acquired. COMPARISON: [facility], CR, XR KNEE LT 3V, 10/26/2023, 11:20. FINDINGS: Bones: No fractures or dislocations. No suspicious bony lesions. Soft tissues: No joint effusion. No suspicious soft tissue calcifications. IMPRESSION: No acute bony abnormality or significant effusion. Dictated by: Chuy Louise M.D. on 05/25/2025 at 21:15 Approved by: Chuy Louise M.D. on 05/25/2025 at 21:15
--- NOTE | 2025-05-24 16:21 | DI.RAD.S_ITS ---
PROCEDURE: XR CERVICAL SPINE 2V OR 3V INDICATIONS: eval chronic neck pain TECHNIQUE: 3 view(s) of the cervical spine were acquired. COMPARISON: None. FINDINGS: Bones: No fractures or dislocations to the T1 level. The lateral masses of C1 appear intact on the odontoid view. No suspicious bony lesions. Reversal of the normal cervical lordosis. Mild to moderate, multilevel degenerative disc disease and diffuse facet arthrosis. Soft tissues: No prevertebral soft tissue swelling. IMPRESSION: Mild to moderate, multilevel degenerative disc disease and diffuse facet arthrosis. Dictated by: Chuy Louise M.D. on 05/25/2025 at 20:34 Approved by: Chuy Louise M.D. on 05/25/2025 at 20:35
== END ==
PROVIDERS: PCP Registered Nurse Diabetes Educator; Referring Provider Registered Nurse Diabetes Educator; Visit Provider Registered Nurse Diabetes Educator
DX: M47.812 Spondylosis without myelopathy or radiculopathy, cervical region (principal); M50.30 Other cervical disc degeneration, unspecified cervical region; M25.561 Pain in right knee; M25.562 Pain in left knee; M54.2 Cervicalgia; G89.29 Other chronic pain
CPT/HCPCS: 72040; 73562